=== PATIENT | male | born 1975 | race Caucasian/White ===

== ENCOUNTER 2021-03-31 01:18 | Emergency (ER) | payer OTHER, SELFPAY ==
--- NOTE | ~2021-03-31 | XR_ITS ---
EXAMINATION: XR hand LT min 3V DATE: 03/31/2021 03:51 INDICATION: Pain at the distal left third digit. TECHNIQUE: Posteroanterior, oblique and lateral views of the left hand were obtained. COMPARISON: 02/27/2011 FINDINGS: Alignment is normal. No acute fracture. Old healed fracture at the neck of the fifth metacarpal. Mild osteoarthritis at the second distal interphalangeal joint. Remaining joint spaces are relatively pre served. Soft tissues are unremarkable. IMPRESSION: 1. No acute osseous abnormality. Reviewed, dictated and finalized at location A.
[2021-03-31 01:24] VITALS: BP 168/93; PULSE 108; RESP 20; TEMP 36.6; O2SAT 94
[2021-03-31 03:42] VITALS: BP 143/95; PULSE 82; RESP 17; TEMP 36.7; O2SAT 97
[2021-03-31] MEDS: HYDROcodone/acetaminophen (*CRX) 5-325 MG TABLET 1 TAB PO (03:44)
[2021-03-31] MEDS: CLINDAMYCIN HCL 150 MG CAP 300 MG PO (03:44)
--- NOTE | 2021-03-31 04:38 | ED.GENADULT ---
HPI - General Adult General Chief complaint: Extremity Injury, Upper Stated complaint: finger infection Time Seen by Provider: 03/31/21 03:27 History of Present Illness HPI narrative: Is a 46-year-old gentleman who presents the emergency department chief complaint of left middle finger swelling. The patient states he noticed this or develop some redness around the cuticle area noticed that is tender to touch denies purulent drainage but does report that it feels as though he has not ingrown fingernail. Patient states that he has had no trauma to that area denies foreign body or laceration. Related Data Allergies Allergy/AdvReac Type Severity Reaction Status Date / Time Penicillins Allergy Unknown Verified 11/02/17 08:53 Review of Systems Review of Systems: A 10 system review of systems was completed on the patient and is negative except for what is stated in the HPI. Nursing and ancillary documentation was reviewed. [facility] Family History Family History Mother Diabetes mellitus Family history of elevated blood lipids Depression Family history of malignant neoplasm of breast in first degree relative Family history of type 2 diabetes mellitus Father Hypertension Family history of elevated blood lipids Other Family history of cardiovascular disease Family history of malignant neoplasm Social History Social History Smoking status: Current every day smoker Second hand tobacco smoke exposure: Yes Alcohol intake: current Exam Narrative: GENERAL: Well-appearing, well-nourished, and in no acute distress. HEAD: Normocephalic, atraumatic. EYES: PERRLA and EOMI. ENT: Nares clear, no rhinorrhea or epistaxis. Mucous membranes moist. NECK: Supple. CHEST: Clear to auscultation. No respiratory distress. HEART: Regular rate and rhythm. No murmur heard. Normal peripheral pulses. ABDOMEN: Soft, nontender, nondistended, normal active bowel sounds. EXTREMITIES: Normal range of motion. No edema. SKIN: Warm, dry, no rash. NEURO: No focal deficits. Alert and oriented x3. PSYCH: Normal mood and affect. Course Vital Signs Vital signs: Vital Signs Temperature 36.6 C 03/31/21 01:24 Pulse Rate 108 H 03/31/21 01:24 Respiratory Rate 20 03/31/21 01:24 Blood Pressure 168/93 H 03/31/21 01:24 Pulse Oximetry 94 03/31/21 01:24 Temperature 36.7 C 03/31/21 03:42 Pulse Rate 82 03/31/21 03:42 Respiratory Rate 17 03/31/21 03:42 Blood Pressure 143/95 H 03/31/21 03:42 Pulse Oximetry 97 03/31/21 03:42 Medical Decision Making Vital Signs Vital Signs: Vital Signs Temperature 36.6 C 03/31/21 01:24 Pulse Rate 108 H 03/31/21 01:24 Respiratory Rate 20 03/31/21 01:24 Blood Pressure 168/93 H 03/31/21 01:24 Pulse Oximetry 94 03/31/21 01:24 Temperature 36.7 C 03/31/21 03:42 Pulse Rate 82 03/31/21 03:42 Respiratory Rate 17 03/31/21 03:42 Blood Pressure 143/95 H 03/31/21 03:42 Pulse Oximetry 97 03/31/21 03:42 Discharge Plan Discharge Clinical Impression: Cellulitis of left middle finger Patient Disposition: Home, Self-Care Condition: Stable Instructions: Antibiotic Form, Cellulitis (ED) Prescriptions: New clindamycin HCl 300 mg capsule 300 mg PO Q6H 7 Days Qty: 28 RF: 0 No Action cyclobenzaprine 10 mg tablet 10 mg PO BID Qty: 20 RF: 0 Follow-up/Referrals: Greg Castano MD [Primary Care Provider] - Time of Disposition: 04:40
== END 2021-03-31 05:07 | disposition home or self-care (01) ==
PROVIDERS: Emergency Provider Emergency Medicine; PCP Internal Medicine
DX: L03.012 Cellulitis of left finger (principal); F17.200 Nicotine dependence, unspecified, uncomplicated
CPT/HCPCS: 73130; 99283; A9270

== ENCOUNTER → 2021-08-04 17:08 | Outpatient (CLI) | payer OTHER, SELFPAY ==
--- NOTE | ~2021-08-04 | XR_ITS ---
EXAMINATION: XR knee RT min 4V EXAM DATE: 08/04/2021 17:24 INDICATION: M25.561 - Pain in right knee . TECHNIQUE: Right knee frontal, crosstable lateral, orthogonal oblique projections for interpretation . There is no prior study for comparison. FINDINGS: No evidence osteochondral defect or joint body in the right knee joint. There is mild tri compartmental primary osteoarthritis. Probable small joint effusion. There are no acute fractures id entified. No radiopaque foreign bodies identified. IMPRESSION: 1. Small right knee joint effusion. 2. Mild osteoarthritis. Reviewed, dictated and finalized at location A. [employer]
== END ==
LOC: EXPCRAD 17:11
PROVIDERS: PCP Internal Medicine; Visit Provider Internal Medicine
DX: M25.461 Effusion, right knee (principal); M17.11 Unilateral primary osteoarthritis, right knee
CPT/HCPCS: 73564

== ENCOUNTER 2021-12-14 05:52 | Inpatient (IN) | payer OTHER, SELFPAY ==
[2021-12-14] VITALS (11 sets, daily range): BP systolic 138–159; BP diastolic 80–108; PULSE 78–97; RESP 16–18; TEMP 36.6–37; O2SAT 93–100; BMI 35.0
--- NOTE | ~2021-12-14 | XR_ITS ---
EXAMINATION: XR abdomen NG/feed tube insert DATE: 12/14/2021 12:14 INDICATION: Nasogastric tube placement. TECHNIQUE: An upright view of the abdomen was obtained. COMPARISON: CT abdomen and pelvis 12/14/2021 FINDINGS: The lower abdomen is excluded. The nasogastric tube tip is in the stomach. There is dilated small and large bowel. IMPRESSION: 1. Nasogastric tube tip in the stomach. 2. Dilated bowel, consistent with distal colonic obstruction. Reviewed, dictated and finalized at location A.
--- NOTE | ~2021-12-14 | XR_ITS ---
EXAMINATION: XR enema water soluble EXAM DATE: 12/16/2021 13:37 INDICATION: Sigmoid stricture, possible obstruction TECHNIQUE: Fluoroscopy used during XR enema water soluble performed by Dr. Deshaun Ulloa. Total fluor oscopic time of 0.4. The DAP for this procedure was 17 mGym2. A total of 55 images sent to PACS fro m the exam. Correlation is made to prior barium enema 10/28/2017, and CT scan from 12/14/2021. FINDINGS: Rectal tube was inserted. Small amount of contrast was instilled into the rectum. The ballo on was then inflated under fluoroscopy. Rectal vault was then distended. There is tapered appearance to the rectosigmoid junction. Severe narrowing of the sigmoid colon was demonstrated for about 8-10 c m, lumen only a few millimeters in thickness. Small trickle of contrast did make it beyond this and s tarted to outline stool-filled descending colon proximal to stricture segment. Compared to 2018, sign ificant progression in luminal narrowing. Small outpouching of contrast just distal to the obstruction, probably diverticulum measuring about 2 cm. No uncontained contrast extravasation was demonstrated. IMPRESSION: 1. Severely strictured 8-10 cm length of sigmoid colon. Possible underlying etiologies include adenoc arcinoma and inflammatory related stricture. 2. Colonic diverticulum. Reviewed, dictated and finalized at location A. IMPRESSION: 1. Severely strictured 8-10 cm length of sigmoid colon. Possible underlying rony ologies include adenocarcinoma and inflammatory related stricture. 2. Colonic diverticulum.
--- NOTE | ~2021-12-14 | XR_ITS ---
EXAMINATION: XR abdomen obstructive series DATE: 12/15/2021 08:05 INDICATION: Bowel obstruction. TECHNIQUE: Upright and supine views of the abdomen on 4 radiographs were obtained. COMPARISON: CT abdomen and pelvis 12/14/2021 FINDINGS: There are dilated loops of small bowel. The colon is distended. No free intraperitoneal gas . The nasogastric tube tip is in the stomach. IMPRESSION: 1. Dilated small and large bowel, consistent with distal colonic obstruction. Reviewed, dictated and finalized at location B.
--- NOTE | ~2021-12-14 | XR_ITS ---
EXAMINATION: XR abdomen obstructive series EXAM DATE: 12/16/2021 05:58 INDICATION: Distal colonic obstruction. TECHNIQUE: Frontal upright projection of the upper abdomen, frontal projection of the lower abdomen f or interpretation. Comparison is made to prior examination from 12/15/2021. FINDINGS: Feeding tube is in position. There is moderate amount of colonic stool and gas. Several loo ps of mildly dilated small bowel, with interval improvement compared to yesterday. No evidence of ham e intraperitoneal gas. There is no organomegaly. IMPRESSION: Moderate amount of colonic stool and gas with improved small bowel distention. Reviewed, dictated and finalized at location A.
--- NOTE | ~2021-12-14 | CT_ITS ---
EXAMINATION: CT abdomen pelvis w con DATE: 12/14/2021 09:03 INDICATION: Generalized abdominal pain. Diverticulitis. TECHNIQUE: Computed tomography (CT) of the abdomen and pelvis was performed with 100 mL Omnipaque 350 intravenous contrast. Automated exposure control and iterative reconstruction technique were employe d. The dose-length product was 1622.28 mGy-cm. COMPARISON: CT abdomen and pelvis 07/08/2017 FINDINGS: The visualized portions of the lung bases demonstrate mild dependent atelectasis. No pleura l effusion. The heart size is normal. No pericardial effusion. There is a small sliding hiatal hernia . The liver, gallbladder, spleen, pancreas, adrenal glands, and left kidney are normal. There is a 14 mm cyst in right kidney. There is irregular wall thickening of the sigmoid colon with surrounding fa t stranding. The proximal colon is distended. There are multiple dilated loops of small bowel. There are no pathologically enlarged lymph nodes. There is no free intraperitoneal fluid. There is mild tho racolumbar spondylosis. IMPRESSION: 1. Irregular wall thickening of sigmoid colon with stricture and bowel obstruction, consistent with a cute on chronic diverticulitis or less likely malignancy. Reviewed, dictated and finalized at location A. IMPRESSION: 1. Irregular wall thickening of sigmoid colon with stricture and bowel obstruct ion, consistent with acute on chronic diverticulitis or less likely malignancy.
--- NOTE | 2021-12-14 06:13 | ED.ABDPAIN ---
HPI - Abdominal Pain General Chief Complaint: Abdominal Pain Stated Complaint: diverticulitis flare up. Time Seen by Provider: 12/14/21 06:05 Source: patient, family and RN notes reviewed Mode of arrival: ambulatory Limitations: no limitations History of Present Illness HPI narrative: 46-year-old male history of diverticulitis presenting to the emergency department for evaluation of worsening abdominal pain with associated nausea vomiting. Patient began having symptoms of left lower quadrant pain approximately 2 weeks ago. Patient did have follow-up with his primary care physician and was started on Cipro and Flagyl. Patient states over the course of the week the pain has continued to worsen. Patient states that he has had very few bowel movements over the course of the week. Patient had onset of nausea and vomiting last night. Patient describes feculent emesis. Patient denies any prior history of abdominal surgery. Patient does have history of prior diverticulitis. Patient denies any associated chest pain or shortness of breath. Related Data Allergies Allergy/AdvReac Type Severity Reaction Status Date / Time Penicillins Allergy Unknown unknown Verified 12/14/21 05:58 [facility] Surgical History Surgical History (Updated 12/14/21 @ 16:46 by Loki Tirado MD) History of ear surgery Family History Family History Mother Diabetes mellitus Family history of elevated blood lipids Depression Family history of malignant neoplasm of breast in first degree relative Family history of type 2 diabetes mellitus Father Hypertension Family history of elevated blood lipids Other Family history of cardiovascular disease Family history of malignant neoplasm Social History Social History Smoking packs per day: 2 Smoking cigarettes per day: 40.0 Years smoked: 20 Smoking pack-years: 40.00 Smoking status: Current every day smoker Tobacco type: cigarettes Second hand tobacco smoke exposure: Yes Alcohol intake: never Substance use: never Spiritual care concerns: No Course Course Emergency Course: At time of sign out to Dr Addison labs and CT are pending Vital Signs Vital signs: Vital Signs Temperature 97.8 F 12/14/21 05:55 Pulse Rate 93 12/14/21 05:55 Respiratory Rate 17 12/14/21 05:55 Blood Pressure 150/100 H 12/14/21 05:55 Pulse Oximetry 100 12/14/21 05:55 Temperature 98.4 F 12/14/21 13:50 Pulse Rate 86 12/14/21 13:50 Respiratory Rate 18 12/14/21 13:50 Blood Pressure 156/107 H 12/14/21 13:50 Pulse Oximetry 93 12/14/21 13:50 MDM - Abdominal Pain Lab Data Result diagrams: 12/14/21 06:15 12/14/21 06:31 Labs: Lab Results 12/14/21 12/14/21 12/14/21 Range/Units 06:15 06:31 06:31 WBC 17.3 H (4.5-10.0) K/mm3 RBC 5.27 (4.6-6.20) M/mm3 Hgb 16.1 (14.0-18.0) g/dL Hct 48.3 (42.0-52.0) % MCV 91.7 (80-100) fl MCH 30.6 (26-34) pg MCHC 33.3 (32-36) g/dl RDW 13.6 (11.5-14.5) % Plt Count 386 H (150-375) k/mm3 MPV 10.9 H (7.4-10.4) fl Immature Gran % (Auto) 0.5 (0-0.5) % Neut % (Auto) 86.2 H (45.5-73.1) % Lymph % (Auto) 7.4 L (18.3-44.2) % [place] % (Auto) 5.6 (2.6-8.5) % Eos % (Auto) 0.1 (0-4.4) % Baso % (Auto) 0.2 (0.2-1.2) % Lymph # (Auto) 1.28 (0.9-3.2) K/mm3 [place] # (Auto) 1.0 H (0.1-0.6) K/mm3 Eos # (Auto) 0.0 (0-0.3) K/mm3 Baso # (Auto) 0.0 (0.0-0.1) K/mm3 Abs Immat Gran (auto) 0.09 H (0.00-0.031) K/mm3 Absolute Neuts (auto) 14.9 H (1.3-6.7) K/mm3 Absolute Nucleated RBC 0.0 (0.0-0.012) K/mm3 Nucleated RBC % 0.0 (0.0-0.2) % Sodium 134 L (137-145) mmol/L Potassium 4.8 (3.4-5.0) mmol/L Chloride 97 L (98-107) mmol/L Carbon Dioxide 26 (22-30) mmol/L Anion Gap 11 (8-16) mmol/L BUN 16
[2021-12-14 06:20] LABS: Basophils Percent Auto 0.2 % (0.2-1.2); Eosinophils Percent Auto 0.1 % (0-4.4); Hematocrit 48.3 % (42.0-52.0); Hemoglobin 16.1 g/dL (14.0-18.0); Immature Granulocyte Absolute 0.09 K/mm3 (0.00-0.031); Immature Granulocyte Percent A 0.5 % (0-0.5); Lymphocytes Absolute Auto 1.28 K/mm3 (0.9-3.2); Lymphocytes Percent Auto 7.4 % (18.3-44.2); Mean Corpuscular HGB Conc 33.3 g/dl (32-36); Mean Corpuscular Hemoglobin 30.6 pg (26-34); Mean Corpuscular Volume 91.7 fl (80-100); Mean Platelet Volume 10.9 fl (7.4-10.4); Monocytes Percent Auto 5.6 % (2.6-8.5); Neutrophils Absolute Auto 14.9 K/mm3 (1.3-6.7); Neutrophils Percent Auto 86.2 % (45.5-73.1); Platelet Count Result 386 k/mm3 (150-375); Red Blood Count 5.27 M/mm3 (4.6-6.20); Red Cell Distribution Width 13.6 % (11.5-14.5); White Blood Count 17.3 K/mm3 (4.5-10.0)
[2021-12-14] MEDS: ONDANSETRON INJ 4 MG/2 ML VIAL IV PUSH (06:29)
[2021-12-14] MEDS: SODIUM CHLORIDE 0.9% IV 1,000 ML 999 ML IV CONT ×3 (06:30→12:55)
[2021-12-14] MEDS: HYDROmorphone HCL INJ (*CRX) 1 MG/ML SYR IV PUSH (06:30)
[2021-12-14 06:46] LABS: Alanine Aminotransferase 28 U/L (4-50); Albumin Level 4.4 g/dL (3.5-5.1); Alkaline Phosphatase 144 U/L (38-126); Anion Gap 11 mmol/L (8-16); Aspartate Amino Transferase 26 U/L (17-59); Bilirubin,Total 0.7 mg/dL (0.2-1.3); Blood Urea Nitrogen 16 mg/dL (9-20); Calcium 9.3 mg/dL (8.4-10.2); Carbon Dioxide 26 mmol/L (22-30); Chloride 97 mmol/L (98-107); Estimated Glomerular Filt Rate > 60; Glucose 151 mg/dL (65-110); Lipase 44 U/L (23-300); Potassium 4.8 mmol/L (3.4-5.0); Sodium 134 mmol/L (137-145)
[2021-12-14 06:47] LABS: Lactic Acid Reflex 1.1 mmol/L (0.7-2.1)
--- NOTE | 2021-12-14 09:07 | PC.NURSE ---
Pt ambulated to restroom to attempt urine specimen.
[2021-12-14 09:41] LABS: Appearance Urine Clear (Clear); Bilirubin Urine 1+ (Negative); Blood Urine Negative (Negative); Glucose Urine UA Negative (Negative); Ketones Urine 1+ mg/dL (Negative); Leukocyte Esterase Ur Negative LEU/UL (Negative); Nitrate Urine Negative (Negative); Protein Urine Negative (Negative); pH Urine 6.5 (5.0-9.0)
[2021-12-14 09:43] LABS: Add Urine Microscopic? YES; Color Urine Dark Yellow (Yellow)
[2021-12-14 09:46] LABS: Mucus Urine Rare /lpf; RBC Urine 0-2 /hpf (0-2); WBC Urine 0-3 /hpf
--- NOTE | 2021-12-14 11:49 | PC.NURSE ---
Pt and family requesting results from ERP. ERP made aware x 3. terminal worker notified of delay.
[2021-12-14] MEDS: ONDANSETRON INJ 4 MG/2 ML VIAL 8 MG (11:57)
--- NOTE | 2021-12-14 11:57 | PC.NURSE ---
ERP at bedside to evaluate pt. Pt noted to have emesis. Verbal order for Zofran 8 mg IV given, medicated. Pt is aware of need for NG tube and is agreeable to procedure.
[2021-12-14] MEDS: HYDROmorphone HCL INJ (*CRX) 1 MG/ML SYR 0.5 MG IV PUSH (12:54)
[2021-12-14] MEDS: SODIUM CHLORIDE 0.9% IV 1,000 ML 200 ML IV CONT ×2 (14:23→21:48)
--- NOTE | 2021-12-14 16:39 | PM.CNGS ---
Assessment and Plan Assessment and plan (1) Diverticulitis: Code(s): K57.92 - Diverticulitis of intestine, part unspecified, without perforation or abscess without bleeding Status: Acute Assessment and Plan: Patient appears to have an acute episode of diverticulitis and this is probably extubated the known diverticular stricture in the mix it mid sigmoid. (See CT report). It is good that the patient has had a previous colonoscopy and no definite masses were seen. Plan for now will be to continue with NG decompression, bowel rest, IV antibiotics and see if this resolves for him. Re-evaluation of the possible stricture in the sigmoid would be recommended once the initial inflammation subsides. (2) Obesity (BMI 30-39.9): Code(s): E66.9 - Obesity, unspecified Status: Acute Assessment and Plan: Discussed the importance of losing weight with the patient (3) Nicotine dependence, cigarettes, uncomplicated: Code(s): F17.210 - Nicotine dependence, cigarettes, uncomplicated Status: Acute Assessment and Plan: recommended cessation. I assume that hospitalist will work with him for nicotine patch while inpatient. (4) History of diverticulitis of colon: Code(s): Z87.19 - Personal history of other diseases of the digestive system Status: Acute Assessment and Plan: Review of the old records reveal documentation of previous episodes of diverticulitis in October of 2017, colonoscopy showing no tumor but possible inflammation of the mucosa and stricturing in the mid sigmoid in October of 2017. Also, barium enema confirming same at that time. History of Present Illness Consult details Consult date: 12/14/21 Reason for consult: abdominal pain Requesting physician: Jessica Pettit M.A., MD Narrative: this is 46-year-old White male with a history of multiple episodes of diverticulitis mostly treated as an outpatient in the past but now presenting to the emergency department for evaluation of worsening abdominal pain with associated nausea vomiting. Patient began having symptoms of left lower quadrant pain approximately 2 weeks ago. Patient did have follow-up with his primary care physician and was started on Cipro and Flagyl. Patient states over the course of the week the pain has continued to worsen. Patient states that he has had very few bowel movements over the course of the week. Patient had onset of nausea and vomiting last night. Patient describes feculent emesis. Workup in emergency room showed dilated small bowel and colon within parent inflammatory stricture in the sigmoid colon. ( See CT report). Patient now admitted for NG decompression bowel rest and antibiotics. Patient states he has had a previous colonoscopy and I will look these up and review them it appears the most recent one was 2017. Review of Systems Review of Systems: All systems reviewed & are unremarkable except as noted in HPI and below (HPI) Constitutional: Constitutional: Reports as per HPI, Denies chills, Denies fever(s) and Reports malaise Comments: Patient states that his weight has been pretty consistent and he believes he has about 300 lb right now. Eyes: Eyes: Reports no additional eye complaints ENT: Reports Normal hearing present and Denies dizziness Cardiovascular: Cardiovascular: Reports no additional cardiovascular complaints, Denies chest pain and Denies irregular heart rhythm Respiratory: Respiratory: Reports no additional respiratory complaints Comments: Patient has been a smoker for a while and typically smokes 2 packs a day. He has not stopped. Gastrointestinal: Gastrointestinal: Reports no additional gastrointestinal complaints, Denies abdominal pain and Denies bloating Comments: history of in October 2017 episode of diverticulitis with subsequent colonoscopy by Dr. Meier revealing a narrow area in the mid sigmoid colon. Subsequently the patient had a barium study sh
[2021-12-14] MEDS: metroNIDAZOLE 500 MG/ISO 100ML 500 MG/100 ML BAG 100 MG IVPB (17:16)
--- NOTE | 2021-12-14 17:25 | PM.IMHP ---
H&P: HPI History of Present Illness Date/Time: 12/14/21 17:25 this is a 46-year-old male that presented to our emergency department with complaints generalized abdominal pain and nausea vomiting. Patient patient denies any past medical history. According to patient approximately 1 week he has been experiencing abdominal pain with nausea and vomiting. Patient was given Cipro along with fragile from by his primary care physician with no relief. Patient also notes that he has not had a bowel movement approximately 2 weeks Patient notes that his vomit was brownish in color. Vital signs 156/107, 86, 18, 984, 93% room air, WBC 17 3, hemoglobin 16 1, hematocrit 483, platelets 386, sodium, potassium 8, chloride 7, BUN 16, creatinine 0.90 glucose 1, lactic acid, total bili 0.7, AST 26, ALT 28, urine positive for ketones bilirubin urobilinogen, CT of the abdomen indicate diverticulitis. Patient continues to complain of abdominal pain he no longer has nausea. Patient admitted for diverticulitis Chief Complaint: Abdominal pain nausea vomiting Review of Systems Review of Systems: All systems reviewed & are unremarkable except as noted in HPI and below PMFSH Surgical History Surgical History (Updated 12/14/21 @ 16:46 by Loki Tirado MD) History of ear surgery Family History Family History Mother Diabetes mellitus Family history of elevated blood lipids Depression Family history of malignant neoplasm of breast in first degree relative Family history of type 2 diabetes mellitus Father Hypertension Family history of elevated blood lipids Other Family history of cardiovascular disease Family history of malignant neoplasm Social History Social History Smoking packs per day: 2 Smoking cigarettes per day: 40.0 Years smoked: 20 Smoking pack-years: 40.00 Smoking status: Current every day smoker Tobacco type: cigarettes Second hand tobacco smoke exposure: Yes Alcohol intake: never Substance use: never Spiritual care concerns: No Meds Home Medications and Allergies Home Medications Medication Instructions Recorded Confirmed Type ciprofloxacin HCl 500 mg tablet 500 mg PO Q12H #20 tablet 12/08/21 12/14/21 Rx metronidazole 500 mg tablet 500 mg PO Q8H #30 tablet 12/08/21 12/14/21 Rx Allergies Allergy/AdvReac Type Severity Reaction Status Date / Time Penicillins Allergy Unknown unknown Verified 12/14/21 05:58 Vital Signs Vital Signs - 24 hr 12/14/21 05:55 12/14/21 06:38 12/14/21 06:49 Temperature 97.8 F Pulse Rate 93 86 87 Respiratory Rate 17 18 16 Blood Pressure 150/100 H 143/96 H 149/93 H Pulse Oximetry 100 93 93 12/14/21 07:33 12/14/21 08:24 12/14/21 09:17 Temperature Pulse Rate 89 78 97 Respiratory Rate 18 18 18 Blood Pressure 149/80 H 138/96 H 143/107 H Pulse Oximetry 99 95 98 12/14/21 10:04 12/14/21 11:14 12/14/21 13:00 Temperature Pulse Rate 93 80 78 Respiratory Rate 18 18 18 Blood Pressure 151/94 H 159/108 H 141/98 H Pulse Oximetry 94 96 98 12/14/21 13:50 Temperature 98.4 F Pulse Rate 86 Respiratory Rate 18 Blood Pressure 156/107 H Pulse Oximetry 93 Exam Narrative: General: Pleasant, no obvious distress noted obese HEENT: PERRLA, Mucous Membranes Moist and [place], Nares Patent, Sclera Clear Neck: JVD, Supple Pulmonary: Clear to Auscultation, Normal Air Movement Cardiovascular: No Murmurs, Gallops, or Rubs, Regular Rhythm, Regular Rate Abdominal: Abdomen soft, generalized tenderness Distended, bowel sounds present Extremities: Normal Pulses Integumentary: No Abnormalities Neurological: Normal Gait, Normal Speech Psychological: Mental Status NL, Mood NL H&P: Results Labs Labs: Short CBC 12/14/21 Range/Units 06:15 WBC 17.3 H (4.5-10.0) K/mm3 Hgb 16.1 (14.0-18.0) g/dL Hct 48.3 (42.0-52.0) % Plt Count 3
--- NOTE | 2021-12-14 22:09 | PCRCNOTE ---
Pt's was not able to bring in his home CPAP. Pt was not set up with one of our machines due to pt having an NG tube. Pt's will try to bring pt's home machine 11/28.
[2021-12-15] MEDS: metroNIDAZOLE 500 MG/ISO 100ML 500 MG/100 ML BAG 100 MG IVPB ×5 (01:02→23:48)
[2021-12-15 05:42] VITALS: BP 139/87; PULSE 90; RESP 16; TEMP 36.3; O2SAT 94
[2021-12-15] MEDS: SODIUM CHLORIDE 0.9% IV 1,000 ML 200 ML IV CONT ×3 (06:02→23:48)
[2021-12-15 06:12] LABS: Basophils Percent Auto 0.3 % (0.2-1.2); Eosinophils Absolute Auto 0.2 K/mm3 (0-0.3); Eosinophils Percent Auto 1.4 % (0-4.4); Hematocrit 40.5 % (42.0-52.0); Hemoglobin 13.4 g/dL (14.0-18.0); Immature Granulocyte Absolute 0.05 K/mm3 (0.00-0.031); Immature Granulocyte Percent A 0.5 % (0-0.5); Lymphocytes Absolute Auto 1.81 K/mm3 (0.9-3.2); Lymphocytes Percent Auto 16.5 % (18.3-44.2); Mean Corpuscular HGB Conc 33.1 g/dl (32-36); Mean Corpuscular Volume 90.6 fl (80-100); Mean Platelet Volume 9.6 fl (7.4-10.4); Monocytes Absolute Auto 1.1 K/mm3 (0.1-0.6); Monocytes Percent Auto 10.3 % (2.6-8.5); Neutrophils Absolute Auto 7.8 K/mm3 (1.3-6.7); Platelet Count Result 327 k/mm3 (150-375); Red Blood Count 4.47 M/mm3 (4.6-6.20); Red Cell Distribution Width 13.7 % (11.5-14.5)
[2021-12-15 06:20] LABS: Anion Gap 6 mmol/L (8-16); Blood Urea Nitrogen 14 mg/dL (9-20); Calcium 7.9 mg/dL (8.4-10.2); Carbon Dioxide 28 mmol/L (22-30); Chloride 100 mmol/L (98-107); Estimated CRCL calculation 165 ml/min; Estimated Glomerular Filt Rate > 60; Glucose 95 mg/dL (65-110); Potassium 3.9 mmol/L (3.4-5.0); Sodium 134 mmol/L (137-145)
[2021-12-15 08:00] VITALS: O2SAT 94
--- NOTE | 2021-12-15 10:45 | PM.IMPN ---
Progress Note: A&P Assessment and Plan (1) Diverticulitis: Code(s): K57.92 - Diverticulitis of intestine, part unspecified, without perforation or abscess without bleeding Status: Acute Assessment and Plan: CT of the abdomen Irregular wall thickening of sigmoid colon with stricture and bowel obstruction, consistent with acute on chronic diverticulitis or less likely malignancy. Abdominal xray from 12/15/21 Dilated small and large bowel, consistent with distal colonic obstruction. Patient NPO with a NG tube in place Surgery consulted, continue injury decompression, bowel rest and IV antibiotics Continue Levaquin with Flagyl Continue pain medication Continue IV fluids (2) Obesity (BMI 30-39.9): Code(s): E66.9 - Obesity, unspecified Status: Acute Assessment and Plan: Educated on healthy lifestyle (3) Nicotine dependence, cigarettes, uncomplicated: Code(s): F17.210 - Nicotine dependence, cigarettes, uncomplicated Status: Acute Assessment and Plan: Educated on cessation Order nicotine patch (4) Obstructive sleep apnea: Code(s): G47.33 - Obstructive sleep apnea (adult) (pediatric) Status: Acute Assessment and Plan: Continue home Cpap Time Spent With Patient Time with patient: Greater than 35 minutes Subjective Date/time seen: 12/15/21 10:45 Interval history: Date/Time: 12/14/21 17:25 This is a 46-year-old male that presented to our emergency department with complaints generalized abdominal pain and nausea vomiting. Patient patient denies any past medical history. According to patient approximately 1 week he has been experiencing abdominal pain with nausea and vomiting. Patient was given Cipro along with fragile from by his primary care physician with no relief. Patient also notes that he has not had a bowel movement approximately 2 weeks Patient notes that his vomit was brownish in color. Vital signs 156/107, 86, 18, 984, 93% room air, WBC 17 3, hemoglobin 16 1, hematocrit 483, platelets 386, sodium, potassium 8, chloride 7, BUN 16, creatinine 0.90 glucose 1, lactic acid, total bili 0.7, AST 26, ALT 28, urine positive for ketones bilirubin urobilinogen, CT of the abdomen indicate diverticulitis. Patient continues to complain of abdominal pain he no longer has nausea. Patient admitted for diverticulitis. Date/Time 12/15/21 1045 Patient was resting comfortably. He stated that he did have any pain at this time. He did still have an NG tube to suction which was sucking a brown thick fluid. Patient denies any nausea, vomiting, chest pain, shortness of breath, headaches. Patient did state that he feels very weak and tired today. He also stated that he is hungry and was doing well with ice chips. Patient also stated he has been urinating okay he has been walking around as much that can. He did complain of 3 episodes of diarrhea. Talked to surgery who stated that they are going to try to advance the diet, and remove the NG tube. Review of Systems Review of Systems: All systems reviewed & are unremarkable except as noted in HPI and below Exam Const: General: cooperative, no acute distress, well developed, alert, awake, acute distress, anxious, ill appearing, tired appearing and uncomfortable Nutritional Appearance: well nourished Orientation/consciousness: oriented to person, oriented to place, oriented to time and patient oriented x3 Limitations: no limitations HENMT: Head: normal to inspection Ears: hearing grossly normal bilaterally General nose exam: Normal external nose present Mouth: Yes Normal oral and palatal mucosa present, Yes lip normal and Yes tongue normal Teeth and gingiva: abnormal tooth and associated gingiva and poor dentition Eyes: General: appearance normal, both eyes and all related structures Neck: Neck: normal visual inspection, full ROM, trachea midline and supple Chest: Chest palpatio
--- NOTE | 2021-12-15 13:21 | PM.PNGS ---
Progress Note: A&P Assessment and Plan (1) Diverticulitis: Code(s): K57.92 - Diverticulitis of intestine, part unspecified, without perforation or abscess without bleeding Status: Acute Assessment and Plan: Clinically improving, WBC trending down, not complaining of any abdominal pain today. Still had 600 cc out of NG overnight, but had 3 BMs. Plain films this morning still suggest a distal colonic obstruction. Will continue NG tube, NPO, IV fluids. Continue IV antibiotics. Repeat an obstructive series tomorrow. Encouraged walking the halls. Will likely order a Hypaque enema in the next 1-2 days depending on how the patient progresses. (2) Obesity (BMI 30-39.9): Code(s): E66.9 - Obesity, unspecified Status: Acute (3) History of diverticulitis of colon: Code(s): Z87.19 - Personal history of other diseases of the digestive system Status: Acute Assessment and Plan: Previous episodes of diverticulitis with documentation of an episode in October of 2017 with a colonoscopy showing no tumor but possible inflammation with stricturing of the mid sigmoid colon, and a barium enema confirming. (4) Nicotine dependence, cigarettes, uncomplicated: Code(s): F17.210 - Nicotine dependence, cigarettes, uncomplicated Status: Acute Assessment and Plan: Patient on a nicotine patch. Strongly recommend cessation. Additional Plan I have discussed the patient's case and plan of care with Dr. Tirado. Subjective Subjective Date/Time Seen: 12/15/21 11:41 Patient reports: no new complaints, feels better, flatus, bowel movement and afebrile Interval history: This is a 46 yo male who presented to the ER with abdominal pain and was found to have narrowing of the sigmoid colon on CT with wall thickening, suggesting acute on chronic diverticulitis with stricture. The patient was admitted and is on IV Levaquin and Flagyl. He has an NG tube in place and is currently NPO. Chart reviewed and patient was seen and examined this morning. He reports feeling well today. He denies any abdominal pain or bloating. He actually reports feeling hungry this morning. He reports flatus and had 3 large liquid bowel movements overnight. NG tube had 600 cc documented output overnight. No other complaints at this time. Plain films this morning showed dilated small and large bowel, consistent with distal colonic obstruction. Review of Systems Review of Systems: All systems reviewed & are unremarkable except as noted in HPI and below Exam Const: General: comfortable and no acute distress Orientation/consciousness: patient oriented x3 GI: Inspection: obesity (appears obese with some distention) GI Palp: Yes Soft to palpation, No Tenderness to palpation present (GI), No Guarding due to palpation present (GI) and No Rebound tenderness present Auscultation: Hypoactive bowel sounds present Neuro: General: moves all extremities and no focal motor deficits Extrem: General: normal to inspection Psych: Insight: Good insight present (Psych) Judgement: Good judgement present (Psych) Objective Data Vital Signs Vital Signs: Vital Signs - 24 hr 12/14/21 13:50 12/14/21 21:51 12/15/21 05:42 Temperature 98.4 F 98.6 F 97.3 F L Pulse Rate 86 89 90 Respiratory Rate 18 16 16 Blood Pressure 156/107 H 149/86 H 139/87 Pulse Oximetry 93 94 94 Intake/Output Intake/Output: Intake & Output 12/12/21 12/13/21 12/14/21 12/15/21 23:59 23:59 23:59 23:59 Intake Total 3100 1200 Output Total 350 600 Balance 2750 600 Meds/Results Medications: Active Medications Generic Name Dose Route Start Last Admin Trade Name Freq PRN Reason Stop Dose Admin Hydromorphone HCl 0.5 mg 12/14/21 12:00 Hydromorphone Hcl Inj (*Crx) 1 Mg/Ml Syr IV PUSH Q4H PRN Pain Rated 7-10 Metronidazole 500 mg in 100 mls @ 100 mls/hr 12/14/21 18:00 12/15/21 13:02 Flagyl 500 Mg/Iso Soln 100 Ml IVPB 100 mls/hr Q6H JP A
[2021-12-15 14:00] VITALS: BP 144/78; PULSE 95; RESP 16; TEMP 36.7; O2SAT 94
[2021-12-15] MEDS: PANTOPRAZOLE SODIUM IV 40 MG VIAL IV PUSH ×2 (15:28→20:44)
[2021-12-15 15:35] VITALS: BP 144/78; PULSE 95; RESP 16; TEMP 36.7; O2SAT 94
[2021-12-15] MEDS: ONDANSETRON INJ 4 MG/2 ML VIAL IV PUSH (17:44)
--- NOTE | 2021-12-15 21:05 | PC.NURSE ---
Fleets enema given per orders, medium soft bowel movement resulted.
[2021-12-15 22:00] VITALS: BP 136/82; PULSE 106; RESP 20; TEMP 36.6; O2SAT 90
[2021-12-16 05:40] VITALS: BP 138/82; PULSE 98; RESP 20; TEMP 36.9; O2SAT 91
[2021-12-16] MEDS: metroNIDAZOLE 500 MG/ISO 100ML 500 MG/100 ML BAG 100 MG IVPB ×3 (06:25→17:01)
[2021-12-16 06:29] LABS: Basophils Absolute Auto 0.1 K/mm3 (0.0-0.1); Basophils Percent Auto 0.5 % (0.2-1.2); Eosinophils Absolute Auto 0.2 K/mm3 (0-0.3); Eosinophils Percent Auto 1.5 % (0-4.4); Hematocrit 39.4 % (42.0-52.0); Hemoglobin 12.8 g/dL (14.0-18.0); Immature Granulocyte Absolute 0.04 K/mm3 (0.00-0.031); Immature Granulocyte Percent A 0.4 % (0-0.5); Lymphocytes Absolute Auto 1.55 K/mm3 (0.9-3.2); Lymphocytes Percent Auto 15.2 % (18.3-44.2); Mean Corpuscular HGB Conc 32.5 g/dl (32-36); Mean Corpuscular Hemoglobin 30.3 pg (26-34); Mean Corpuscular Volume 93.1 fl (80-100); Mean Platelet Volume 9.8 fl (7.4-10.4); Monocytes Absolute Auto 1.2 K/mm3 (0.1-0.6); Monocytes Percent Auto 11.6 % (2.6-8.5); Neutrophils Absolute Auto 7.2 K/mm3 (1.3-6.7); Neutrophils Percent Auto 70.8 % (45.5-73.1); Platelet Count Result 298 k/mm3 (150-375); Red Blood Count 4.23 M/mm3 (4.6-6.20); Red Cell Distribution Width 13.8 % (11.5-14.5); White Blood Count 10.2 K/mm3 (4.5-10.0)
[2021-12-16 06:40] LABS: Alanine Aminotransferase 21 U/L (4-50); Albumin Level 3.3 g/dL (3.5-5.1); Alkaline Phosphatase 95 U/L (38-126); Anion Gap 7 mmol/L (8-16); Aspartate Amino Transferase 25 U/L (17-59); Bilirubin,Total 0.6 mg/dL (0.2-1.3); Blood Urea Nitrogen 13 mg/dL (9-20); Calcium 7.8 mg/dL (8.4-10.2); Carbon Dioxide 28 mmol/L (22-30); Chloride 99 mmol/L (98-107); Estimated CRCL calculation 146 ml/min; Estimated Glomerular Filt Rate > 60; Glucose 83 mg/dL (65-110); Magnesium 2.1 mg/dL (1.6-2.3); Potassium 3.5 mmol/L (3.4-5.0); Sodium 134 mmol/L (137-145)
[2021-12-16] MEDS: SODIUM CHLORIDE 0.9% IV 1,000 ML 200 ML IV CONT ×2 (06:48→08:31)
--- NOTE | 2021-12-16 08:00 | PM.IMPN ---
Progress Note: A&P Assessment and Plan (1) Diverticulitis: Code(s): K57.92 - Diverticulitis of intestine, part unspecified, without perforation or abscess without bleeding Status: Acute Assessment and Plan: CT of the abdomen Irregular wall thickening of sigmoid colon with stricture and bowel obstruction, consistent with acute on chronic diverticulitis or less likely malignancy. Abdominal xray from 12/16/21 Moderate amount of colonic stool and gas with improved small bowel distention. Patient NPO with a NG tube in place, clamped at this time Radiographic enema ordered Surgery consulted, continue injury decompression, bowel rest and IV antibiotics Continue Levaquin with Flagyl Continue pain medication Continue IV fluids (2) Obesity (BMI 30-39.9): Code(s): E66.9 - Obesity, unspecified Status: Acute Assessment and Plan: Educated on healthy lifestyle (3) Nicotine dependence, cigarettes, uncomplicated: Code(s): F17.210 - Nicotine dependence, cigarettes, uncomplicated Status: Acute Assessment and Plan: Educated on cessation Order nicotine patch (4) Obstructive sleep apnea: Code(s): G47.33 - Obstructive sleep apnea (adult) (pediatric) Status: Acute Assessment and Plan: Continue home Cpap Subjective Date/time seen: 12/16/21 0800 Interval history: Date/Time: 12/14/21 17:25 This is a 46-year-old male that presented to our emergency department with complaints generalized abdominal pain and nausea vomiting. Patient patient denies any past medical history. According to patient approximately 1 week he has been experiencing abdominal pain with nausea and vomiting. Patient was given Cipro along with fragile from by his primary care physician with no relief. Patient also notes that he has not had a bowel movement approximately 2 weeks Patient notes that his vomit was brownish in color. Vital signs 156/107, 86, 18, 984, 93% room air, WBC 17 3, hemoglobin 16 1, hematocrit 483, platelets 386, sodium, potassium 8, chloride 7, BUN 16, creatinine 0.90 glucose 1, lactic acid, total bili 0.7, AST 26, ALT 28, urine positive for ketones bilirubin urobilinogen, CT of the abdomen indicate diverticulitis. Patient continues to complain of abdominal pain he no longer has nausea. Patient admitted for diverticulitis. Date/Time 12/15/21 1045 Patient was resting comfortably. He stated that he did have any pain at this time. He did still have an NG tube to suction which was sucking a brown thick fluid. Patient denies any nausea, vomiting, chest pain, shortness of breath, headaches. Patient did state that he feels very weak and tired today. He also stated that he is hungry and was doing well with ice chips. Patient also stated he has been urinating okay he has been walking around as much that can. He did complain of 3 episodes of diarrhea. Talked to surgery who stated that they are going to try to advance the diet, and remove the NG tube. Date/Time 12/16/21 0800 Patient stated that he was feeling better today. He stated that he is hungry and wants something to eat. He denies any chest pain, shortness of breath, nausea, vomiting, diarrhea, weakness, fatigue, sweats, fevers, or chills. His NG tube looks to be broken and they have the valve stuck in the large lumen, and have the suction on the air tube. He stated that he has been getting up and walking around. Talked with who ordered a XR enema. At this time NG tube is clamped. Review of Systems Review of Systems: All systems reviewed & are unremarkable except as noted in HPI and below Exam Const: General: cooperative, healthy appearing, no acute distress, well developed, alert and awake Nutritional Appearance: well nourished, obese and overweight Orientation/consciousness: oriented to person, oriented to place, oriented to time and patient oriented x3 Limitations: no limitations HEN
[2021-12-16] MEDS: PANTOPRAZOLE SODIUM IV 40 MG VIAL IV PUSH ×2 (08:19→20:15)
[2021-12-16 14:00] VITALS: BP 140/93; PULSE 78; RESP 18; TEMP 37.1; O2SAT 98
--- NOTE | 2021-12-16 14:21 | PM.PNGS ---
Progress Note: A&P Assessment and Plan (1) Diverticulitis: Code(s): K57.92 - Diverticulitis of intestine, part unspecified, without perforation or abscess without bleeding Status: Acute Assessment and Plan: Continues to clinically improve. NG output was less overnight and he is having liquid stools. Plain films this morning look improved with less small bowel distention. He was given a fleets enema last night and we asked the nurse to give another this morning. Will go ahead and order a Hypaque enema today and decide on removing the NG tube depending on these results. Continue IV antibiotics Continue IV fluids and NPO status while await enema results. (2) Obesity (BMI 30-39.9): Code(s): E66.9 - Obesity, unspecified Status: Acute (3) History of diverticulitis of colon: Code(s): Z87.19 - Personal history of other diseases of the digestive system Status: Acute Assessment and Plan: Previous episodes of diverticulitis with documentation of an episode in October of 2017 with a colonoscopy showing no tumor but possible inflammation with stricturing of the mid sigmoid colon, and a barium enema confirming. (4) Nicotine dependence, cigarettes, uncomplicated: Code(s): F17.210 - Nicotine dependence, cigarettes, uncomplicated Status: Acute Assessment and Plan: Patient on a nicotine patch. Strongly recommend cessation. Additional Plan I have discussed the patient's case and plan of care with Dr. Tirado. Subjective Subjective Date/Time Seen: 12/16/21 10:21 Patient reports: no new complaints, feels better, flatus, bowel movement and afebrile Interval history: Patient seen and examined today. He reports feeling much better today and is actually only complaining of hunger. He denies any abdominal pain or bloating. He has been ambulating in the halls and tolerating this well. He is able to tolerate the NG tube when it is clamped. He reports having at least 2-3 liquid stools overnight after receiving a fleets enema last evening, then then a few more liquid stools this morning. Review of Systems Review of Systems: All systems reviewed & are unremarkable except as noted in HPI and below Exam Const: General: comfortable, no acute distress and awake Orientation/consciousness: patient oriented x3 GI: Inspection: non-distended and obesity GI Palp: Yes Soft to palpation, Yes Tenderness to palpation present (GI) (mild LLQ tenderness), No Guarding due to palpation present (GI) and No Rebound tenderness present Auscultation: Hypoactive bowel sounds present Neuro: General: moves all extremities and no focal motor deficits Extrem: General: normal to inspection Psych: Insight: Good insight present (Psych) Judgement: Good judgement present (Psych) Objective Data Vital Signs Vital Signs: Vital Signs - 24 hr 12/15/21 15:35 12/15/21 22:00 12/16/21 05:40 Temperature 98.1 F 97.9 F 98.4 F Pulse Rate 95 106 H 98 Respiratory Rate 16 20 20 Blood Pressure 144/78 H 136/82 138/82 Pulse Oximetry 94 90 91 Intake/Output Intake/Output: Intake & Output 12/13/21 12/14/21 12/15/21 12/16/21 23:59 23:59 23:59 23:59 Intake Total 3100 3650 2700 Output Total 350 1800 400 Balance 2750 1850 2300 Meds/Results Medications: Active Medications Generic Name Dose Route Start Last Admin Trade Name Freq PRN Reason Stop Dose Admin Hydromorphone HCl 0.5 mg 12/14/21 12:00 Hydromorphone Hcl Inj (*Crx) 1 Mg/Ml Syr IV PUSH Q4H PRN Pain Rated 7-10 Metronidazole 500 mg in 100 mls @ 100 mls/hr 12/14/21 18:00 12/16/21 12:55 Flagyl 500 Mg/Iso Soln 100 Ml IVPB Infused Q6H JP Infusion Levofloxacin/Dextrose 750 mg in 150 mls @ 100 mls/hr 12/15/21 13:00 12/16/21 13:35 Levaquin 750 Mg/D5w 150 Ml IVPB 100 mls/hr Q24H JP Administration Sodium Chloride 1,000 mls @ 200 mls/hr 12/14/21 12:00 12/16/21 08:31 Normal Saline Iv IV CONT 200 mls/hr .Q5H JP
[2021-12-16 20:12] VITALS: O2SAT 96
[2021-12-16] MEDS: SODIUM CHLORIDE 0.9% IV 1,000 ML 50 ML IV CONT (20:15)
[2021-12-16 22:00] VITALS: BP 142/78; PULSE 105; RESP 18; TEMP 36.7; O2SAT 94
[2021-12-16] MEDS: MELATONIN 5 MG TABLET PO (23:39)
[2021-12-17] MEDS: metroNIDAZOLE 500 MG/ISO 100ML 500 MG/100 ML BAG 100 MG IVPB ×2 (00:13→05:07)
[2021-12-17 05:11] VITALS: BP 126/80; PULSE 87; RESP 16; TEMP 37.2; O2SAT 92
[2021-12-17 05:38] LABS: Basophils Percent Auto 0.4 % (0.2-1.2); Eosinophils Absolute Auto 0.1 K/mm3 (0-0.3); Eosinophils Percent Auto 1.3 % (0-4.4); Hematocrit 37.6 % (42.0-52.0); Hemoglobin 12.5 g/dL (14.0-18.0); Immature Granulocyte Absolute 0.05 K/mm3 (0.00-0.031); Immature Granulocyte Percent A 0.5 % (0-0.5); Lymphocytes Absolute Auto 1.76 K/mm3 (0.9-3.2); Lymphocytes Percent Auto 18.8 % (18.3-44.2); Mean Corpuscular HGB Conc 33.2 g/dl (32-36); Mean Corpuscular Hemoglobin 29.8 pg (26-34); Mean Corpuscular Volume 89.7 fl (80-100); Mean Platelet Volume 9.4 fl (7.4-10.4); Monocytes Absolute Auto 1.3 K/mm3 (0.1-0.6); Monocytes Percent Auto 13.6 % (2.6-8.5); Neutrophils Absolute Auto 6.1 K/mm3 (1.3-6.7); Neutrophils Percent Auto 65.4 % (45.5-73.1); Platelet Count Result 270 k/mm3 (150-375); Red Blood Count 4.19 M/mm3 (4.6-6.20); Red Cell Distribution Width 13.6 % (11.5-14.5); White Blood Count 9.4 K/mm3 (4.5-10.0)
[2021-12-17 05:49] LABS: Alanine Aminotransferase 20 U/L (4-50); Albumin Level 3.2 g/dL (3.5-5.1); Alkaline Phosphatase 91 U/L (38-126); Anion Gap 6 mmol/L (8-16); Aspartate Amino Transferase 25 U/L (17-59); Bilirubin,Total 0.6 mg/dL (0.2-1.3); Blood Urea Nitrogen 10 mg/dL (9-20); Calcium 7.9 mg/dL (8.4-10.2); Carbon Dioxide 29 mmol/L (22-30); Chloride 99 mmol/L (98-107); Estimated CRCL calculation 165 ml/min; Estimated Glomerular Filt Rate > 60; Glucose 87 mg/dL (65-110); Magnesium 1.9 mg/dL (1.6-2.3); Potassium 3.2 mmol/L (3.4-5.0); Sodium 134 mmol/L (137-145)
[2021-12-17] MEDS: PANTOPRAZOLE SODIUM IV 40 MG VIAL IV PUSH (08:07)
[2021-12-17] MEDS: levoFLOXacin 750 MG TABLET PO (11:10)
--- NOTE | 2021-12-17 11:19 | PCDIET ---
Dietitian consult for low fiber diet. See nutritional teaching intervention. Thank you for the consult.
--- NOTE | 2021-12-17 12:00 | PM.DS ---
DS: Admitting Diagnosis Discharge Date 12/17/21 1200 Admitting Diagnosis Diverticulitis DS: Discharge Diagnosis Discharge Diagnosis (1) Diverticulitis: Code(s): K57.92 - Diverticulitis of intestine, part unspecified, without perforation or abscess without bleeding Status: Acute Assessment and Plan: CT of the abdomen Irregular wall thickening of sigmoid colon with stricture and bowel obstruction, consistent with acute on chronic diverticulitis or less likely malignancy. Abdominal xray from 12/16/21 Moderate amount of colonic stool and gas with improved small bowel distention. Patient NPO with a NG tube in place, clamped at this time Radiographic enema ordered Surgery consulted, continue injury decompression, bowel rest and IV antibiotics Continue Levaquin with Flagyl Continue pain medication Continue IV fluids (2) Obesity (BMI 30-39.9): Code(s): E66.9 - Obesity, unspecified Status: Acute Assessment and Plan: Educated on healthy lifestyle (3) Nicotine dependence, cigarettes, uncomplicated: Code(s): F17.210 - Nicotine dependence, cigarettes, uncomplicated Status: Acute Assessment and Plan: Educated on cessation Order nicotine patch (4) Obstructive sleep apnea: Code(s): G47.33 - Obstructive sleep apnea (adult) (pediatric) Status: Acute Assessment and Plan: Continue home Cpap DS: Summary Hospital Course Hospital Course: Patient is a 46-year-old male with no significant past medical history who presented the ED with complaints of abdominal pain accompanied with nausea vomiting. Prior to admission patient was experiencing abdominal pain with nausea vomiting for 1 week. PCP prescribed him Cipro and Flagyl however did not gain any relief. Upon arrival patient was initiated with IV antibiotics of Levaquin and Flagyl. NG was placed and placed to intermittent suction and brown stomach contents was removed. Patient was NPO for bowel rest. General surgery was consulted. Abdominal x-rays did show irregular wall thickening of the sigmoid colon with stricture and follow up obstruction consistent with acute on chronic diverticulitis. Serial abdominal x-rays were taken and obstruction has improved. Patient did undergo a radiographic enema which did not show any diverticula or residual contrast however patient was noted to have a stricture. General surgery has presented the patient with 2 options of surgical and conservative management. Patient would like to stick with this conservative management at this time. Patient will need to follow up with GI to see if possible balloon stretching could be performed otherwise if symptoms and stricture persist patient will likely need bowel resection with ostomy. Diet has been restarted patient has been slowly advanced. Patient has been tolerating his diet and is ready to go home. Patient is stable for discharge at this time according to his labs and vital signs. Patient will finish his course of antibiotics at home. Status at Discharge Functional status at discharge: independent ambulation Overall status at discharge: patient is progressing back to baseline Time Spent with Patient Time attestation: Total time spent providing and/or coordinating discharge services: 32 minutes Time spent: Greater than 30 minutes Specific discharge activities: Diagnostic testing, chart review, developing a treatment plan, education, care coordination documentation, physical exam, result review Exam Const: General: cooperative, healthy appearing, no acute distress, well developed, alert and awake Nutritional Appearance: well nourished, obese and overweight Orientation/consciousness: oriented to person, oriented to place, oriented to time and patient oriented x3 Limitations: no limitations HENMT: Head: normal to inspection Ears: hearing grossly normal bilaterally General nose exam: Normal external nose
--- NOTE | 2021-12-17 13:06 | PCNSR ---
On 12/17/21, the student, Criss Najera, provided care and completed [facility] documentation on this patient. I have reviewed the student's documentation and agree with the findings.
--- NOTE | 2021-12-17 13:25 | PM.PNGS ---
Progress Note: A&P Assessment and Plan (1) Diverticulitis: Code(s): K57.92 - Diverticulitis of intestine, part unspecified, without perforation or abscess without bleeding Status: Acute Assessment and Plan: Continues to clinically improve. WBC normal and he is afebrile. No abdominal pain and his exam is benign. Hypaque enema showed a severely strictured 8-10 cm length of sigmoid colon. Options were discussed with the patient by Dr. Tirado yesterday and the patient opted trying to advance his diet and go home with outpatient follow-up rather than having surgery while hospitalized with the higher possibility of an ostomy. Advanced to a low fiber diet. Dietitian consulted for education. Okay to discharge later today if he continues to tolerate his diet. Will have him follow-up with Dr. Tirado in 1 week. We will speak with GI regarding setting him up for a colonoscopy with possible balloon dilatation as an outpatient. Recommend another week of oral antibiotics. (2) Obesity (BMI 30-39.9): Code(s): E66.9 - Obesity, unspecified Status: Acute (3) History of diverticulitis of colon: Code(s): Z87.19 - Personal history of other diseases of the digestive system Status: Acute Assessment and Plan: Previous episodes of diverticulitis with documentation of an episode in October of 2017 with a colonoscopy showing no tumor but possible inflammation with stricturing of the mid sigmoid colon, and a barium enema confirming. (4) Nicotine dependence, cigarettes, uncomplicated: Code(s): F17.210 - Nicotine dependence, cigarettes, uncomplicated Status: Acute Assessment and Plan: Patient on a nicotine patch. Strongly recommend cessation. Additional Plan I have discussed the patient's case and plan of care with Dr. Tirado. Subjective Subjective Date/Time Seen: 12/17/21 13:25 Patient reports: no new complaints, tolerating a regular diet (low fiber), voiding w/o difficulty, flatus, bowel movement and afebrile Interval history: Patient seen and examined. He reports feeling good today. He feels he keeps feeling better every day. He has had multiple BMs through the night and this morning. He denies abdominal pain, nausea, vomiting, or bloating. He is tolerating low fiber diet. No other complaints at this time. Review of Systems Review of Systems: All systems reviewed & are unremarkable except as noted in HPI and below Exam Const: General: comfortable, no acute distress and awake Orientation/consciousness: patient oriented x3 GI: Inspection: non-distended and obesity GI Palp: Yes Soft to palpation, No Tenderness to palpation present (GI), No Guarding due to palpation present (GI) and No Rebound tenderness present Auscultation: normal bowel sounds Neuro: General: moves all extremities and no focal motor deficits Extrem: General: normal to inspection Psych: Insight: Good insight present (Psych) Judgement: Good judgement present (Psych) Objective Data Vital Signs Vital Signs: Vital Signs - 24 hr 12/16/21 14:00 12/16/21 20:12 12/16/21 22:00 Temperature 98.8 F 98.1 F Pulse Rate 78 105 H Respiratory Rate 18 18 Blood Pressure 140/93 H 142/78 H Pulse Oximetry 98 96 94 12/17/21 05:11 Temperature 99 F Pulse Rate 87 Respiratory Rate 16 Blood Pressure 126/80 Pulse Oximetry 92 Intake/Output Intake/Output: Intake & Output 12/14/21 12/15/21 12/16/21 12/17/21 23:59 23:59 23:59 23:59 Intake Total 3100 3650 3950 1122 Output Total 350 1800 400 600 Balance 2750 1850 3550 522 Meds/Results Medications: Active Medications Generic Name Dose Route Start Last Admin Trade Name Freq PRN Reason Stop Dose Admin Levofloxacin 750 mg 12/17/21 09:00 12/17/21 11:10 Levofloxacin 750 Mg Tablet PO 750 mg DAILY JP Administration Melatonin 5 mg 12/16/21 22:30 12/16/21 23:39 Melatonin 5 Mg Tablet PO 12/19/21 22:29 5 mg HS PRN Administration Insomnia [place]
[2021-12-17 14:00] VITALS: BP 136/76; PULSE 89; RESP 18; TEMP 36.3; O2SAT 96
[2021-12-17] MEDS: metroNIDAZOLE 250 MG TABLET 500 MG PO (15:07)
== END 2021-12-17 15:50 | disposition home or self-care (01) | DRG 392 ==
LOC: ANHED 11:50 → ANH3MEDSUR 16:23
PROVIDERS: Emergency Medicine; Admitting Provider Family Medicine; Emergency Provider Emergency Medicine; PCP Internal Medicine; Visit Provider Nurse Practitioner
DX: K57.32 Diverticulitis of large intestine without perforation or abscess without bleeding (principal); E66.9 Obesity, unspecified; Z68.35 Body mass index [BMI] 35.0-35.9, adult; F17.210 Nicotine dependence, cigarettes, uncomplicated; G47.33 Obstructive sleep apnea (adult) (pediatric)
CPT/HCPCS: 36415; 74019; 74177; 74270; 80048; 80053; 81001; 83605; 83690; 83735; 85025; 96361; 96374; 96375; 96376; 99285; A9270; C9113; J0131; J1170; J1956; J2405; J7030; Q9967

== ENCOUNTER 2021-12-29 21:03 | Inpatient (IN) | payer OTHER, SELFPAY ==
--- NOTE | ~2021-12-29 | XR_ITS ---
EXAMINATION: XR abdomen obstructive series DATE: 01/03/2022 08:14 INDICATION: Partial colonic obstruction TECHNIQUE: Upright and supine views of the abdomen were obtained. COMPARISON: 12/31/2021 FINDINGS: There is persistent focal thickening of the transverse colon. No dilated loops of bowel are seen. There are persistent air-fluid levels in the abdomen. The nasogastric tube is in the stomach. IMPRESSION: 1. Some persistent air-fluid levels in nondilated loops of bowel, ileus versus partial obstruction. Reviewed, dictated and finalized at location A.
--- NOTE | ~2021-12-29 | XR_ITS ---
EXAMINATION: XR abdomen obstructive series DATE: 12/31/2021 08:58 INDICATION: Colonic obstruction. TECHNIQUE: Upright and supine views of the abdomen on 3 radiographs were obtained. COMPARISON: CT abdomen and pelvis 12/30/2021 FINDINGS: The transverse colon is distended with fold thickening. The small bowel is normal in calibe r. The nasogastric tube tip is in the stomach. No free intraperitoneal gas. IMPRESSION: 1. Distended transverse colon with fold thickening, consistent with distal obstruction. Reviewed, dictated and finalized at location B. IMPRESSION: 1. Distended transverse colon with fold thickening, consistent with distal obst ruction.
--- NOTE | ~2021-12-29 | XR_ITS ---
EXAMINATION: XR abdomen/kub 1V DATE: 12/29/2021 23:45 INDICATION: Abdominal pain TECHNIQUE: A supine view of the abdomen on 4 radiographs was obtained. COMPARISON: CT dated 12/14/2021 and 01/26/2022 FINDINGS: Large amount of stool in the proximal colon with small to moderate amount scattered throughout the mo re distal colon. A few gas-filled but not frankly dilated loops of small bowel in the central abdomen . Visualized lung bases are clear. IMPRESSION: 1. Nonspecific bowel gas pattern with overall moderate amount of colonic stool which could be seen wi th constipation or partial colonic obstruction resulting from the previous noted stricture, potential ly malignant, at the sigmoid colon. Reviewed, dictated and finalized at location A. IMPRESSION: 1. Nonspecific bowel gas pattern with overall moderate amount of colonic stool which could be seen with constipation or partial colonic obstruction resulting from the previous noted stricture, potentially malignant, at the sigmoid colon.
--- NOTE | ~2021-12-29 | CT_ITS ---
EXAMINATION: CT abdomen pelvis w con DATE: 12/30/2021 00:44 INDICATION: Lower abdominal pain. TECHNIQUE: Computed tomography (CT) of the abdomen and pelvis was performed with 100 mL Omnipaque 350 intravenous contrast. Automated exposure control and iterative reconstruction technique were employe d. The dose-length product was 1616.76 mGy-cm. COMPARISON: CT abdomen and pelvis 12/14/2021 FINDINGS: The visualized portions of the lung bases demonstrate mild atelectasis. No pleural effusion . The heart size is normal. No pericardial effusion. The liver, gallbladder, spleen, and adrenal glan ds are normal. There is a punctate calcification in the pancreas, consistent with chronic pancreatiti s. There is a 15 mm cyst in right kidney. Left kidney is normal. There is wall thickening of the sigm oid colon, which is small in caliber. There is extension of soft tissue and fat stranding into the me sentery. There is a small focus of gas within this extraluminal soft tissue. The colon is dilated pro ximal to this area. The appendix is normal. There are no pathologically enlarged lymph nodes. There i s no free intraperitoneal fluid. There is mild thoracic spondylosis and moderate lumbar spondylosis. IMPRESSION: 1. Stable irregular wall thickening of sigmoid colon with stricture, microperforation, and proximal o bstruction, consistent with chronic diverticulitis versus malignancy. Reviewed, dictated and finalized at location D. IMPRESSION: 1. Stable irregular wall thickening of sigmoid colon with stricture, microperfo ration, and proximal obstruction, consistent with chronic diverticulitis versus malignancy.
--- NOTE | ~2021-12-29 | XR_ITS ---
EXAMINATION: XR abdomen NG/feed tube insert DATE: 12/30/2021 03:01 INDICATION: Nasogastric tube placement TECHNIQUE: A supine view of the abdomen and lower chest was obtained for evaluation of feeding tube placement. COMPARISON: CT dated 12/30/2021 FINDINGS: Nasogastric tube coiled in the body of the stomach. No dilated loops of gas-filled bowel in the visua lized upper abdomen. Lungs are clear with no focal airspace opacities, pulmonary edema, pleural effus ion or pneumothorax. Heart size is normal. IMPRESSION: 1. Nasogastric tube in the stomach. Reviewed, dictated and finalized at location A.
--- NOTE | ~2021-12-29 | XR_ITS ---
XR abdomen obstructive series DATE: 01/05/2022 08:51 INDICATION: Sigmoid colon obstruction TECHNIQUE: Supine and upright AP views COMPARISON: 01/03/2022 abdomen FINDINGS: There is prominent gaseous distention of small bowel and colon to the level of the sigmoid area, with multiple small and large bowel air-fluid levels. NG tube is been removed since 01/03/2022. No apparent intraperitoneal free air. IMPRESSION: Sigmoid colon obstruction Reviewed, dictated and finalized at Location A. Reviewed, dictated and finalized at location B. IMPRESSION: Sigmoid colon obstruction
[2021-12-29 21:06] VITALS: BP 122/82; PULSE 129; RESP 16; TEMP 36.3; O2SAT 96
[2021-12-29 22:15] LABS: Basophils Percent Auto 0.3 % (0.2-1.2); Eosinophils Absolute Auto 0.1 K/mm3 (0-0.3); Eosinophils Percent Auto 1.1 % (0-4.4); Hematocrit 45.2 % (42.0-52.0); Immature Granulocyte Absolute 0.05 K/mm3 (0.00-0.031); Immature Granulocyte Percent A 0.4 % (0-0.5); Lymphocytes Absolute Auto 1.84 K/mm3 (0.9-3.2); Lymphocytes Percent Auto 14.8 % (18.3-44.2); Mean Corpuscular HGB Conc 33.2 g/dl (32-36); Mean Corpuscular Hemoglobin 30.2 pg (26-34); Mean Corpuscular Volume 90.9 fl (80-100); Mean Platelet Volume 9.3 fl (7.4-10.4); Monocytes Absolute Auto 1.1 K/mm3 (0.1-0.6); Neutrophils Absolute Auto 9.2 K/mm3 (1.3-6.7); Neutrophils Percent Auto 74.4 % (45.5-73.1); Platelet Count Result 405 k/mm3 (150-375); Red Blood Count 4.97 M/mm3 (4.6-6.20); Red Cell Distribution Width 14.2 % (11.5-14.5); White Blood Count 12.4 K/mm3 (4.5-10.0)
[2021-12-29 22:25] LABS: Alanine Aminotransferase 22 U/L (4-50); Albumin Level 4.4 g/dL (3.5-5.1); Alkaline Phosphatase 112 U/L (38-126); Anion Gap 12 mmol/L (8-16); Aspartate Amino Transferase 29 U/L (17-59); Bilirubin,Total 0.7 mg/dL (0.2-1.3); Blood Urea Nitrogen 16 mg/dL (9-20); Calcium 9.2 mg/dL (8.4-10.2); Carbon Dioxide 24 mmol/L (22-30); Chloride 99 mmol/L (98-107); Estimated CRCL calculation 121 ml/min; Estimated Glomerular Filt Rate > 60; Glucose 107 mg/dL (65-110); Lipase 42 U/L (23-300); Potassium 4.2 mmol/L (3.4-5.0); Sodium 135 mmol/L (137-145)
[2021-12-29] MEDS: ONDANSETRON INJ 4 MG/2 ML VIAL IV PUSH (23:25)
[2021-12-29] MEDS: SODIUM CHLORIDE 0.9% IV 1,000 ML 999 ML IV CONT (23:25)
[2021-12-29] MEDS: FAMOTIDINE 20 MG/2 ML VIAL IV PUSH (23:25)
[2021-12-29] MEDS: MORPHINE SULFATE (*CRX) 4 MG/ML INJ 2 MG IV PUSH (23:26)
--- NOTE | 2021-12-29 23:31 | PC.NURSE ---
pt provided urinal aware of need for urine. pt provided a blanket
[2021-12-29 23:32] VITALS: BP 132/92; PULSE 108; RESP 20; O2SAT 94
[2021-12-29 23:43] VITALS: O2SAT 95
[2021-12-29 23:45] VITALS: O2SAT 93
[2021-12-29 23:46] VITALS: BP 139/99; PULSE 102; RESP 20; O2SAT 92
[2021-12-29 23:47] VITALS: O2SAT 93
[2021-12-30] VITALS (19 sets, daily range): BP systolic 128–159; BP diastolic 80–125; PULSE 86–93; RESP 14–20; TEMP 36.4–36.9; O2SAT 91–97; BMI 38.5
[2021-12-30 01:36] LABS: Appearance Urine Clear (Clear); Bilirubin Urine 1+ (Negative); Blood Urine Negative (Negative); Glucose Urine UA Negative (Negative); Ketones Urine Trace mg/dL (Negative); Leukocyte Esterase Ur Negative LEU/UL (Negative); Nitrate Urine Negative (Negative); Protein Urine 1+ mg/dL (Negative); Specific Grav Ur 1.015 (1.001-1.035); Urobilinogen Urine 0.2 mg/dL (<2.0)
[2021-12-30 01:42] LABS: Add Urine Microscopic? YES; Color Urine Dark Yellow (Yellow)
[2021-12-30 02:01] LABS: Bacteria Urine Trace /hpf; Mucus Urine Rare /lpf; WBC Urine 0-3 /hpf
--- NOTE | 2021-12-30 02:32 | ED.ABDPAIN ---
HPI - Abdominal Pain General Chief Complaint: Abdominal Pain Stated Complaint: sbo last week same symptoms Time Seen by Provider: 12/29/21 22:58 Source: patient Mode of arrival: ambulatory History of Present Illness HPI narrative: 46-year-old male with history of colon stricture presents today with complaints of lower abdominal pain that he has had since . Patient recently discharged from here for a bowel obstruction. Patient plan follow-up with Dr. Tirado but has not had that yet. Patient started with abdominal pain on , saw his primary on Wednesday, and seemed to get worse since then per his . Patient states the pain is similar to when he was admitted the last time. Patient does admit to nausea but denies vomiting at this time, patient denies diarrhea. Related Data Allergies Allergy/AdvReac Type Severity Reaction Status Date / Time Penicillins Allergy Unknown unknown Verified 12/26/21 10:22 Review of Systems Review of Systems: CONSTITUTIONAL: Denies fever, chills, or sweats. EYES: Denies visual changes, redness, or discharge. ENT: Denies rhinorrhea, congestion, sore throat, or otalgia. CARDIOVASCULAR: Denies chest pain, palpitations, or edema. RESPIRATORY: Denies cough or dyspnea. GASTROINTESTINAL: Abdominal pain, nausea, denies vomiting, or diarrhea. GENITOURINARY: Denies dysuria or hematuria. SKIN: Denies rash or itching. MUSCULOSKELETAL: Denies back pain, joint pain, or myalgia. NEUROLOGIC: Denies headache, numbness, dizziness, or weakness. PSYCHIATRIC: Denies anxiety or depression. [facility] Surgical History Surgical History History of ear surgery Family History Family History Mother Diabetes mellitus Family history of elevated blood lipids Depression Family history of malignant neoplasm of breast in first degree relative Family history of type 2 diabetes mellitus Father Hypertension Family history of elevated blood lipids Other Family history of cardiovascular disease Family history of malignant neoplasm Social History Social History Smoking packs per day: 2 Smoking cigarettes per day: 40.0 Years smoked: 20 Smoking pack-years: 40.00 Tobacco type: cigarettes Second hand tobacco smoke exposure: Yes Alcohol intake: never Substance use: never Spiritual care concerns: No Exam Narrative: GENERAL: Well-appearing, well-nourished, and in moderate distress. HEAD: Normocephalic, atraumatic. EYES: PERRLA and EOMI. ENT: Nares clear, no rhinorrhea or epistaxis. Mucous membranes moist. NECK: Supple. No adenopathy or masses. No carotid bruits or JVD CHEST: Clear to auscultation. No respiratory distress. No wheezes rales or rhonchi HEART: Regular rate and rhythm. No murmur heard. Normal peripheral pulses. ABDOMEN: Soft, nontender, minimally distended, normal active bowel sounds. EXTREMITIES: Normal range of motion. No edema. SKIN: Warm, dry, no rash. NEURO: No focal deficits. Alert and oriented x3. PSYCH: Normal mood and affect. Course Consultations Consultation #1: Surgery consulted. Aware of patient's previous admission for bowel obstruction. CT reviewed with them. Plan admission with surgery for consult. IV antibiotics, NG tube, and pain medicine Date: 12/30/21 Time: 02:20 Vital Signs Vital signs: Vital Signs Temperature 36.3 C L 12/29/21 21:06 Pulse Rate 129 H 12/29/21 21:06 Respiratory Rate 16 12/29/21 21:06 Blood Pressure 122/82 12/29/21 21:06 Pulse Oximetry 96 12/29/21 21:06 Temperature 36.3 C L 12/29/21 21:06 Pulse Rate 91 12/30/21 01:46 Respiratory Rate 20 12/30/21 01:46 Blood Pressure 136/94 H 12/30/21 01:46 Pulse Oximetry 93 12/30/21 01:46 MDM - Abdominal Pain MDM Narrative Medical decision making narrative: HPI as noted. WBC is 12.4, hemoglobin 15,
--- NOTE | 2021-12-30 02:43 | PC.NURSE ---
PTs meds verified Flagyl and Levoflaxin compatible through [facility].
[2021-12-30] MEDS: metroNIDAZOLE 500 MG/ISO 100ML 500 MG/100 ML BAG 100 MG IVPB ×4 (02:44→21:25)
--- NOTE | 2021-12-30 02:45 | PC.NURSE ---
Respiratory called order for CPAP. PT has NG tube at this time unable to do CPAP.
--- NOTE | 2021-12-30 02:51 | PCRCNOTE ---
RT can not place pt on CPAP at this time due to NG tube being in place.
[2021-12-30] MEDS: PROMETHAZINE HCL 25 MG/ML AMPUL 12.5 MG IV PUSH (03:03)
--- NOTE | 2021-12-30 03:42 | ADMGEN ---
This patient, Rod Fishman, was admitted to Medical Room 252-01. Patient/family oriented to hospital policies and general routines including ID bracelet, bed and alarms, visiting hours, pain management, procedures, bathroom and other care routines, personal items, smoking policy, room service/diet, and visiting hours. Information on how to activate the Rapid Response Team has been discussed. Patient/Family are encouraged to report perceived risks to care and to ask questions if they do not understand what they are told or what they should do.
[2021-12-30] MEDS: SODIUM CHLORIDE 0.9% IV 1,000 ML 125 ML IV CONT ×2 (03:51→14:50)
--- NOTE | 2021-12-30 07:34 | PM.IMHP ---
H&P: HPI History of Present Illness Date/Time: 12/30/21 07:34 46-year-old male smoker with history of diverticulitis, and recent hospitalization from 12/14 to 12/17at this hospital for diverticulitis and sigmoid colon stricture with accompanying bowel obstruction, who presents with 5 days of worsening abdominal pain, nausea, and frequent small loose stools. Upon presenting to the ER, he had leukocytosis at 12.4, CT of abdomen pelvis showing stable irregular wall thickening of the sigmoid colon with stricture, micro perforation, and proximal obstruction, has history of chronic diverticulitis versus malignancy. Surgery was consulted and an NG tube was placed. Patient is tolerating this. 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 or equal to 70 in adult History of diverticulitis of colon Obstructive sleep apnea Tobacco abuse Varicose veins of bilateral lower extremities with other complications Surgical History Surgical History History of ear surgery Family History Family History Mother Diabetes mellitus Family history of elevated blood lipids Depression Family history of malignant neoplasm of breast in first degree relative Family history of type 2 diabetes mellitus Father Hypertension Family history of elevated blood lipids Other Family history of cardiovascular disease Family history of malignant neoplasm Social History Social History Smoking packs per day: 2 Smoking cigarettes per day: 40.0 Years smoked: 20 Smoking pack-years: 40.00 Smoking status: Current every day smoker Tobacco type: cigarettes Second hand tobacco smoke exposure: Yes Additional smoking assessment comments: Over the past few weeks he has decreased to 5 cigarettes per day Alcohol intake: never Substance use: never Substance use type: does not use Living arrangements: with family Occupation/Education: occupation Gender identity (if verbalized by the patient): Male Spiritual care concerns: No Meds Home Medications and Allergies Home Medications Medication Instructions Recorded Confirmed Type pantoprazole 40 mg PO Q12HR #60 tablet 12/17/21 12/30/21 Rx Allergies Allergy/AdvReac Type Severity Reaction Status Date / Time Penicillins Allergy Unknown unknown Verified 12/26/21 10:22 Vital Signs Vital Signs - 24 hr 12/29/21 21:06 12/29/21 23:32 12/29/21 23:43 Temperature 97.4 F L Pulse Rate 129 H 108 H Respiratory Rate 16 20 Blood Pressure 122/82 132/92 H Pulse Oximetry 96 94 95 12/29/21 23:45 12/29/21 23:46 12/29/21 23:47 Temperature Pulse Rate 102 H Respiratory Rate 20 Blood Pressure 139/99 H Pulse Oximetry 93 92 93 12/30/21 00:42 12/30/21 00:43 12/30/21 00:45 Temperature Pulse Rate Respiratory Rate Blood Pressure 128/85 Pulse Oximetry 93 96 93 12/30/21 00:46 12/30/21 01:00 12/30/21 01:01 Temperature Pulse Rate Respiratory Rate Blood Pressure 134/92 H 135/91 H Pulse Oximetry 93 92 93 12/30/21 01:16 12/30/21 01:32 12/30/21 01:45 Temperature Pulse Rate Respiratory Rate Blood Pressure 159/125 H Pulse Oximetry 97 95 12/30/21 01:46 12/30/21 03:01 12/30/21 03:02 Temperature Pulse Rate 91 86 Respiratory Rate 20 20 Blood Pressure 136/94 H 139/96 H Pulse Oximetry 93 91 92 12/30/21 03:30 12/30/21 03:48 12/30/21 05:38 Temperature 97.6 F 97.7 F Pulse Rate 93 87 90 Respiratory Rate
[2021-12-30 08:23] LABS: Basophils Percent Auto 0.5 % (0.2-1.2); Eosinophils Absolute Auto 0.2 K/mm3 (0-0.3); Eosinophils Percent Auto 2.2 % (0-4.4); Hematocrit 40.9 % (42.0-52.0); Hemoglobin 13.1 g/dL (14.0-18.0); Immature Granulocyte Absolute 0.03 K/mm3 (0.00-0.031); Immature Granulocyte Percent A 0.4 % (0-0.5); Lymphocytes Percent Auto 24.5 % (18.3-44.2); Mean Corpuscular Hemoglobin 29.9 pg (26-34); Mean Corpuscular Volume 93.4 fl (80-100); Mean Platelet Volume 9.9 fl (7.4-10.4); Monocytes Absolute Auto 0.9 K/mm3 (0.1-0.6); Monocytes Percent Auto 12.4 % (2.6-8.5); Neutrophils Absolute Auto 4.4 K/mm3 (1.3-6.7); Platelet Count Result 332 k/mm3 (150-375); Red Blood Count 4.38 M/mm3 (4.6-6.20); Red Cell Distribution Width 14.3 % (11.5-14.5); White Blood Count 7.4 K/mm3 (4.5-10.0)
[2021-12-30 08:42] LABS: Alanine Aminotransferase 17 U/L (4-50); Albumin Level 3.4 g/dL (3.5-5.1); Alkaline Phosphatase 84 U/L (38-126); Anion Gap 7 mmol/L (8-16); Aspartate Amino Transferase 25 U/L (17-59); Bilirubin,Total 0.5 mg/dL (0.2-1.3); Blood Urea Nitrogen 16 mg/dL (9-20); Calcium 8.2 mg/dL (8.4-10.2); Carbon Dioxide 27 mmol/L (22-30); Chloride 101 mmol/L (98-107); Estimated CRCL calculation 149 ml/min; Estimated Glomerular Filt Rate > 60; Glucose 79 mg/dL (65-110); Potassium 3.7 mmol/L (3.4-5.0); Sodium 135 mmol/L (137-145)
[2021-12-30 09:02] LABS: Procalcitonin 0.1 ng/mL
--- NOTE | 2021-12-30 10:01 | PM.CNGS ---
Assessment and Plan Assessment and plan (1) Stricture of sigmoid colon: Code(s): K56.699 - Other intestinal obstruction unspecified as to partial versus complete obstruction Status: Chronic Assessment and Plan: Chronic sigmoid stricture with the most recent Hypaque enema about 2 weeks ago showing an 8-10 cm segment of narrowing in the sigmoid colon with the lumen opening only a few millimeters. We feel this is more likely a diverticular stricture rather than a malignancy. He had a colonoscopy in October of 2017 that showed inflammation with stricturing of the mid sigmoid colon but no tumor. This is causing at least a partial obstruction, but he is having some bowel function. Our plan was to have GI try to scope him as an outpatient for possible ballooning or stent placement, but he has presented back to the hospital with obstructive symptoms prior to being able to set this up. Now with concerns of microperforation on the CT scan, this may be too high risk. He will eventually need surgical resection of this stricture, but we were trying to decrease inflammation to hopefully allow him to be prepped for surgery to give him the best chance for a one-step operation. Dr. Tirado will review the CT scan and may speak with GI regarding the patient's case. Further plan pending. (2) Bowel obstruction: Qualifiers: Intestinal obstruction extent: unspecified extent Intestinal obstruction type: unspecified Qualified Code(s): K56.609 - Unspecified intestinal obstruction, unspecified as to partial versus complete obstruction Code(s): K56.609 - Unspecified intestinal obstruction, unspecified as to partial versus complete obstruction Status: Acute Assessment and Plan: Patient having obstructive symptoms, which is what brought his back to the ER. This is secondary to the sigmoid stricture. He is having some bowel function with 5-6 loose stools daily, but no passing much gas. Will continue NG tube decompression, NPO status, and IV fluids for now. See plan above. (3) Diverticulitis: Code(s): K57.92 - Diverticulitis of intestine, part unspecified, without perforation or abscess without bleeding Status: Acute Assessment and Plan: Sigmoid diverticulitis with a stricture and now with a few extraluminal air bubbles concerning for microperforation on the most recent CT. Would recommend to continue with IV Levaquin/Flagyl, bowel rest, and NG tube decompression. See plan above. (4) Obstructive sleep apnea: Code(s): G47.33 - Obstructive sleep apnea (adult) (pediatric) Status: Chronic Assessment and Plan: Continue CPAP use while inpatient. (5) Tobacco abuse: Code(s): Z72.0 - Tobacco use Status: Chronic Assessment and Plan: Encouraged cessation, which was discussed on his last hospitalization. He is still smoking but states since his discharge he has decreased his cigarette use to 5 cigarettes per day from typically having 2 PPD. Discussed the reasons for cessation and how this can increase his risks for surgery. (6) Obesity (BMI 30-39.9): Code(s): E66.9 - Obesity, unspecified Status: Chronic Assessment and Plan: Encourage diet and lifestyle modifications for continued weight loss. BMI less than last admission, he does feel like he has lost some weight and has not been eating much at home due to obstructive symptoms. See plan above. Additional Plan I have discussed the patient's case and plan of care with Dr. Tirado. Thank you for allowing us to see the patient in consultation and we will continue to follow along with you. History of Present Illness Consult details Consult date: 12/30/21 Reason for consult: other (Diverticulitis with sigmoid stricture and at least partial obstruction, possible microperforation) Requesting physician: Rebekah Gomez, LABORATORY CLERK Narrative: This is a 46-year-old obese male who is known to our service for a recen
[2021-12-30] MEDS: polyethylene glycoL 3350 17 GM POWD.PACK FEED TUBE (14:51)
[2021-12-30] MEDS: FAMOTIDINE 20 MG/2 ML VIAL IV PUSH (21:25)
[2021-12-31] MEDS: metroNIDAZOLE 500 MG/ISO 100ML 500 MG/100 ML BAG 100 MG IVPB ×4 (02:31→20:59)
[2021-12-31] MEDS: SODIUM CHLORIDE 0.9% IV 1,000 ML 125 ML IV CONT ×3 (02:40→21:00)
[2021-12-31 05:16] VITALS: BP 141/96; PULSE 91; RESP 14; TEMP 36.7; O2SAT 97
[2021-12-31 06:28] LABS: Basophils Percent Auto 0.5 % (0.2-1.2); Eosinophils Absolute Auto 0.1 K/mm3 (0-0.3); Eosinophils Percent Auto 1.8 % (0-4.4); Hematocrit 41.3 % (42.0-52.0); Hemoglobin 13.4 g/dL (14.0-18.0); Immature Granulocyte Absolute 0.02 K/mm3 (0.00-0.031); Immature Granulocyte Percent A 0.3 % (0-0.5); Lymphocytes Absolute Auto 1.53 K/mm3 (0.9-3.2); Lymphocytes Percent Auto 19.6 % (18.3-44.2); Mean Corpuscular HGB Conc 32.4 g/dl (32-36); Mean Corpuscular Hemoglobin 30.2 pg (26-34); Mean Corpuscular Volume 93.2 fl (80-100); Mean Platelet Volume 9.9 fl (7.4-10.4); Monocytes Absolute Auto 0.9 K/mm3 (0.1-0.6); Monocytes Percent Auto 11.8 % (2.6-8.5); Neutrophils Absolute Auto 5.2 K/mm3 (1.3-6.7); Platelet Count Result 321 k/mm3 (150-375); Red Blood Count 4.43 M/mm3 (4.6-6.20); Red Cell Distribution Width 14.1 % (11.5-14.5); White Blood Count 7.8 K/mm3 (4.5-10.0)
[2021-12-31 06:45] LABS: Alanine Aminotransferase 19 U/L (4-50); Albumin Level 3.5 g/dL (3.5-5.1); Alkaline Phosphatase 92 U/L (38-126); Anion Gap 8 mmol/L (8-16); Aspartate Amino Transferase 25 U/L (17-59); Bilirubin,Total 0.7 mg/dL (0.2-1.3); Blood Urea Nitrogen 13 mg/dL (9-20); Calcium 8.2 mg/dL (8.4-10.2); Carbon Dioxide 29 mmol/L (22-30); Chloride 99 mmol/L (98-107); Estimated CRCL calculation 134 ml/min; Estimated Glomerular Filt Rate > 60; Glucose 77 mg/dL (65-110); Potassium 3.5 mmol/L (3.4-5.0); Sodium 136 mmol/L (137-145)
[2021-12-31 08:00] VITALS: RESP 16; O2SAT 97
[2021-12-31] MEDS: FAMOTIDINE 20 MG/2 ML VIAL IV PUSH ×2 (09:01→20:59)
--- NOTE | 2021-12-31 11:31 | PM.IMPN ---
Progress Note: A&P Assessment and Plan (1) Bowel obstruction: Qualifiers: Intestinal obstruction extent: unspecified extent Intestinal obstruction type: unspecified Qualified Code(s): K56.609 - Unspecified intestinal obstruction, unspecified as to partial versus complete obstruction Code(s): K56.609 - Unspecified intestinal obstruction, unspecified as to partial versus complete obstruction Status: Acute Assessment and Plan: CT abdomen pelvis showing narrowing of the sigmoid colon with proximal extension suspicious for colonic obstruction. Pericolic stranding is noted compatible with inflammation. Findings may reflect inflammatory or malignant stricture. Diverticulitis not excluded. Vital signs stable. Surgery plans to optimize patient via NG tube and proceed with possible excision of the sigmoid stricture. Patient is having frequent small loose stools, but not passing much gas. Surgery has been consulted and desired to have colonoscopy outpatient for possible ballooning or stent the sigmoid stricture, however presenting back to the hospital with microperforation on CT scan, this may be too high risk. They advised he will need eventual surgical resection of the stricture but they are trying to decrease inflammation with the goal to plan for a one-step operation. Further planning is pending, following his NG tube progress. NG tube is in place NPO Levaquin and Flagyl started empirically with microperforation. Pain & nausea control Pepcid IV (2) Obesity (BMI 30-39.9): Code(s): E66.9 - Obesity, unspecified Status: Chronic Assessment and Plan: Will discuss weight loss, healthy diet and exercise with patient. During prior admission patient was advised to began weight loss regimen. (3) History of diverticulitis of colon: Code(s): Z87.19 - Personal history of other diseases of the digestive system Status: Chronic Assessment and Plan: CT cannot exclude. Plan as above<del>.</del> (4) Obstructive sleep apnea: Code(s): G47.33 - Obstructive sleep apnea (adult) (pediatric) Status: Chronic Assessment and Plan: Will defer CPAP with concurrent NG tube placement Subjective Date/time seen: 12/31/21 11:31 Interval history: 46-year-old male smoker with history of diverticulitis admitted for bowel obstruction. Pt is doing okay, NG tube in place. Has 5/10 pain across the suprapubic area. Some nausea, no vomiting. No cp/sob. Review of Systems Review of Systems: All systems reviewed & are unremarkable except as noted in HPI and below Exam Narrative: General: No acute distress, non toxic appearing, obese Eyes: PERRL, no scleral icterus HEENT: NCAT, external ears normal, MMM Respiratory: No respiratory distress, Lungs CTA bilaterally, no wheezing Cardiovascular: RRR, no murmur Abdominal: Soft, mild lower abdominal ttp, non distended, no rebound or guarding Musculoskeletal: Moves all 4 extremities, no edema Neurological: A/Ox3, speech clear, no facial asymmetry Skin: Warm, dry, no rashes Psychiatric: Normal affect, normal mood Objective Data Vital Signs Vital Signs: Vital Signs - 24 hr 12/30/21 14:12 12/30/21 20:00 12/30/21 21:32 Temperature 98.4 F 97.9 F Pulse Rate 92 92 92 Respiratory Rate 14 17 Blood Pressure 136/85 152/84 H Pulse Oximetry 96 96 95 12/30/21 23:10 12/31/21 05:16 12/31/21 08:00 Temperature 98.1 F Pulse Rate 91 Respiratory Rate 14 16 Blood Pressure 141/96 H Pulse Oximetry 95 97 97 Intake/Output Intake/Output: Intake & Output 12/28/21 12/29/21 12/30/21 12/31/21 23:59 23:59 23:59 23:59 Intake Total 3400 200 Output Total 1100 1200 Balance 2300 -1000 Meds/Results Medications: Active Medications Generic Name Dose Route Start Last Admin Trade Name Freq PRN Reason Stop Dose Admin Famotidine 20 mg 12/30/21 21:00 12/31/21 09:01 Famotidine 20 Mg/2
--- NOTE | 2021-12-31 11:47 | PM.PNGS ---
Progress Note: A&P Assessment and Plan (1) Stricture of sigmoid colon: Onset Date: Unknown Code(s): K56.699 - Other intestinal obstruction unspecified as to partial versus complete obstruction Status: Chronic Assessment and Plan: Patient is still having stools so some fluid /stool is getting past the area of stricture. His pain is resolving but by plain films today he still has some distention of the transverse colon and still some occasional cramping across the mid abdomen. Therefore, today I had a long discussion with the patient regarding the need for surgical intervention and that it is highly likely that if we can't get him cleaned out prior to the surgery that he will end up with an ostomy. He knows that we will get the ostomy nurses to esther the appropriate area for an ostomy and we will continue to gradually try to slowly cleanse the bowel with periodic doses of MiraLax through the NG tube over the next several days. I have also put in a consultation for Dr. Christine from GI. He will review the patient's imaging and consider a flexible sigmoidoscopy to evaluate the rectum and the beginning of the narrowed area just above the rectosigmoid junction. If at all possible he will review it to be sure there is not signs of colon tumor and also evaluate for the possibility of balloon dilation but in view of a fairly long segment stricture indicated by the patient's previous barium/ Gastrografin studies he feels it is unlikely this will be successful. (2) Diverticulitis: Onset Date: ~11/2021 Code(s): K57.92 - Diverticulitis of intestine, part unspecified, without perforation or abscess without bleeding Status: Acute Assessment and Plan: Patient has some element of chronic or acute inflammation in the area of the sigmoid just above the rectosigmoid junction by CT. We are continuing the IV antibiotics to cover for infection is possible micro perforation in the area. (3) Tobacco abuse: Code(s): Z72.0 - Tobacco use Status: Chronic (4) Obstructive sleep apnea: Code(s): G47.33 - Obstructive sleep apnea (adult) (pediatric) Status: Chronic Subjective Subjective Date/Time Seen: 12/31/21 11:47 Patient reports: feels better and flatus Interval history: The patient had several liquid stools yesterday. Has had none since midnight now however. He is passing some flatus. His abdominal pain is pretty much resolved at this time. He is asking for ice chips but I offered Cepacol lozenges. Review of Systems Review of Systems: All systems reviewed & are unremarkable except as noted in HPI and below Constitutional: Constitutional: Reports as per HPI, Denies chills and Denies fever(s) Cardiovascular: Cardiovascular: Denies chest pain and Denies dyspnea Respiratory: Respiratory: Reports no additional respiratory complaints and Denies dyspnea Gastrointestinal: Gastrointestinal: Reports as per HPI, Denies bloating, Reports nausea ( Occasional very mild) and Denies vomiting Comments: Patient states the abdominal discomfort that he was having the lower abdomen is pretty much gone today. Musculoskeletal: Musculoskeletal: Reports no additional musculoskeletal complaints Neurologic: Denies memory loss Psychiatric: Psychiatric: Denies anxiety and Denies memory loss Exam Const: General: cooperative, comfortable, alert and awake Orientation/consciousness: patient oriented x3 HENMT: Head: normal to inspection Mouth: Yes moist mucous membranes Eyes: Sclera: sclerae normal Pupils: Equal, round and reactive pupils present Neck: Neck: normal visual inspection and no JVD Chest: Chest palpation & inspection: normal inspection of the chest Resp: Effort & Inspection: normal respiratory effort Auscultation: clear to auscultation bilaterally Cardio: Jugular venous distension: no JVD Rate: regular rate GI: Inspection: non-distended and obesity GI Palp: No abdominal ten
[2021-12-31] MEDS: BENZOCAINE/MENTHOL (*BKC) 18 EA LOZENGE 1 LOZENGE PO (13:16)
[2021-12-31] MEDS: polyethylene glycoL 3350 17 GM POWD.PACK FEED TUBE (13:16)
--- NOTE | 2021-12-31 14:26 | PCCCNOTE ---
On 12/31/21, the student, [Esmer Cruz ], provided care and completed [employer] [facility]. I have reviewed the student's documentation and agree with the findings.
[2021-12-31 15:30] VITALS: BP 122/66; PULSE 91; RESP 18; TEMP 36.6; O2SAT 94
--- NOTE | 2021-12-31 16:24 | WPDGICN ---
Assessment and Plan Assessment and plan (1) Stricture of sigmoid colon: Onset Date: Unknown Code(s): K56.699 - Other intestinal obstruction unspecified as to partial versus complete obstruction Status: Chronic Assessment and Plan: I discussed case with Dr Tirado and he would like to get sigmoidoscopy tomorrow to assess site and rule out malignancy, will get biopsies based on findings. This also could be just complication from chronic diverticulitis over last few years, if that is the case then will eventually need surgery because recurrent bowel stricture. NGT in place, will give miralax prep as tolerated and sigmoidoscopy tomorrow patient eventually will need full colonoscopy several months after his surgery (2) Bowel obstruction: Qualifiers: Intestinal obstruction extent: unspecified extent Intestinal obstruction type: unspecified Qualified Code(s): K56.609 - Unspecified intestinal obstruction, unspecified as to partial versus complete obstruction Code(s): K56.609 - Unspecified intestinal obstruction, unspecified as to partial versus complete obstruction Status: Acute Assessment and Plan: with sigmoid stricture flex-sigm tomorrow surgery on board (3) Diverticulitis: Onset Date: ~11/2021 Code(s): K57.92 - Diverticulitis of intestine, part unspecified, without perforation or abscess without bleeding Status: Acute Assessment and Plan: treated with antibiotics (4) 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 with body mass index (BMI) greater than or equal to 70 in adult: Code(s): E66.2 - Morbid (severe) obesity with alveolar hypoventilation; Z68.45 - Body mass index [BMI] 70 or greater, adult Status: Chronic (5) Obstructive sleep apnea: Code(s): G47.33 - Obstructive sleep apnea (adult) (pediatric) Status: Chronic GI Consult Note Consult date/time: 12/31/21 16:24 HPI: Rod Fishman is a 46 year old male with recent hospitalization with acute diverticulitis and a sigmoid stricture with partial obstruction evaluated by surgery but only required medical treatment with IV antibiotics and NG tube decompression with bowel rest. He had a Hypaque enema that showed a severely strictured 8-10 cm length of sigmoid colon with only a few mm opening of the lumen. Last few days ago with worsening lower abdominal pain, nausea, bloating and frequent small loose stools. ER evaluation revealed leukocytosis at 12.[address] scan reviewed and showed stable irregular wall thickening of sigmoid colon with stricture, microperforation, and proximal obstruction, consistent with chronic diverticulitis versus malignancy. He had attempt colonoscopy 2018 but unable to pass stricture in sigmoid (he had previous CT scan that revealed sigmoid stricture) but never follow-up with surgery until now. Review of Systems Constitutional: Constitutional: Denies chills Eyes: Eyes: Denies blurry vision ENT: Reports Normal hearing present Cardiovascular: Cardiovascular: Denies chest pain Respiratory: Respiratory: Denies dyspnea Gastrointestinal: Gastrointestinal: Reports abdominal pain and Reports nausea Genitourinary: Genitourinary: Denies dysuria Musculoskeletal: Musculoskeletal: Denies neck pain Integumentary/Breasts: Skin/Breast: Denies dry skin Neurologic: Denies headache(s) Psychiatric: Psychiatric: Denies anxiety [facility] Past Medical History Medical History (Updated 12/31/21 @ 12:00 by Loki Tirado MD) Abnormal colonoscopy acute diverticulitis in 2018 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
[2021-12-31] MEDS: PROMETHAZINE HCL 25 MG/ML AMPUL 12.5 MG IV PUSH (17:38)
[2021-12-31] MEDS: polyethylene glycoL 3350 238 GM BOTTLE PO (17:38)
[2021-12-31] MEDS: NICOTINE (*PBKC) 21 MG PATCH 1 PATCH TRANSDERM (18:48)
[2021-12-31 21:41] VITALS: BP 167/98; PULSE 99; RESP 14; TEMP 37; O2SAT 93
[2022-01-01] VITALS (10 sets, daily range): BP systolic 130–153; BP diastolic 73–96; PULSE 88–99; RESP 16–22; TEMP 35.8–36.7; O2SAT 94–97
--- NOTE | 2022-01-01 00:48 | PC.NURSE ---
Addendum entered by Deepika Brown RN 01/01/22 01:13: Dr. Hermilo Yanez is informed of situation and states that pt does not need to be hooked back up to suction and that pump can be stopped at this time. Pt is informed. Pump is stopped. Original Note: Pt was given miralax on prior shift, this was mixed with 300 ml water and programmed to flush with 150 ml of water, according to prior nurse. This is stopped around 2200 d/t pt intolerance. S/S of belching, hiccups and some intermittent nausea. Pt is not improved by 0030 so nurse discharge planner is contacted on next appropriate steps. Kangaroo pump is restarted at 0050, at 50 ml/ to gauge pt tolerance for the next few hours.
[2022-01-01] MEDS: metroNIDAZOLE 500 MG/ISO 100ML 500 MG/100 ML BAG 100 MG IVPB ×4 (04:15→20:41)
[2022-01-01 06:16] LABS: Basophils Percent Auto 0.4 % (0.2-1.2); Eosinophils Absolute Auto 0.1 K/mm3 (0-0.3); Eosinophils Percent Auto 0.8 % (0-4.4); Hematocrit 45.7 % (42.0-52.0); Hemoglobin 14.7 g/dL (14.0-18.0); Immature Granulocyte Absolute 0.03 K/mm3 (0.00-0.031); Immature Granulocyte Percent A 0.3 % (0-0.5); Lymphocytes Absolute Auto 1.24 K/mm3 (0.9-3.2); Lymphocytes Percent Auto 13.9 % (18.3-44.2); Mean Corpuscular HGB Conc 32.2 g/dl (32-36); Mean Corpuscular Hemoglobin 29.8 pg (26-34); Mean Corpuscular Volume 92.5 fl (80-100); Mean Platelet Volume 9.6 fl (7.4-10.4); Monocytes Absolute Auto 0.9 K/mm3 (0.1-0.6); Monocytes Percent Auto 9.9 % (2.6-8.5); Neutrophils Absolute Auto 6.7 K/mm3 (1.3-6.7); Neutrophils Percent Auto 74.7 % (45.5-73.1); Platelet Count Result 331 k/mm3 (150-375); Red Blood Count 4.94 M/mm3 (4.6-6.20); White Blood Count 8.9 K/mm3 (4.5-10.0)
[2022-01-01 06:27] LABS: Alanine Aminotransferase 21 U/L (4-50); Albumin Level 4.1 g/dL (3.5-5.1); Alkaline Phosphatase 111 U/L (38-126); Anion Gap 13 mmol/L (8-16); Aspartate Amino Transferase 25 U/L (17-59); Blood Urea Nitrogen 13 mg/dL (9-20); Calcium 8.8 mg/dL (8.4-10.2); Carbon Dioxide 23 mmol/L (22-30); Chloride 98 mmol/L (98-107); Estimated CRCL calculation 149 ml/min; Estimated Glomerular Filt Rate > 60; Glucose 98 mg/dL (65-110); Potassium 4.5 mmol/L (3.4-5.0); Sodium 134 mmol/L (137-145)
[2022-01-01] MEDS: SODIUM CHLORIDE 0.9% IV 1,000 ML 125 ML IV CONT ×2 (08:18→20:43)
[2022-01-01] MEDS: FAMOTIDINE 20 MG/2 ML VIAL IV PUSH ×2 (08:35→20:41)
--- NOTE | 2022-01-01 11:54 | PC.NURSE ---
To GI Lab per SHARON jamison Right Hand. Report given to Fauzia BARNEY.
--- NOTE | 2022-01-01 12:00 | WPDANESEPPF ---
Anes - Initial Pre Proc Eval Procedure: Operation Date: 01/01/22 13:00 Proposed Procedures p Flexible Sigmoidoscopy - Yahir Sanderson MD Date/Time: 01/01/22 12:00 Surgeon: Erin Espinosa PA-C Pre Op Diagnosis: bowel obstruction Patient Data Age: 46 Gender: M Height: 1.88 m Weight: 136.3 kg Last Vital Signs Temp 36.6 C 01/01/22 06:00 Pulse 97 01/01/22 06:00 Resp 16 01/01/22 06:00 BP 134/95 H 01/01/22 06:00 Pulse Ox 95 01/01/22 08:53 Allergies Allergy/AdvReac Type Severity Reaction Status Date / Time Penicillins Allergy Unknown unknown Verified 12/26/21 10:22 Home Medications Medication Instructions Recorded Confirmed Type pantoprazole 40 mg PO Q12HR #60 tablet 12/17/21 12/30/21 Rx Laboratory Tests 01/01/22 01/01/22 06:00 06:00 WBC 8.9 K/mm3 K/mm3 (4.5-10.0) RBC 4.94 M/mm3 M/mm3 (4.6-6.20) Hgb 14.7 g/dL g/dL (14.0-18.0) Hct 45.7 % % (42.0-52.0) MCV 92.5 fl fl (80-100) MCH 29.8 pg pg (26-34) MCHC 32.2 g/dl g/dl (32-36) RDW 14.0 % % (11.5-14.5) Plt Count 331 k/mm3 k/mm3 (150-375) MPV 9.6 fl fl (7.4-10.4) Immature Gran % (Auto) 0.3 % % (0-0.5) Neut % (Auto) 74.7 % H % (45.5-73.1) Lymph % (Auto) 13.9 % L % (18.3-44.2) [place] % (Auto) 9.9 % H % (2.6-8.5) Eos % (Auto) 0.8 % % (0-4.4) Baso % (Auto) 0.4 % % (0.2-1.2) Lymph # (Auto) 1.24 K/mm3 K/mm3 (0.9-3.2) [place] # (Auto) 0.9 K/mm3 H K/mm3 (0.1-0.6) Eos # (Auto) 0.1 K/mm3 K/mm3 (0-0.3) Baso # (Auto) 0.0 K/mm3 K/mm3 (0.0-0.1) Abs Immat Gran (auto) 0.03 K/mm3 K/mm3 (0.00-0.031) Absolute Neuts (auto) 6.7 K/mm3 K/mm3 (1.3-6.7) Absolute Nucleated RBC 0.0 K/mm3 K/mm3 (0.0-0.012) Nucleated RBC % 0.0 % % (0.0-0.2) Sodium 134 mmol/L L mmol/L (137-145) Potassium 4.5 mmol/L mmol/L (3.4-5.0) Chloride 98 mmol/L mmol/L (98-107) Carbon Dioxide 23 mmol/L mmol/L (22-30) Anion Gap 13 mmol/L mmol/L (8-16) BUN 13 mg/dL mg/dL (9-20) Creatinine 0.80 mg/dL mg/dL (0.7-1.3) Estim Creat Clear Calc 149 ml/min ml/min Estimated GFR > 60 (59 - ) Glucose 98 mg/dL mg/dL (65-110) Calcium 8.8 mg/dL mg/dL (8.4-10.2) Total Bilirubin 1.0 mg/dL mg/dL (0.2-1.3) AST 25 U/L U/L (17-59) ALT 21 U/L U/L (4-50) Alkaline Phosphatase 111 U/L U/L (38-126) Total Protein 8.0 g/dL g/dL (6.3-8.2) Albumin 4.1 g/dL g/dL (3.5-5.1) Patient hx anesthesia problems: other (agitation) Family hx anesthesia problems: none and other (slow to awaken) Results Review: All pre-operative results and documents have been reviewed as part of the pre-operative evaluation. 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 with body mass index (BMI) greater than or equal to 70 in adult History of diverticulitis of colon Obstructive sleep apnea Tobacco abuse Varicose veins of bilateral lower extremities with other complications Surgical History Surgical History History of ear surgery Family History Family History Mother Diabetes mellitus Family history of elevated blood lipids Depression Family history of malignant neoplasm of breast in first degree relative Family history of type 2 diabetes mellitus Father Hypertension Family history of elevated blood lipids Other Family history of cardiovascular disease Family history of malignant neoplasm Social History Social History (Reviewed 01/01/22 @ 12:01 by Matthew Hughes
[2022-01-01] MEDS: LACTATED RINGERS 1,000 ML 150 ML IV CONT (12:11)
--- NOTE | 2022-01-01 12:58 | PCWOUND ---
WOCN NOTE Received order to esther both sides of abdomen for possible ostomy placement. Both sides assessed, rectus muscle identified. Placed a black X in the most optimal place of ostomy. Covered with a Tegaderm. Will follow as needed after surgery.
--- NOTE | 2022-01-01 13:43 | PM.IMPN ---
Progress Note: A&P Assessment and Plan (1) Bowel obstruction: Qualifiers: Intestinal obstruction extent: unspecified extent Intestinal obstruction type: unspecified Qualified Code(s): K56.609 - Unspecified intestinal obstruction, unspecified as to partial versus complete obstruction Code(s): K56.609 - Unspecified intestinal obstruction, unspecified as to partial versus complete obstruction Status: Acute Assessment and Plan: CT abdomen pelvis showing narrowing of the sigmoid colon with proximal extension suspicious for colonic obstruction. Pericolic stranding is noted compatible with inflammation. Findings may reflect inflammatory or malignant stricture. Diverticulitis not excluded. Vital signs stable. Surgery plans to optimize patient via NG tube and proceed with possible excision of the sigmoid stricture. Patient is having frequent small loose stools, but not passing much gas. Surgery has been consulted and desired to have colonoscopy outpatient for possible ballooning or stent the sigmoid stricture, however presenting back to the hospital with microperforation on CT scan, this may be too high risk. They advised he will need eventual surgical resection of the stricture but they are trying to decrease inflammation with the goal to plan for a one-step operation. Further planning is pending, following his NG tube progress. NG tube is in place NPO Levaquin and Flagyl started empirically with microperforation. Pain & nausea control Pepcid IV Flex sig today (2) Obesity (BMI 30-39.9): Code(s): E66.9 - Obesity, unspecified Status: Chronic Assessment and Plan: Will discuss weight loss, healthy diet and exercise with patient. During prior admission patient was advised to began weight loss regimen. (3) History of diverticulitis of colon: Code(s): Z87.19 - Personal history of other diseases of the digestive system Status: Chronic Assessment and Plan: CT cannot exclude. Plan as above<del>.</del> (4) Obstructive sleep apnea: Code(s): G47.33 - Obstructive sleep apnea (adult) (pediatric) Status: Chronic Assessment and Plan: Will defer CPAP with concurrent NG tube placement Subjective Date/time seen: 01/01/22 13:43 Interval history: 46-year-old male smoker with history of diverticulitis admitted for bowel obstruction. Pt had just come from GI lab and was sleepy from anesthesia. Minimal pain. No N/V. Not really passing gas. No cp/sob. Review of Systems Review of Systems: All systems reviewed & are unremarkable except as noted in HPI and below Exam Narrative: General: No acute distress, non toxic appearing, obese Eyes: PERRL, no scleral icterus HEENT: NCAT, external ears normal, MMM Respiratory: No respiratory distress, Lungs CTA bilaterally, no wheezing Cardiovascular: RRR, no murmur Abdominal: Soft, mild lower abdominal ttp, non distended, no rebound or guarding Musculoskeletal: Moves all 4 extremities, no edema Neurological: A/Ox3, speech clear, no facial asymmetry Skin: Warm, dry, no rashes Psychiatric: Normal affect, normal mood Objective Data Vital Signs Vital Signs: Vital Signs - 24 hr 12/31/21 15:30 12/31/21 21:41 01/01/22 06:00 Temperature 98 F 98.6 F 97.9 F Pulse Rate 91 99 97 Respiratory Rate 18 14 16 Blood Pressure 122/66 167/98 H 134/95 H Pulse Oximetry 94 93 96 01/01/22 08:53 01/01/22 12:06 01/01/22 13:19 Temperature 97.5 F L Pulse Rate 94 98 Respiratory Rate 20 21 H Blood Pressure 130/86 139/96 H Pulse Oximetry 95 95 95 01/01/22 13:29 01/01/22 13:39 Temperature Pulse Rate 96 92 Respiratory Rate 21 H 22 H Blood Pressure 149/85 H 153/89 H Pulse Oximetry 96 95 Intake/Output Intake/Output: Intake & Output 12/29/21 12/30/21 12/31/21 01/01/22 23:59 23:59 23:59 23:59 Intake Total 3400 2550 1350 Output Total 1100 1500 Balance 2300 1050 1350 Me
--- NOTE | 2022-01-01 14:04 | PC.NURSE ---
Returned from GI Lab. Report received from Xiomy
[2022-01-01] MEDS: PROMETHAZINE HCL 25 MG/ML AMPUL 12.5 MG IV PUSH (15:26)
[2022-01-01] MEDS: HYDROmorphone HCL INJ (*CRX) 1 MG/ML SYR 0.5 MG IV PUSH ×2 (15:27→20:41)
--- NOTE | 2022-01-01 15:29 | PM.PNGS ---
Progress Note: A&P Assessment and Plan (1) Diverticulitis: Onset Date: ~11/2021 Code(s): K57.92 - Diverticulitis of intestine, part unspecified, without perforation or abscess without bleeding Status: Acute Assessment and Plan: Patient has some element of chronic or acute inflammation in the area of the sigmoid just above the rectosigmoid junction by CT. We are continuing the IV antibiotics to cover for infection is possible micro perforation in the area. (2) Tobacco abuse: Code(s): Z72.0 - Tobacco use Status: Chronic (3) Obstructive sleep apnea: Code(s): G47.33 - Obstructive sleep apnea (adult) (pediatric) Status: Chronic (4) Stricture of sigmoid colon: Onset Date: Unknown Code(s): K56.699 - Other intestinal obstruction unspecified as to partial versus complete obstruction Status: Chronic Assessment and Plan: See sigmoid /colonoscopy report. I have had a thorough discussion with the patient, his significant other ( baldemar ) and mother this date. I recommended that we continue with the slow clean out over the weekend. Await biopsies done today at the time of his sigmoid examination with the colonoscope. And then consider proceeding with a hand assisted laparoscopic sigmoid colectomy with anastomosis possible open possible colostomy or diverting ileostomy. at this time and previously I have discussed the risks, benefits, and possible complications of such a procedure. These include bleeding, infection, possible leak from the anastomosis, possible injury to surrounding organs such as the left ureter posterior to the area of inflammation. Also medical complications such as pneumonia heart attack or stroke have been discussed. Hopefully we will be able to get his NG tube out over the next day or 2 and we will allow him to have clear liquids through this time while were waiting for the biopsy reports. May also have him take some surgery ensure for nutrition. I have encouraged him to rotate between laying in bed plugging the NG getting up and walking and sitting in the chair to increase his activity. (5) Bowel obstruction: Qualifiers: Intestinal obstruction extent: unspecified extent Intestinal obstruction type: unspecified Qualified Code(s): K56.609 - Unspecified intestinal obstruction, unspecified as to partial versus complete obstruction Code(s): K56.609 - Unspecified intestinal obstruction, unspecified as to partial versus complete obstruction Status: Acute Assessment and Plan: Seems to be resolved as there is less out the NG and now we know the colonoscope can fit through the area of narrowing in the sigmoid colon. Subjective Subjective Date/Time Seen: 01/01/22 15:29 Patient seen today after his flexible sigmoidoscopy/partial colonoscopy. (Please see report ) Patient awake but still having some affects from his sedation. He states that he feels slightly nauseated but is not having abdominal pain. He remember talking to Dr. Christine somewhat in the postop GI lab room. Review of Systems Review of Systems: All systems reviewed & are unremarkable except as noted in HPI and below Constitutional: Constitutional: Reports as per HPI, Reports no additional constitutional complaints, Denies chills, Reports fatigue, Denies fever(s), Reports poor appetite and Denies weakness Eyes: Eyes: Reports no additional eye complaints ENT: Reports system reviewed and no additional complaints, except as documented and Denies dysphagia Cardiovascular: Cardiovascular: Reports no additional cardiovascular complaints, Denies chest pain, Denies leg edema and Denies dyspnea Respiratory: Respiratory: Reports no additional respiratory complaints, Reports no additional respiratory complaints, Denies cough and Denies dyspnea Gastrointestinal: Gastrointestinal: Reports as per HPI, Reports no additional gastrointestinal complaints, Reports abdomin
[2022-01-01] MEDS: NICOTINE (*PBKC) 21 MG PATCH 1 PATCH TRANSDERM (17:43)
[2022-01-02] MEDS: HYDROmorphone HCL INJ (*CRX) 1 MG/ML SYR 0.5 MG IV PUSH ×3 (01:27→20:19)
[2022-01-02] MEDS: PROMETHAZINE HCL 25 MG/ML AMPUL 12.5 MG IV PUSH ×2 (01:27→12:47)
[2022-01-02] MEDS: metroNIDAZOLE 500 MG/ISO 100ML 500 MG/100 ML BAG 100 MG IVPB ×4 (02:52→20:19)
[2022-01-02 03:10] VITALS: BP 138/87; PULSE 87; RESP 17; TEMP 36.1; O2SAT 94
[2022-01-02 05:59] LABS: Basophils Percent Auto 0.6 % (0.2-1.2); Eosinophils Absolute Auto 0.1 K/mm3 (0-0.3); Eosinophils Percent Auto 1.7 % (0-4.4); Hematocrit 40.8 % (42.0-52.0); Hemoglobin 13.4 g/dL (14.0-18.0); Immature Granulocyte Absolute 0.03 K/mm3 (0.00-0.031); Immature Granulocyte Percent A 0.4 % (0-0.5); Lymphocytes Absolute Auto 1.87 K/mm3 (0.9-3.2); Lymphocytes Percent Auto 26.6 % (18.3-44.2); Mean Corpuscular HGB Conc 32.8 g/dl (32-36); Mean Corpuscular Hemoglobin 30.5 pg (26-34); Mean Corpuscular Volume 92.7 fl (80-100); Mean Platelet Volume 10.4 fl (7.4-10.4); Monocytes Absolute Auto 0.6 K/mm3 (0.1-0.6); Monocytes Percent Auto 9.1 % (2.6-8.5); Neutrophils Absolute Auto 4.3 K/mm3 (1.3-6.7); Neutrophils Percent Auto 61.6 % (45.5-73.1); Platelet Count Result 332 k/mm3 (150-375); Red Cell Distribution Width 14.1 % (11.5-14.5)
[2022-01-02 08:02] VITALS: BP 156/92; PULSE 78; RESP 16; TEMP 36.4; O2SAT 96
[2022-01-02 08:03] LABS: Alanine Aminotransferase 16 U/L (4-50); Albumin Level 3.3 g/dL (3.5-5.1); Alkaline Phosphatase 90 U/L (38-126); Anion Gap 10 mmol/L (8-16); Aspartate Amino Transferase 22 U/L (17-59); Bilirubin,Total 0.8 mg/dL (0.2-1.3); Blood Urea Nitrogen 13 mg/dL (9-20); Calcium 8.2 mg/dL (8.4-10.2); Carbon Dioxide 26 mmol/L (22-30); Chloride 98 mmol/L (98-107); Estimated CRCL calculation 134 ml/min; Estimated Glomerular Filt Rate > 60; Glucose 76 mg/dL (65-110); Potassium 3.8 mmol/L (3.4-5.0); Sodium 134 mmol/L (137-145)
[2022-01-02 08:06] VITALS: BP 102/48; PULSE 62; RESP 16; TEMP 36.1; O2SAT 97
[2022-01-02] MEDS: SODIUM CHLORIDE 0.9% IV 1,000 ML 125 ML IV CONT ×2 (08:11→18:05)
[2022-01-02] MEDS: FAMOTIDINE 20 MG/2 ML VIAL IV PUSH ×2 (08:12→20:19)
--- NOTE | 2022-01-02 09:50 | PM.IMPN ---
Progress Note: A&P Assessment and Plan (1) Bowel obstruction: Qualifiers: Intestinal obstruction extent: unspecified extent Intestinal obstruction type: unspecified Qualified Code(s): K56.609 - Unspecified intestinal obstruction, unspecified as to partial versus complete obstruction Code(s): K56.609 - Unspecified intestinal obstruction, unspecified as to partial versus complete obstruction Status: Acute Assessment and Plan: - Continue NG tube to suction until advised to remove per Dr. Tirado. - NPO - On schedule for Sigmoid colectomy for Wednesday with Dr. Tirado. - Will have slow clean out over the weekend. - Encourage ambulation. (2) Obesity (BMI 30-39.9): Code(s): E66.9 - Obesity, unspecified Status: Chronic Assessment and Plan: - Pt. will need eventual education at some point during his hospitalization for lifestyle modifications. (3) History of diverticulitis of colon: Code(s): Z87.19 - Personal history of other diseases of the digestive system Status: Chronic Assessment and Plan: - Flex Sigmoidoscopy yesterday without any overt signs of acute Diverticulitis. - Pt. without diarrhea or pain. - Concern for possible Chronic DIVERTICULOSIS that has potentially been a causative factor for patient. - Plan to be made by surgery for management. (4) Obstructive sleep apnea: Code(s): G47.33 - Obstructive sleep apnea (adult) (pediatric) Status: Chronic Assessment and Plan: - Continue to defer in light of NG tube in place. Time Spent With Patient Time with patient: 15 - 25 minutes Subjective Date/time seen: 01/02/22 09:50 This pt. was examined at the bedside this morning in interval assessment after being admitted to the hospital with a recurring sigmoid colon stricture of unknown definite etiology. Yesterday he had a flexible sigmoidoscopy and the stricture is at least 5 cm long but was able to be traversed the colonoscope. It is noted that the stricture is likely due to chronic diverticulosis as evidenced by the GI specialist seeing edema and erythema with initially having difficulty with traversing the stricture, but was finally able to. Biopsies were taken, but there were no overt signs of any mass. Internal hemorrhoids were noted without any bleeding. Dr. Tirado from surgery is managing currently and we spoke this AM. The pt. has had 200 ml of drainage per NG tube overnight and the stomach is likely pretty well decompressed. He is recommending a slow clean out over the weekend with clamping of the NG tube today after the administration of Miralax through it, with possible removal of the NG later today and minimal clear liquids offered. This advancement/removal of NG tube plan is to be determined by Surgery, Dr. Tirado. The pt. will have a slow clean out over the weekend and then on Wednesday, he is scheduled for a sigmoid colectomy. Currently the pt. appears comfortable without any signs of distress and he denies any pain, Dyspnea, Nausea. He did pass a miniscule amount of gas overnight. Review of Systems Review of Systems: All systems reviewed & are unremarkable except as noted in HPI and below Exam Const: General: comfortable Other: Obese HENMT: Mouth: Yes moist mucous membranes Eyes: Sclera: sclerae normal Neck: Neck: supple and no JVD Lymphatic: lymphadenopathy not noted Resp: Effort & Inspection: normal respiratory effort Auscultation: clear to auscultation bilaterally Cardio: Rate: regular rate Rhythm: regular rhythm Heart sounds: no gallops, no murmurs and no rubs GI: GI Palp: Yes Soft to palpation, No Tenderness to palpation present (GI) and No Guarding due to palpation present (GI) Auscultation: abnormal bowel sounds (Hypoactive) Skin: General skin exam: normal color and no rashes or lesions noted Neuro: General: gait normal Speech: normal speech Motor exam (neuro): 5/5 motor strength present throughout and Normal
[2022-01-02] MEDS: polyethylene glycoL 3350 17 GM POWD.PACK PO (10:02)
[2022-01-02 14:00] VITALS: BP 150/95; PULSE 83; RESP 16; TEMP 36; O2SAT 95
--- NOTE | 2022-01-02 14:45 | P.PNAN_ITS ---
Anes - Prog Note Post-Op Date/Time: 01/02/22 14:45 Cardiovascular status: normal Respiratory status: normal Airway patency: baseline Mental status: baseline Post-Op hydration status: normal Vital Signs: Last Vital Signs Temp 36.1 C L 01/02/22 08:06 Pulse 62 01/02/22 08:06 Resp 16 01/02/22 08:06 BP 102/48 L 01/02/22 08:06 Pulse Ox 97 01/02/22 08:06 Pain Score (VAS): 1 I/O: Intake & Output 01/01/22 01/02/22 01/02/22 23:59 07:59 15:59 Intake Total 1200 1350 100 Output Total 200 200 Balance 1000 1150 100 Laboratory Tests 01/02/22 05:34 01/02/22 07:13 01/02/22 01/02/22 05:34 07:13 WBC 7.0 RBC 4.40 L Hgb 13.4 L Hct 40.8 L MCV 92.7 MCH 30.5 MCHC 32.8 RDW 14.1 Plt Count 332 MPV 10.4 Immature Gran % (Auto) 0.4 Neut % (Auto) 61.6 Lymph % (Auto) 26.6 [place] % (Auto) 9.1 H Eos % (Auto) 1.7 Baso % (Auto) 0.6 Lymph # (Auto) 1.87 [place] # (Auto) 0.6 Eos # (Auto) 0.1 Baso # (Auto) 0.0 Abs Immat Gran (auto) 0.03 Absolute Neuts (auto) 4.3 Absolute Nucleated RBC 0.0 Nucleated RBC % 0.0 Sodium 134 L Potassium 3.8 Chloride 98 Carbon Dioxide 26 Anion Gap 10 BUN 13 Creatinine 0.90 Estim Creat Clear Calc 134 Estimated GFR > 60 Glucose 76 Calcium 8.2 L Total Bilirubin 0.8 AST 22 ALT 16 Alkaline Phosphatase 90 Total Protein 7.0 Albumin 3.3 L Post-procedural complaints: none Patient Feedback: Patient satisfied with anesthetic care.
--- NOTE | 2022-01-02 15:16 | PM.PNGS ---
Progress Note: A&P Assessment and Plan (1) Stricture of sigmoid colon: Onset Date: Unknown Code(s): K56.699 - Other intestinal obstruction unspecified as to partial versus complete obstruction Status: Chronic Assessment and Plan: See sigmoid /colonoscopy report. I have had a thorough discussion with the patient, his significant other ( baldemar ) and mother. I recommended that we continue with the slow colon clean out over the weekend. Await biopsies done today at the time of his sigmoid examination with the colonoscope. And then consider proceeding with a hand assisted laparoscopic sigmoid colectomy with anastomosis, possible open, possible colostomy, or diverting ileostomy. At this time and previously I have discussed the risks, benefits, and possible complications of such a procedure. Patient has now been marked by our ostomy nurses at sites ideal for ostomies if needed. These include bleeding, infection, possible leak from the anastomosis, possible injury to surrounding organs such as the left ureter posterior to the area of inflammation. Also, medical complications such as pneumonia heart attack or stroke have been discussed. Hopefully, we will be able to get his NG tube out over the next day or 2 and we will allow him to have clear liquids through this time while were waiting for the biopsy reports. May also have him take some surgery Ensure for nutrition. I have encouraged him to rotate between laying in bed, plugging the NG getting up and walking, and sitting in the chair to increase his activity. (2) Bowel obstruction: Qualifiers: Intestinal obstruction extent: unspecified extent Intestinal obstruction type: unspecified Qualified Code(s): K56.609 - Unspecified intestinal obstruction, unspecified as to partial versus complete obstruction Code(s): K56.609 - Unspecified intestinal obstruction, unspecified as to partial versus complete obstruction Status: Acute Assessment and Plan: Seems to be resolved as there is less out the NG and now we know the colonoscope can fit through the area of narrowing in the sigmoid colon. Patient however is still feeling occasionally bloated. He tolerated call the NG clamped for 2-1/2 hours with MiraLax administered along with drinking some apple juice. Upon reconnecting the NG for our only 75 cc came back. However, because he is still feeling slightly bloated and queasy (possibly because of the affects of the MiraLax to try to clean him out) he is hesitant to have me remove the NG. For this we will try stopping the port chrome is eating and putting him on routine Q 6 our scheduled doses of Reglan to see if that will help empty the small bowel. I believe this is safe now that we know that he does not have a complete obstruction in the area of his sigmoid. (3) Diverticulitis: Onset Date: ~11/2021 Code(s): K57.92 - Diverticulitis of intestine, part unspecified, without perforation or abscess without bleeding Status: Acute Assessment and Plan: Patient has some element of chronic or acute inflammation in the area of the sigmoid just above the rectosigmoid junction by CT. We are continuing the IV antibiotics to cover for infection is possible micro perforation in the area. (4) Tobacco abuse: Code(s): Z72.0 - Tobacco use Status: Chronic Assessment and Plan: Patient using a nicotine patch in the hospital Have thoroughly discussed with him again the importance of staying off cigarettes once he leaves the hospital in order for ideal healing. (5) Obstructive sleep apnea: Code(s): G47.33 - Obstructive sleep apnea (adult) (pediatric) Status: Chronic Assessment and Plan: Will start using CPAP once his NG tube is out. Subjective Subjective Date/Time Seen: 01/02/22 15:16 Patient with NG tube in. He states he still feels occasional queasy. He states he is passing a small amoun
--- NOTE | 2022-01-02 17:54 | WPDGIPROGNO ---
Progress Note: A&P Assessment and Plan (1) Bowel obstruction: Qualifiers: Intestinal obstruction extent: unspecified extent Intestinal obstruction type: unspecified Qualified Code(s): K56.609 - Unspecified intestinal obstruction, unspecified as to partial versus complete obstruction Code(s): K56.609 - Unspecified intestinal obstruction, unspecified as to partial versus complete obstruction Status: Acute Assessment and Plan: sigmoidoscopy yesterday, pending biopsies but most likely from chronic diverticulitis surgery planing surgical intervention will follow from [place], call if questions (2) Stricture of sigmoid colon: Onset Date: Unknown Code(s): K56.699 - Other intestinal obstruction unspecified as to partial versus complete obstruction Status: Chronic (3) Diverticulitis: Onset Date: ~11/2021 Code(s): K57.92 - Diverticulitis of intestine, part unspecified, without perforation or abscess without bleeding Status: Acute (4) 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 Still with abdominal discomfort and bloating. Review of Systems Review of Systems: All systems reviewed & are unremarkable except as noted in HPI and below Exam Const: General: comfortable and no acute distress HENMT: Ears: TM's normal bilaterally Eyes: General: appearance normal, both eyes and all related structures Neck: Neck: no JVD Resp: Auscultation: clear to auscultation bilaterally Cardio: Rate: regular rate Rhythm: regular rhythm GI: Inspection: non-distended GI Palp: Yes Soft to palpation and Yes Tenderness to palpation present (GI) (lower abdomen, no rebound) Auscultation: normal bowel sounds Skin: General skin exam: normal color Neuro: Speech: normal speech Motor exam (neuro): Normal motor muscle tone present throughout Extrem: General: normal to inspection Psych: Mental Status: mental status grossly normal Objective Data Vital Signs Vital Signs: Vital Signs - 24 hr 01/01/22 19:19 01/02/22 03:10 01/02/22 08:02 Temperature 97.8 F 97 F L 97.5 F L Pulse Rate 99 87 78 Respiratory Rate 20 17 16 Blood Pressure 133/73 138/87 156/92 H Pulse Oximetry 95 94 96 01/02/22 08:06 01/02/22 14:00 Temperature 96.9 F L 96.8 F L Pulse Rate 62 83 Respiratory Rate 16 16 Blood Pressure 102/48 L 150/95 H Pulse Oximetry 97 95 Intake/Output Intake/Output: Intake & Output 12/30/21 12/31/21 01/01/22 01/02/22 23:59 23:59 23:59 23:59 Intake Total 3400 2550 2550 1550 Output Total 1100 1500 200 900 Balance 2300 1050 2350 650 Meds/Results Medications: Active Medications Generic Name Dose Route Start Last Admin Trade Name Freq PRN Reason Stop Dose Admin Benzocaine 1 lozenge 12/31/21 12:12 12/31/21 13:16 Benzocaine/Menthol (*Bkc) 18 Ea Lozenge PO 1 lozenge PRN PRN Administration Sore Throat Famotidine 20 mg 12/30/21 21:00 01/02/22 08:12 Famotidine 20 Mg/2 Ml Vial IV PUSH 20 mg Q12HR JP Administration Hydromorphone HCl 0.5 mg 12/30/21 02:22 01/02/22 12:46 Hydromorphone Hcl Inj (*Crx) 1 Mg/Ml Syr IV PUSH 0.5 mg Q4H PRN Administration Pain Rated 7-10 Levofloxacin/Dextrose 750 mg in 150 mls @ 100 mls/hr 12/31/21 03:00 01/02/22 05:33 Levaquin 750 Mg/D5w 150 Ml IVPB Infused Q24H JP Infusion Metronidazole 500 mg in 100 mls @ 100 mls/hr 12/30/21 09:00 01/02/22 15:32 Flagyl 500 Mg/Iso Soln 100 Ml IVPB 100 mls/hr Q6H JP Administration Sodium Chloride 1,000 mls @ 125 mls/hr 12/30/21 02:25 01/02/22 08:11 Normal Saline Iv IV
[2022-01-02] MEDS: NICOTINE (*PBKC) 21 MG PATCH 1 PATCH TRANSDERM (18:04)
[2022-01-02] MEDS: METOCLOPRAMIDE HCL INJ 10 MG/2 ML VIAL 5 MG IV PUSH (18:04)
[2022-01-02] MEDS: BISACODYL 10 MG SUPPOSITORY RECTAL (18:38)
[2022-01-02 21:12] VITALS: O2SAT 94
[2022-01-02 22:00] VITALS: BP 145/86; PULSE 105; RESP 16; TEMP 36.8; O2SAT 93
[2022-01-03] MEDS: METOCLOPRAMIDE HCL INJ 10 MG/2 ML VIAL 5 MG IV PUSH ×5 (00:42→23:10)
[2022-01-03] MEDS: metroNIDAZOLE 500 MG/ISO 100ML 500 MG/100 ML BAG 100 MG IVPB ×4 (02:01→20:23)
[2022-01-03 05:57] LABS: Basophils Percent Auto 0.5 % (0.2-1.2); Eosinophils Absolute Auto 0.1 K/mm3 (0-0.3); Eosinophils Percent Auto 1.5 % (0-4.4); Hematocrit 40.8 % (42.0-52.0); Hemoglobin 13.2 g/dL (14.0-18.0); Immature Granulocyte Absolute 0.03 K/mm3 (0.00-0.031); Immature Granulocyte Percent A 0.4 % (0-0.5); Lymphocytes Absolute Auto 1.61 K/mm3 (0.9-3.2); Lymphocytes Percent Auto 21.6 % (18.3-44.2); Mean Corpuscular HGB Conc 32.4 g/dl (32-36); Mean Corpuscular Hemoglobin 29.9 pg (26-34); Mean Corpuscular Volume 92.5 fl (80-100); Mean Platelet Volume 9.8 fl (7.4-10.4); Neutrophils Absolute Auto 4.7 K/mm3 (1.3-6.7); Platelet Count Result 272 k/mm3 (150-375); Red Blood Count 4.41 M/mm3 (4.6-6.20); Red Cell Distribution Width 14.2 % (11.5-14.5); White Blood Count 7.4 K/mm3 (4.5-10.0)
[2022-01-03 06:00] VITALS: BP 130/84; PULSE 102; RESP 20; TEMP 36.3; O2SAT 98
[2022-01-03 06:14] LABS: Alanine Aminotransferase 15 U/L (4-50); Albumin Level 3.4 g/dL (3.5-5.1); Alkaline Phosphatase 86 U/L (38-126); Anion Gap 9 mmol/L (8-16); Aspartate Amino Transferase 24 U/L (17-59); Bilirubin,Total 0.7 mg/dL (0.2-1.3); Blood Urea Nitrogen 9 mg/dL (9-20); Calcium 8.2 mg/dL (8.4-10.2); Carbon Dioxide 27 mmol/L (22-30); Chloride 99 mmol/L (98-107); Estimated CRCL calculation 149 ml/min; Estimated Glomerular Filt Rate > 60; Glucose 77 mg/dL (65-110); Magnesium 1.9 mg/dL (1.6-2.3); Potassium 3.6 mmol/L (3.4-5.0); Sodium 135 mmol/L (137-145)
[2022-01-03] MEDS: FAMOTIDINE 20 MG/2 ML VIAL IV PUSH ×2 (09:20→20:23)
--- NOTE | 2022-01-03 10:35 | PM.IMPN ---
Progress Note: A&P Assessment and Plan (1) Bowel obstruction: Qualifiers: Intestinal obstruction extent: unspecified extent Intestinal obstruction type: unspecified Qualified Code(s): K56.609 - Unspecified intestinal obstruction, unspecified as to partial versus complete obstruction Code(s): K56.609 - Unspecified intestinal obstruction, unspecified as to partial versus complete obstruction Status: Acute Assessment and Plan: - Continue NG tube to suction until advised to remove per Dr. Tirado. - NPO - On schedule for Sigmoid colectomy for Wednesday with Dr. Tirado. - Will have slow clean out over the weekend. - Encourage ambulation. -there are increased bowel sounds today on assessment. (2) Obesity (BMI 30-39.9): Code(s): E66.9 - Obesity, unspecified Status: Chronic Assessment and Plan: - Pt. will need eventual education at some point during his hospitalization for lifestyle modifications. (3) History of diverticulitis of colon: Code(s): Z87.19 - Personal history of other diseases of the digestive system Status: Chronic Assessment and Plan: - Flex Sigmoidoscopy yesterday without any overt signs of acute Diverticulitis. - Pt. without diarrhea or pain. - Concern for possible Chronic DIVERTICULOSIS that has potentially been a causative factor for patient. - Plan to be made by surgery for management. (4) Obstructive sleep apnea: Code(s): G47.33 - Obstructive sleep apnea (adult) (pediatric) Status: Chronic Assessment and Plan: - Continue to defer in light of NG tube in place. Subjective Date/time seen: 01/03/22 0900 This pleasant 46-year-old gentleman was examined at the bedside this morning in interval assessment. He is in good spirits today, sitting up in a chair at the bedside enjoying the sunshine in his room. Patient does still have complaints of some cramping in endorses that he has not been able to pass any flatus. There who for no bowel movements overnight. Patient does still have his NG tube which that had 250 cc out over the entire night. Patient has no new complaints today of dyspnea and or chest pain. He is being managed currently by General surgery and GI services and the plan is for sigmoid colectomy on Wednesday. Dr. Tirado from surgery to determine with the NG tube may be removed and slow bowel prep started over the weekend. Review of Systems Review of Systems: All systems reviewed & are unremarkable except as noted in HPI and below Exam Narrative: General: No acute distress, non toxic appearing, obese Eyes: PERRL, no scleral icterus HEENT: NCAT, external ears normal, MMM Respiratory: No respiratory distress, Lungs CTA bilaterally, no wheezing Cardiovascular: RRR, no murmur Abdominal: Soft, mild lower abdominal ttp, non distended, no rebound or guarding Musculoskeletal: Moves all 4 extremities, no edema Neurological: A/Ox3, speech clear, no facial asymmetry Skin: Warm, dry, no rashes Psychiatric: Normal affect, normal mood Const: General: comfortable and no acute distress Other: Morbid obesity HENMT: Mouth: Yes moist mucous membranes Eyes: Sclera: sclerae normal Neck: Neck: supple and no JVD Lymphatic: lymphadenopathy not noted Resp: Effort & Inspection: normal respiratory effort Auscultation: clear to auscultation bilaterally Cardio: Rate: regular rate Rhythm: regular rhythm GI: Inspection: non-distended GI Palp: Yes Soft to palpation, No Firmness to palpation present (GI), No Tenderness to palpation present (GI) and No Guarding due to palpation present (GI) Auscultation: normal bowel sounds Skin: General skin exam: normal color and no rashes or lesions noted Neuro: General: gait normal Speech: normal speech Motor exam (neuro): 5/5 motor strength present throughout and Normal motor muscle tone present throughout Extrem: General: normal to inspection Psych: Mental Status: mental status gross
--- NOTE | 2022-01-03 12:53 | PM.PNGS ---
Progress Note: A&P Assessment and Plan (1) Stricture of sigmoid colon: Onset Date: Unknown Code(s): K56.699 - Other intestinal obstruction unspecified as to partial versus complete obstruction Status: Chronic Assessment and Plan: See sigmoid /colonoscopy report. I have had a thorough discussion with the patient, his significant other ( baldemar ) and mother. I recommended that we continue with the slow colon clean out over the weekend. Await biopsies done today at the time of his sigmoid examination with the colonoscope. And then consider proceeding with a hand assisted laparoscopic sigmoid colectomy with anastomosis, possible open, possible colostomy, or diverting ileostomy. At this time and previously I have discussed the risks, benefits, and possible complications of such a procedure. Patient has now been marked by our ostomy nurses at sites ideal for ostomies if needed. These include bleeding, infection, possible leak from the anastomosis, possible injury to surrounding organs such as the left ureter posterior to the area of inflammation. Also, medical complications such as pneumonia heart attack or stroke have been discussed. To today I was able to get his NG tube out so over the next day or 2 and we will allow him to have clear liquids through this time while were waiting for the biopsy reports. (I talked to our pathologist Wednesday late and preliminary report shows no signs of tumor ). Will also have him take some surgery Ensure for nutrition. I have encouraged him to rotate between laying in bed, plugging the NG getting up and walking, and sitting in the chair to increase his activity. (2) Bowel obstruction: Qualifiers: Intestinal obstruction extent: unspecified extent Intestinal obstruction type: unspecified Qualified Code(s): K56.609 - Unspecified intestinal obstruction, unspecified as to partial versus complete obstruction Code(s): K56.609 - Unspecified intestinal obstruction, unspecified as to partial versus complete obstruction Status: Acute Assessment and Plan: Seems to be resolved as there is less out the NG and now we know the colonoscope can fit through the area of narrowing in the sigmoid colon. Patient however is still feeling occasionally bloated. He tolerated call the NG clamped for 2-1/2 hours with MiraLax administered along with drinking some apple juice. Upon reconnecting the NG for our only 75 cc came back. However, because he is still feeling slightly bloated and queasy (possibly because of the affects of the MiraLax to try to clean him out) he is hesitant to have me remove the NG. For this we will try stopping the port chrome is eating and putting him on routine Q 6 our scheduled doses of Reglan to see if that will help empty the small bowel. I believe this is safe now that we know that he does not have a complete obstruction in the area of his sigmoid. (3) Diverticulitis: Onset Date: ~11/2021 Code(s): K57.92 - Diverticulitis of intestine, part unspecified, without perforation or abscess without bleeding Status: Acute Assessment and Plan: Patient has some element of chronic or acute inflammation in the area of the sigmoid just above the rectosigmoid junction by CT. We are continuing the IV antibiotics to cover for infection is possible micro perforation in the area. (4) Tobacco abuse: Code(s): Z72.0 - Tobacco use Status: Chronic Assessment and Plan: Patient using a nicotine patch in the hospital Have thoroughly discussed with him again the importance of staying off cigarettes once he leaves the hospital in order for ideal healing. (5) Obstructive sleep apnea: Code(s): G47.33 - Obstructive sleep apnea (adult) (pediatric) Status: Chronic Assessment and Plan: Will start using CPAP once his NG tube is out. Subjective Subjective Date/Time Seen: 01/03/22 12:53 Patient lying in
[2022-01-03] MEDS: SODIUM CHLORIDE 0.9% IV 1,000 ML 125 ML IV CONT (13:31)
[2022-01-03 14:12] VITALS: BP 168/96; PULSE 108; RESP 12; TEMP 36.9; O2SAT 98
[2022-01-03] MEDS: PEG (High)/E-LYTE SOLN 4,000 ML BTL 3000 ML PO (14:39)
[2022-01-03] MEDS: NICOTINE (*PBKC) 21 MG PATCH 1 PATCH TRANSDERM (17:09)
[2022-01-03 19:21] VITALS: BP 148/82; PULSE 87; RESP 16; TEMP 36.2; O2SAT 96
[2022-01-04] MEDS: metroNIDAZOLE 500 MG/ISO 100ML 500 MG/100 ML BAG 100 MG IVPB ×4 (02:33→21:07)
[2022-01-04] MEDS: SODIUM CHLORIDE 0.9% IV 1,000 ML 125 ML IV CONT ×2 (02:34→16:40)
[2022-01-04 03:05] VITALS: BP 158/91; PULSE 94; RESP 17; TEMP 36.2; O2SAT 96
[2022-01-04] MEDS: METOCLOPRAMIDE HCL INJ 10 MG/2 ML VIAL 5 MG IV PUSH ×4 (05:47→23:35)
[2022-01-04 06:48] LABS: Basophils Percent Auto 0.5 % (0.2-1.2); Eosinophils Absolute Auto 0.1 K/mm3 (0-0.3); Eosinophils Percent Auto 1.5 % (0-4.4); Hematocrit 37.6 % (42.0-52.0); Hemoglobin 12.4 g/dL (14.0-18.0); Immature Granulocyte Absolute 0.03 K/mm3 (0.00-0.031); Immature Granulocyte Percent A 0.5 % (0-0.5); Lymphocytes Absolute Auto 1.46 K/mm3 (0.9-3.2); Lymphocytes Percent Auto 25.1 % (18.3-44.2); Mean Corpuscular Hemoglobin 30.2 pg (26-34); Mean Corpuscular Volume 91.7 fl (80-100); Mean Platelet Volume 10.5 fl (7.4-10.4); Monocytes Absolute Auto 0.8 K/mm3 (0.1-0.6); Monocytes Percent Auto 14.5 % (2.6-8.5); Neutrophils Absolute Auto 3.4 K/mm3 (1.3-6.7); Neutrophils Percent Auto 57.9 % (45.5-73.1); Platelet Count Result 265 k/mm3 (150-375); Red Cell Distribution Width 14.3 % (11.5-14.5); White Blood Count 5.8 K/mm3 (4.5-10.0)
[2022-01-04 07:02] LABS: Alanine Aminotransferase 13 U/L (6-50); Albumin Level 3.2 g/dL (3.5-5.1); Alkaline Phosphatase 78 U/L (38-126); Anion Gap 6 mmol/L (8-16); Aspartate Amino Transferase 19 U/L (17-59); Bilirubin,Total 0.5 mg/dL (0.2-1.3); Blood Urea Nitrogen 7 mg/dL (9-20); Calcium 8.3 mg/dL (8.4-10.2); Carbon Dioxide 30 mmol/L (22-30); Chloride 99 mmol/L (98-107); Estimated CRCL calculation 149 ml/min; Estimated Glomerular Filt Rate > 60; Glucose 98 mg/dL (65-110); Magnesium 1.8 mg/dL (1.6-2.3); Potassium 3.3 mmol/L (3.4-5.0); Sodium 135 mmol/L (137-145)
[2022-01-04] MEDS: FAMOTIDINE 20 MG/2 ML VIAL IV PUSH ×2 (08:25→21:03)
--- NOTE | 2022-01-04 10:56 | PM.IMPN ---
Progress Note: A&P Assessment and Plan (1) Bowel obstruction: Qualifiers: Intestinal obstruction extent: unspecified extent Intestinal obstruction type: unspecified Qualified Code(s): K56.609 - Unspecified intestinal obstruction, unspecified as to partial versus complete obstruction Code(s): K56.609 - Unspecified intestinal obstruction, unspecified as to partial versus complete obstruction Status: Acute Assessment and Plan: - NG tube has been removed. -slow bowel prep has been started as per Dr. Tirado. - On schedule for Sigmoid colectomy for Wednesday with Dr. Tirado. - Will have slow clean out over the weekend. - Encourage ambulation. -there are increased bowel sounds today on assessment. (2) Obesity (BMI 30-39.9): Code(s): E66.9 - Obesity, unspecified Status: Chronic Assessment and Plan: - Pt. will need eventual education at some point during his hospitalization for lifestyle modifications. (3) History of diverticulitis of colon: Code(s): Z87.19 - Personal history of other diseases of the digestive system Status: Chronic Assessment and Plan: - Flex Sigmoidoscopy yesterday without any overt signs of acute Diverticulitis. - Pt. without diarrhea or pain. - Concern for possible Chronic DIVERTICULOSIS that has potentially been a causative factor for patient. - Plan to be made by surgery for management. (4) Obstructive sleep apnea: Code(s): G47.33 - Obstructive sleep apnea (adult) (pediatric) Status: Chronic Assessment and Plan: - Continue to defer in light of NG tube in place. Time Spent With Patient Time with patient: 15 - 25 minutes Subjective Date/time seen: 01/04/22 0830 This patient was examined at the bedside in interval assessment. He is doing well this morning. NG tube was removed last night patient has started a slow bowel prep at the request of Dr. Tirado who is managing for surgery. He will have a sigmoid colectomy tomorrow. Patient endorses that he does still have some abdominal pain, and is only having very small ?speck like stools at this time. Patient denies any current nausea. His vital signs are stable with the exception of potassium of 3.3 in anticipation of him having further bowel movements that is replaced today with 40 mEq p.o. He denies any current chest pain, dyspnea or any other complaints at this time. Review of Systems Review of Systems: All systems reviewed & are unremarkable except as noted in HPI and below Exam Const: General: comfortable and no acute distress Other: Morbidly obese HENMT: Mouth: Yes moist mucous membranes Other: NG tube has been removed Eyes: Sclera: sclerae normal Neck: Neck: supple and no JVD Lymphatic: lymphadenopathy not noted Resp: Effort & Inspection: normal respiratory effort Auscultation: clear to auscultation bilaterally Cardio: Rate: regular rate Rhythm: regular rhythm GI: GI Palp: Yes Soft to palpation and No Tenderness to palpation present (GI) Auscultation: normal bowel sounds Skin: General skin exam: normal color and no rashes or lesions noted Neuro: General: gait normal Cognition (Neuro): normal cognition Speech: normal speech Motor exam (neuro): 5/5 motor strength present throughout, Normal motor muscle tone present throughout and abnormal movements noted Sensory Exam: normal sensation Other: Patient with normal gait upon ambulation. Extrem: General: normal to inspection Psych: Mental Status: mental status grossly normal Affect: normal affect Thought content: Yes Normal thought content present Objective Data Vital Signs Vital Signs: Vital Signs - 24 hr 01/03/22 14:12 01/03/22 19:21 01/04/22 03:05 Temperature 98.4 F 97.2 F L 97.1 F L Pulse Rate 108 H 87 94 Respiratory Rate 12 16 17 Blood Pressure 168/96 H 148/82 H 158/91 H Pulse Oximetry 98 96 96 Intake/Output Intake/Output: Intake & Output 01/01/22 01/02/22 01/03/2201/04
[2022-01-04] MEDS: POTASSIUM CHLORIDE 20 MEQ TABLET 40 MEQ PO (12:25)
[2022-01-04] MEDS: NEOMYCIN SULFATE 500 MG TAB 1000 MG PO (12:26)
[2022-01-04] MEDS: ERYTHROMYCIN 250 MG TABLET 1000 MG PO (12:27)
[2022-01-04] MEDS: HYDROmorphone HCL INJ (*CRX) 1 MG/ML SYR 0.5 MG IV PUSH ×2 (16:40→21:05)
--- NOTE | 2022-01-04 17:18 | PC.NURSE ---
notified dietary that patient is supposed to receive surgery ensures
[2022-01-04] MEDS: NICOTINE (*PBKC) 21 MG PATCH 1 PATCH TRANSDERM (17:19)
[2022-01-04 17:28] VITALS: TEMP 36.3
--- NOTE | 2022-01-04 18:15 | PM.PNGS ---
Progress Note: A&P Assessment and Plan (1) Stricture of sigmoid colon: Onset Date: Unknown Code(s): K56.699 - Other intestinal obstruction unspecified as to partial versus complete obstruction Status: Chronic Assessment and Plan: See sigmoid /colonoscopy report. I have had a thorough discussion with the patient, his significant other ( baldemar ) and mother. I recommended that we continue with the slow colon clean out over the weekend. Await biopsies done today at the time of his sigmoid examination with the colonoscope. And then consider proceeding with a hand assisted laparoscopic sigmoid colectomy with anastomosis, possible open, possible colostomy, or diverting ileostomy. At this time and previously I have discussed the risks, benefits, and possible complications of such a procedure. Patient has now been marked by our ostomy nurses at sites ideal for ostomies if needed. These include bleeding, infection, possible leak from the anastomosis, possible injury to surrounding organs such as the left ureter posterior to the area of inflammation. Also, medical complications such as pneumonia heart attack or stroke have been discussed. We will allow him to have clear liquids through this time while were waiting for the biopsy reports. (I talked to our pathologist Wednesday late and preliminary report shows no signs of tumor ). Will also have him take some surgery Ensure for nutrition. (Apparently nutrition department is giving the nurses trouble trying to get this up for him). I have encouraged him to rotate between laying in bed, plugging the NG getting up and walking, and sitting in the chair to increase his activity. I have answered any further questions he had regarding surgery and its recovery. (2) Bowel obstruction: Qualifiers: Intestinal obstruction extent: unspecified extent Intestinal obstruction type: unspecified Qualified Code(s): K56.609 - Unspecified intestinal obstruction, unspecified as to partial versus complete obstruction Code(s): K56.609 - Unspecified intestinal obstruction, unspecified as to partial versus complete obstruction Status: Acute Assessment and Plan: Seems to be resolved as there is less out the NG before it was removed yesterday and now we know the colonoscope can fit through the area of narrowing in the sigmoid colon. Patient however is still feeling occasionally bloated. He has tolerated the NG out for the last 24 hours. I have put him on routine Q 6 our scheduled doses of Reglan to see if that will help empty the small bowel. I believe this is safe now that we know that he does not have a complete obstruction in the area of his sigmoid. Will do repeat abdominal plain films tomorrow morning. This is because it would be good to know if he has significantly dilated bowel just at of surgery. (3) Diverticulitis: Onset Date: ~11/2021 Code(s): K57.92 - Diverticulitis of intestine, part unspecified, without perforation or abscess without bleeding Status: Acute Assessment and Plan: Patient has some element of chronic or acute inflammation in the area of the sigmoid just above the rectosigmoid junction by CT. We are continuing the IV antibiotics to cover for infection and possible micro perforation in the area. (4) Tobacco abuse: Code(s): Z72.0 - Tobacco use Status: Chronic Assessment and Plan: Patient using a nicotine patch in the hospital Have thoroughly discussed with him again the importance of staying off cigarettes once he leaves the hospital in order for ideal healing. (5) Obstructive sleep apnea: Code(s): G47.33 - Obstructive sleep apnea (adult) (pediatric) Status: Chronic Assessment and Plan: Will start using CPAP once his NG tube is out. Additional Plan I have discussed the patient's case and plan of care with Dr. Tirado. Thank you for allowing us to see the patient in c
[2022-01-04 19:24] VITALS: BP 149/96; PULSE 99; RESP 18; TEMP 36.5; O2SAT 94
--- NOTE | 2022-01-04 19:45 | PC.NURSE ---
spoke with Dr. Tirado because patient unable to take oral antibiotics due to nausea/ pain in abdomen. Dr. Tirado gave orders to adjust timing of doses. Patient will now take 1000 mg of neomycin and 1000 mg erythromycin at 2100 and 0600
[2022-01-04 20:00] VITALS: PULSE 99; RESP 18; O2SAT 94
[2022-01-05] VITALS (14 sets, daily range): BP systolic 119–176; BP diastolic 68–102; PULSE 87–112; RESP 12–22; TEMP 36.1–36.4; O2SAT 91–98
[2022-01-05] MEDS: NEOMYCIN SULFATE 500 MG TAB 1000 MG PO ×2 (00:52→06:46)
[2022-01-05] MEDS: HYDROmorphone HCL INJ (*CRX) 1 MG/ML SYR 0.5 MG IV PUSH ×2 (00:56→05:59)
[2022-01-05] MEDS: ERYTHROMYCIN 250 MG TABLET 1000 MG PO ×2 (00:58→06:46)
[2022-01-05] MEDS: metroNIDAZOLE 500 MG/ISO 100ML 500 MG/100 ML BAG 100 MG IVPB ×4 (02:07→20:36)
[2022-01-05] MEDS: SODIUM CHLORIDE 0.9% IV 1,000 ML 125 ML IV CONT (02:09)
[2022-01-05] MEDS: METOCLOPRAMIDE HCL INJ 10 MG/2 ML VIAL 5 MG IV PUSH ×3 (05:56→23:42)
[2022-01-05 06:23] LABS: Basophils Percent Auto 0.3 % (0.2-1.2); Eosinophils Percent Auto 0.2 % (0-4.4); Hematocrit 41.8 % (42.0-52.0); Hemoglobin 13.7 g/dL (14.0-18.0); Immature Granulocyte Absolute 0.04 K/mm3 (0.00-0.031); Immature Granulocyte Percent A 0.4 % (0-0.5); Lymphocytes Absolute Auto 1.38 K/mm3 (0.9-3.2); Mean Corpuscular HGB Conc 32.8 g/dl (32-36); Mean Corpuscular Volume 91.5 fl (80-100); Mean Platelet Volume 9.9 fl (7.4-10.4); Monocytes Percent Auto 9.9 % (2.6-8.5); Neutrophils Absolute Auto 7.4 K/mm3 (1.3-6.7); Neutrophils Percent Auto 75.2 % (45.5-73.1); Platelet Count Result 303 k/mm3 (150-375); Red Blood Count 4.57 M/mm3 (4.6-6.20); Red Cell Distribution Width 14.1 % (11.5-14.5); White Blood Count 9.9 K/mm3 (4.5-10.0)
[2022-01-05 06:31] LABS: Alanine Aminotransferase 14 U/L (6-50); Albumin Level 3.5 g/dL (3.5-5.1); Alkaline Phosphatase 84 U/L (38-126); Anion Gap 8 mmol/L (8-16); Aspartate Amino Transferase 23 U/L (17-59); Bilirubin,Total 0.6 mg/dL (0.2-1.3); Blood Urea Nitrogen 8 mg/dL (9-20); Calcium 8.6 mg/dL (8.4-10.2); Carbon Dioxide 25 mmol/L (22-30); Chloride 100 mmol/L (98-107); Estimated CRCL calculation 194 ml/min; Estimated Glomerular Filt Rate > 60; Glucose 126 mg/dL (65-110); Magnesium 1.8 mg/dL (1.6-2.3); Potassium 3.9 mmol/L (3.4-5.0); Sodium 133 mmol/L (137-145)
--- NOTE | 2022-01-05 07:47 | PM.IMPN ---
Progress Note: A&P Assessment and Plan (1) Bowel obstruction: Qualifiers: Intestinal obstruction extent: unspecified extent Intestinal obstruction type: unspecified Qualified Code(s): K56.609 - Unspecified intestinal obstruction, unspecified as to partial versus complete obstruction Code(s): K56.609 - Unspecified intestinal obstruction, unspecified as to partial versus complete obstruction Status: Acute Assessment and Plan: - NG tube has been removed. -slow bowel prep has been started as per Dr. Tirado. - On schedule for Sigmoid colectomy for Wednesday with Dr. Tirado. - Will have slow clean out over the weekend. - Encourage ambulation. -there are increased bowel sounds today on assessment. Seems to be resolved as there is less out the NG before it was removed yesterday and now we know the colonoscope can fit through the area of narrowing in the sigmoid colon. Patient however is still feeling occasionally bloated. He has tolerated the NG out for the last 24 hours. I have put him on routine Q 6 our scheduled doses of Reglan to see if that will help empty the small bowel. I believe this is safe now that we know that he does not have a complete obstruction in the area of his sigmoid. Will do repeat abdominal plain films tomorrow morning. This is because it would be good to know if he has significantly dilated bowel just at of surgery. (2) Obesity (BMI 30-39.9): Code(s): E66.9 - Obesity, unspecified Status: Chronic Assessment and Plan: - Pt. will need eventual education at some point during his hospitalization for lifestyle modifications. (3) History of diverticulitis of colon: Code(s): Z87.19 - Personal history of other diseases of the digestive system Status: Chronic Assessment and Plan: - Flex Sigmoidoscopy yesterday without any overt signs of acute Diverticulitis. - Pt. without diarrhea or pain. - Concern for possible Chronic DIVERTICULOSIS that has potentially been a causative factor for patient. - Plan to be made by surgery for management. (4) Obstructive sleep apnea: Code(s): G47.33 - Obstructive sleep apnea (adult) (pediatric) Status: Chronic Assessment and Plan: - Continue to defer in light of NG tube in place. Will start using CPAP once his NG tube is out. (5) Stricture of sigmoid colon: Onset Date: Unknown Code(s): K56.699 - Other intestinal obstruction unspecified as to partial versus complete obstruction Status: Chronic Assessment and Plan: See sigmoid /colonoscopy report. I have had a thorough discussion with the patient, his significant other ( baldemar ) and mother. I recommended that we continue with the slow colon clean out over the weekend. Await biopsies done today at the time of his sigmoid examination with the colonoscope. And then consider proceeding with a hand assisted laparoscopic sigmoid colectomy with anastomosis, possible open, possible colostomy, or diverting ileostomy. At this time and previously I have discussed the risks, benefits, and possible complications of such a procedure. Patient has now been marked by our ostomy nurses at sites ideal for ostomies if needed. These include bleeding, infection, possible leak from the anastomosis, possible injury to surrounding organs such as the left ureter posterior to the area of inflammation. Also, medical complications such as pneumonia heart attack or stroke have been discussed. We will allow him to have clear liquids through this time while were waiting for the biopsy reports. (I talked to our pathologist Wednesday late and preliminary report shows no signs of tumor ). Will also have him take some surgery Ensure for nutrition. (Apparently nutrition department is giving the nurses trouble trying to get this up for him). I have encouraged him to rotate between laying in bed, plugging the NG getting up and walking, and sitting in the chair
[2022-01-05] MEDS: FAMOTIDINE 20 MG/2 ML VIAL IV PUSH ×2 (09:04→20:35)
--- NOTE | 2022-01-05 09:51 | WPDANESEFPP ---
Anes - Eval Final PreProcedure Day of Procedure 01/05/22 09:51 Patient weight: obese Heart: regular rate and rhythm Lungs: decreased breath sounds Airway: Mallampati scale class II Neurological: alert and oriented Last oral intake: >/= 8 hours ASA classification: III Emergent: no Anesthetic plan: proceed Anesthesia type and monitoring: general ETT and standard monitoring Results Review: All pre-operative results and documents have been reviewed as part of the pre-operative evaluation. Informed Consent: The patient's anesthetic plan and its attendant risks and benefits were discussed with the patient/family/POA. Questions were solicited and answers provided to the satisfaction of the patient/family/POA.
[2022-01-05] MEDS: ALVIMOPAN 12 MG CAPSULE PO (10:01)
[2022-01-05] MEDS: ACETAMINOPHEN 500 MG TABLET 1000 MG PO (10:03)
[2022-01-05] MEDS: LACTATED RINGERS 1,000 ML 30 ML IV CONT ×2 (10:05→18:19)
[2022-01-05] MEDS: KETOROLAC 15 MG/ML VIAL (*BKC) IV PUSH (10:06)
--- NOTE | 2022-01-05 10:37 | P.HPUP_ITS ---
History and Physical Update Update Date/Time: 01/05/22 10:37 History and Physical has been reviewed, including an updated exam of the patient. There are changes in the patient's condition. Since his admission H and P he has been in the hospital. He has had a sigmoidoscopy which was able to pass the area of narrowing in the sigmoid colon. He has been able to tolerate a least partial prepped x2 and has been able to take antibiotic doses p.o. to give colon cleansing. He has been NPO except for clear liquids for several days. The area of stenosis was marked with Beverly ink at his sigmoidoscopy last week. He continues on IV antibiotics since admission. Biopsies done at time of co lonoscopy reveal inflammation no signs of tumor. Risks, benefits, and alternatives have been discussed and questions answered. Patient agrees to proceed with procedure.
[2022-01-05] MEDS: LIDO 2%/EPINEPHRINE 1:100,000 20 ML VIAL 40 ML INFILTRATE (14:28)
--- NOTE | 2022-01-05 18:21 | PM.IMPN ---
Progress Note: A&P Assessment and Plan (1) Bowel obstruction: Qualifiers: Intestinal obstruction extent: unspecified extent Intestinal obstruction type: unspecified Qualified Code(s): K56.609 - Unspecified intestinal obstruction, unspecified as to partial versus complete obstruction Code(s): K56.609 - Unspecified intestinal obstruction, unspecified as to partial versus complete obstruction Status: Acute Assessment and Plan: - NG tube has been removed. -S/P bowel prep has been started as per Dr. Tirado. - s/p Sigmoid colectomy 01/05/[address] Tirado. - Will have slow clean out over the weekend. - Encourage ambulation. -pain control IV antibiotics (2) Obesity (BMI 30-39.9): Code(s): E66.9 - Obesity, unspecified Status: Chronic Assessment and Plan: - lifestyle modifications. (3) History of diverticulitis of colon: Code(s): Z87.19 - Personal history of other diseases of the digestive system Status: Chronic Assessment and Plan: - Flex Sigmoidoscopy without any overt signs of acute Diverticulitis. - Pt. without diarrhea or pain. - Concern for possible Chronic DIVERTICULOSIS that has potentially been a causative factor for patient. - as above (4) Obstructive sleep apnea: Code(s): G47.33 - Obstructive sleep apnea (adult) (pediatric) Status: Chronic Assessment and Plan: - cpap. (5) Stricture of sigmoid colon: Onset Date: Unknown Code(s): K56.699 - Other intestinal obstruction unspecified as to partial versus complete obstruction Status: Chronic Assessment and Plan: surgery following ,follow on biopsy results (6) Diverticulitis: Onset Date: ~11/2021 Code(s): K57.92 - Diverticulitis of intestine, part unspecified, without perforation or abscess without bleeding Status: Acute Assessment and Plan: Patient has some element of chronic inflammation in the area of the sigmoid just above the rectosigmoid junction by CT. We are continuing the IV antibiotics to cover for possible micro perforation in the area . (7) Tobacco abuse: Code(s): Z72.0 - Tobacco use Status: Chronic Assessment and Plan: Patient using a nicotine patch in the hospital Subjective Date/time seen: 01/05/22 18:21 Interval history: 46-year-old male smoker with history of diverticulitis admitted for bowel obstruction. currently on iv antibiotics , had surgical intervention today tolerated well patient feels better today still c/o abdominal pain d/w the surgeon continue iv antibiotics I'm seeing the patient for SBO Exam Const: General: cooperative and comfortable Eyes: General: appearance normal, both eyes and all related structures Neck: Neck: normal visual inspection Chest: Chest palpation & inspection: normal inspection of the chest and normal palpation of entire chest wall Breast/axilla inspection: normal inspection of the breasts and normal inspection of the axillae Resp: Effort & Inspection: normal respiratory effort, able to speak in complete sentences, normal respiratory pattern, no audible wheezes, respiratory effort not decreased, no grunting, not labored, no nasal flaring and no use of accessory muscles Auscultation: clear to auscultation bilaterally, normal I/E ratio, no crackles and no rales Cardio: Jugular venous distension: no JVD Palpation: normal PMI Rate: regular rate Rhythm: regular rhythm Heart sounds: S1 normal heart sound present GI: Inspection: distended GI Palp: Yes abdominal tenderness Percussion: Yes normal to percussion Objective Data Vital Signs Vital Signs: Vital Signs - 24 hr 01/04/22 19:24 01/04/22 20:00 01/05/22 05:28 Temperature 97.7 F 97.2 F L Pulse Rate 99 99 95 Respiratory Rate 18 18 16 Blood Pressure 149/96 H 144/89 H Pulse Oximetry 94 94 94 01/05/22 09:56 Temperature 97 F L Pulse Rate 87 Respiratory Rate 20
--- NOTE | 2022-01-05 18:23 | W.PM.PROC2 ---
Procedure Note - Detailed Date of Procedure 01/06/22 Pre-op Diagnosis Sigmoid Colon Diverticular Stricture Post-op Diagnosis Same Procedure Performed Hand assisted laparoscopic sigmoid colon resection with anastomosis Surgeon Loki Tirado MD [employer] [facility] [place], [employer] Anesthesia General Indications Patient had a chronic diverticular stricture approximately 25-3 cm from the anal verge in the distal sigmoid colon due to previous repeat episodes of diverticulitis. He was now on his 2nd admission in the last month for relative near total obstruction secondary to this stricture. Findings Patient had a very fibrotic twisted distal sigmoid colon right at the pelvic brim. Description of Procedure Hand assited Laparoscopic left Sigmoid colectomy with anastamosis The patient was seen in the preop area. The suprapubic area marked for the site of possible hand assist incision. I again went over the risks, benefits, and possible complications of surgery with the patient. We went over the results of the prep. I confirmed the patient had received Entereg. Following this the patient was brought to the operating room and placed on the operating table and secured to the table with a wade bag padding the back and securing the shoulders. The patiient was placed in the low lithotomy position with the legs in the Phillip stirrups. Saunders catheter was then placed. An OG tube was then placed. Following this 1 L of NS irrigant was used to irrigate out the rectum using a Malenkaut catheter. Betadine was then infused into this catheter using approximately 500 cc. This was allowed to run back out. The catheter was then left in place in the distal rectum and connected to a Saunders bag. Following this the abdomen was prepped and draped in usual sterile fashion sterile fashion. The perineum was prepped with Betadine. An under the buttocks and leg drapes were applied followed by 4 towels and then the laparotomy / laparoscopy drape applied. This exposed nicely the entire abdomen. Following this time-out was performed with the OR staff. This confirmed patient and site of proposed surgery as the abdomen. Following this local anesthetic was infiltrated into a transverse incision marked out 2 fingerbreadths above the level of the pubic bone. This was centered on the midline. It was approximately 10 cm in length. Following this an incision was made and carried down to the fascia overlying the rectus sheath in this area. The anterior rectus sheath was incised the length of this incision transversely. Following this three Macy's were placed on the upper side of the cut edge of the rectus. I then carefully dissected the rectus fascia off the underlying rectus muscles up to about fdc from the incision to the umbilicus. This nicely exposed the fatty midline. Following this I also placed the Allis's on the fascia inferiorly and dissected approximately 3 cm inferiorly underneath the rectus sheath. Following this we tented up the midline fat with two DeBakey forceps and carefully entered the midline under direct vision. I then put my finger in the peritoneum and incised the peritoneum cephalad and inferiorly about an 8 cm length. This was our 1st entry into the abdomen and there was no significant adhesions under this incision. I swept my finger completely circumferentially underneath the abdominal wall and there were no significant adhesions. Following this the wound protector of the laparoscopic hand port was placed into the abdomen and then carefully rotated down to secure the hand port in place and protect the edges of the wound. I then placed my right hand through wound protector and placed it up in underneath the area of the umbilicus. There were no adhesions in this area. A vertical incision was outlined in the crease just above the umbilicus and local anesthetic infused. Then an 11 blade knife was made to make a 12 mm incision just superior t
[2022-01-05] MEDS: fentaNYL CITRATE INJ (*CRX) 100 MCG/2 ML VIAL 25 MCG IV PUSH ×2 (19:04→19:08)
[2022-01-05] MEDS: LABETALOL HCL INJ 100 MG/20 ML VIAL 10 MG IV PUSH (19:09)
[2022-01-05] MEDS: NICOTINE (*PBKC) 21 MG PATCH 1 PATCH TRANSDERM (20:34)
[2022-01-05] MEDS: MORPHINE SULFATE (*CRX) 2 MG/ML INJ IV PUSH ×2 (20:42→23:41)
[2022-01-06] VITALS (8 sets, daily range): BP systolic 120–148; BP diastolic 81–90; PULSE 101–114; RESP 16–18; TEMP 35.9–36.7; O2SAT 94–98; BMI 39.9
[2022-01-06] MEDS: SODIUM CHLORIDE 0.9% IV 1,000 ML 125 ML IV CONT (01:09)
[2022-01-06] MEDS: MORPHINE SULFATE (*CRX) 4 MG/ML INJ IV PUSH ×3 (01:09→05:59)
[2022-01-06] MEDS: metroNIDAZOLE 500 MG/ISO 100ML 500 MG/100 ML BAG 100 MG IVPB ×4 (02:25→20:54)
[2022-01-06 05:44] LABS: Basophils Percent Auto 0.1 % (0.2-1.2); Hematocrit 36.8 % (42.0-52.0); Hemoglobin 12.2 g/dL (14.0-18.0); Immature Granulocyte Absolute 0.07 K/mm3 (0.00-0.031); Immature Granulocyte Percent A 0.5 % (0-0.5); Lymphocytes Absolute Auto 0.99 K/mm3 (0.9-3.2); Lymphocytes Percent Auto 6.9 % (18.3-44.2); Mean Corpuscular HGB Conc 33.2 g/dl (32-36); Mean Corpuscular Hemoglobin 30.1 pg (26-34); Mean Corpuscular Volume 90.9 fl (80-100); Mean Platelet Volume 9.9 fl (7.4-10.4); Monocytes Absolute Auto 1.4 K/mm3 (0.1-0.6); Monocytes Percent Auto 9.9 % (2.6-8.5); Neutrophils Absolute Auto 11.8 K/mm3 (1.3-6.7); Neutrophils Percent Auto 82.6 % (45.5-73.1); Platelet Count Result 281 k/mm3 (150-375); Red Blood Count 4.05 M/mm3 (4.6-6.20); Red Cell Distribution Width 14.6 % (11.5-14.5); White Blood Count 14.3 K/mm3 (4.5-10.0)
[2022-01-06 05:55] LABS: Anion Gap 5 mmol/L (8-16); Blood Urea Nitrogen 9 mg/dL (9-20); Calcium 7.5 mg/dL (8.4-10.2); Carbon Dioxide 28 mmol/L (22-30); Chloride 99 mmol/L (98-107); Estimated CRCL calculation 198 ml/min; Estimated Glomerular Filt Rate > 60; Glucose 160 mg/dL (65-110); Potassium 4.1 mmol/L (3.4-5.0); Sodium 132 mmol/L (137-145)
[2022-01-06] MEDS: METOCLOPRAMIDE HCL INJ 10 MG/2 ML VIAL 5 MG IV PUSH ×3 (05:56→17:07)
--- NOTE | 2022-01-06 07:47 | P.PNAN_ITS ---
Anes - Prog Note Post-Op Date/Time: 01/06/22 07:47 Cardiovascular status: normal Respiratory status: normal Airway patency: baseline Mental status: baseline Post-Op hydration status: normal Vital Signs: Last Vital Signs Temp 35.9 C L 01/06/22 05:32 Pulse 104 H 01/06/22 05:32 Resp 18 01/06/22 05:32 BP 147/90 H 01/06/22 05:32 Pulse Ox 97 01/06/22 05:32 Pain Score (VAS): 3 I/O: Intake & Output 01/05/22 01/05/22 01/06/22 15:59 23:59 07:59 Intake Total 1100 900 690 Output Total 415 1240 Balance 1100 485 -550 Laboratory Tests 01/06/22 05:25 01/06/22 05:25 01/06/22 01/06/22 05:25 05:25 WBC 14.3 H RBC 4.05 L Hgb 12.2 L Hct 36.8 L MCV 90.9 MCH 30.1 MCHC 33.2 RDW 14.6 H Plt Count 281 MPV 9.9 Immature Gran % (Auto) 0.5 Neut % (Auto) 82.6 H Lymph % (Auto) 6.9 L [place] % (Auto) 9.9 H Eos % (Auto) 0.0 Baso % (Auto) 0.1 L Lymph # (Auto) 0.99 [place] # (Auto) 1.4 H Eos # (Auto) 0.0 Baso # (Auto) 0.0 Abs Immat Gran (auto) 0.07 H Absolute Neuts (auto) 11.8 H Absolute Nucleated RBC 0.0 Nucleated RBC % 0.0 Sodium 132 L Potassium 4.1 Chloride 99 Carbon Dioxide 28 Anion Gap 5 L BUN 9 Creatinine 0.60 L Estim Creat Clear Calc 198 Estimated GFR > 60 Glucose 160 H Calcium 7.5 L Post-procedural complaints: none Patient Feedback: Patient satisfied with anesthetic care.
--- NOTE | 2022-01-06 08:07 | PM.PNGS ---
Progress Note: A&P Assessment and Plan (1) Stricture of sigmoid colon: Onset Date: Unknown Code(s): K56.699 - Other intestinal obstruction unspecified as to partial versus complete obstruction Status: Chronic Assessment and Plan: Doing well postop day # 1 status post laparoscopic hand assisted resection of the segment that was strictured. Await pathology. Patient tolerating sips of clears. Will await 1st flatus or bowel movement to advance diet much. Encourage patient to be out of bed moving. On DVT prophylaxis. (2) Diverticulitis: Onset Date: ~11/2021 Code(s): K57.92 - Diverticulitis of intestine, part unspecified, without perforation or abscess without bleeding Status: Acute Assessment and Plan: No other specific problematic areas of diverticulitis noted along the left colon time of surgery. Time Spent With Patient Time: since patient tolerating diet slow down spoke with nurse several times about patient mobilization. Checked back on the patient again this afternoon and he had several loose stools without blood, was not nauseated and therefore advanced his diet to full liquids. Change his Reglan from scheduled to p.r.n. since he is not nauseated now. Subjective Subjective Date/Time Seen: 01/06/22 08:07 Post Op day: 1 (Doing well) Patient reports: no new complaints, no flatus and no bowel movement Interval history: patient lying in bed when I entered the room. Nurse reports he had a good urine output overnight. Patient is not nauseated. He is tolerating sips of liquids. Review of Systems Review of Systems: All systems reviewed & are unremarkable except as noted in HPI and below Constitutional: Constitutional: Reports as per HPI, Denies chills and Denies fever(s) Cardiovascular: Cardiovascular: Denies chest pain and Denies dyspnea Respiratory: Respiratory: Reports no additional respiratory complaints and Denies dyspnea Gastrointestinal: Gastrointestinal: Reports as per HPI and Denies bloating Musculoskeletal: Musculoskeletal: Reports no additional musculoskeletal complaints Neurologic: Denies memory loss Psychiatric: Psychiatric: Denies anxiety and Denies memory loss Exam Const: General: cooperative, comfortable, alert and awake Orientation/consciousness: patient oriented x3 HENMT: Head: normal to inspection Mouth: Yes moist mucous membranes Eyes: Sclera: sclerae normal Pupils: Equal, round and reactive pupils present Neck: Neck: normal visual inspection and no JVD Chest: Chest palpation & inspection: normal inspection of the chest Resp: Effort & Inspection: normal respiratory effort Auscultation: clear to auscultation bilaterally Cardio: Jugular venous distension: no JVD Rate: regular rate GI: Inspection: normal to inspection and incision ( Clean and dry with surgical glue in place.) Auscultation: normoactive bowel sounds Rectal Exam: deferred Neuro: General: patient oriented x3 Cranial nerves: Yes Equal, round and reactive pupils present Objective Data Vital Signs Vital Signs: Vital Signs - 24 hr 01/05/22 09:56 01/05/22 18:19 01/05/22 18:35 Temperature 36.1 C L 36.3 C L Pulse Rate 87 112 H 107 H Respiratory Rate 20 12 20 Blood Pressure 137/87 158/95 H 160/94 H Pulse Oximetry 95 97 97 01/05/22 18:50 01/05/22 19:05 01/05/22 19:09 Temperature 36.4 C Pulse Rate 105 H 103 H 100 Respiratory Rate 22 H 21 H Blood Pressure 176/102 H 173/100 H Pulse Oximetry 96 91 01/05/22 19:20 01/05/22 19:35 01/05/22 20:00 Temperature Pulse Rate 95 95 96 Respiratory Rate 16 16 18 Blood Pressure 119/68 141/87 H Pulse Oximetry 96 95 96 01/05/22 20:55 01/05/22 21:44 01/05/22 22:54 Temperature 36.3 C L 36.3 C L Pulse Rate 96 98 Respiratory Rate 18 20 Blood Pressure 163/92 H 167/93 H 140/89 Pulse Oximetry 96 98 01/05/22 22:55 01/06/22 01:32 01/06/22 02:43 Temperature 36.4 C Pulse Rate 95 110 H 101 H Respiratory
[2022-01-06] MEDS: ALVIMOPAN 12 MG CAPSULE PO ×2 (08:49→20:54)
[2022-01-06] MEDS: FAMOTIDINE 20 MG/2 ML VIAL IV PUSH ×2 (08:49→20:54)
[2022-01-06] MEDS: ENOXAPARIN 40 MG/0.4 ML SYRINGE SUB-Q (08:49)
[2022-01-06] MEDS: HYDROcodone/acetaminophen (*CRX) 7.5-325 MG TABLET 1 TAB PO ×3 (09:04→19:52)
--- NOTE | 2022-01-06 09:36 | PM.IMPN ---
Progress Note: A&P Assessment and Plan (1) Bowel obstruction: Qualifiers: Intestinal obstruction extent: unspecified extent Intestinal obstruction type: unspecified Qualified Code(s): K56.609 - Unspecified intestinal obstruction, unspecified as to partial versus complete obstruction Code(s): K56.609 - Unspecified intestinal obstruction, unspecified as to partial versus complete obstruction Status: Acute Assessment and Plan: - POD #1 s/p Sigmoid colectomy by Dr. Tirado - Will have slow clean out over the weekend. - Encourage ambulation. -pain control IV antibiotics (2) Obesity (BMI 30-39.9): Code(s): E66.9 - Obesity, unspecified Status: Chronic Assessment and Plan: - lifestyle modifications. (3) History of diverticulitis of colon: Code(s): Z87.19 - Personal history of other diseases of the digestive system Status: Chronic Assessment and Plan: - Flex Sigmoidoscopy without any overt signs of acute Diverticulitis. - Pt. without diarrhea or pain. - Concern for possible Chronic DIVERTICULOSIS that has potentially been a causative factor for patient. - as above (4) Obstructive sleep apnea: Code(s): G47.33 - Obstructive sleep apnea (adult) (pediatric) Status: Chronic Assessment and Plan: - cpap. (5) Stricture of sigmoid colon: Onset Date: Unknown Code(s): K56.699 - Other intestinal obstruction unspecified as to partial versus complete obstruction Status: Chronic Assessment and Plan: - No evidence of neoplasm per pathology report (6) Diverticulitis: Onset Date: ~11/2021 Code(s): K57.92 - Diverticulitis of intestine, part unspecified, without perforation or abscess without bleeding Status: Acute Assessment and Plan: - continue IV antibiotics per surgery. (7) Tobacco abuse: Code(s): Z72.0 - Tobacco use Status: Chronic Assessment and Plan: - Patient using a nicotine patch in the hospital Time Spent With Patient Time with patient: 15 - 25 minutes Subjective Date/time seen: 01/06/22 09:36 This pt. was examined at the bedside in interval assessment. He is currently POD#1 of a sigmoid colectomy by Dr. Tirado. The pt is resting quietly in bed upon my entry into the room. He has no acute signs of distress and denies any Nausea or vomiting. He does have some post-operative pain present. He denies any new complaints today of chest pain, dyspnea, urinary complaints. Review of Systems Review of Systems: All systems reviewed & are unremarkable except as noted in HPI and below Exam Const: General: no acute distress Other: Patient endorses incisional pain. HENMT: Mouth: Yes moist mucous membranes Eyes: Sclera: sclerae normal Neck: Neck: supple and no JVD Lymphatic: lymphadenopathy not noted Resp: Effort & Inspection: normal respiratory effort Auscultation: clear to auscultation bilaterally Cardio: Rate: regular rate Rhythm: regular rhythm GI: Inspection: non-distended GI Palp: Yes Soft to palpation and Yes Tenderness to palpation present (GI) Auscultation: abnormal bowel sounds ( Absent currently) Urinary Catheter: Urinary Catheter: patent and draining and urine dark Skin: General skin exam: normal color and no rashes or lesions noted Other: 3 horizontal incisions to the lower abdomen. One with drain placement a left lower. Surrounding skin is without any signs of acute infection. No drainage. Skin glue intact. Neuro: Cognition (Neuro): normal cognition Speech: normal speech Sensory Exam: normal sensation Extrem: General: normal to inspection Psych: Mental Status: mental status grossly normal Thought content: Yes Normal thought content present Objective Data Vital Signs Vital Signs: Vital Signs - 24 hr 01/05/22 09:56 01/05/22 18:19 01/05/22 18:35 Temperature 97 F L 97.3 F L Pulse Rate 87 112 H 107 H Respirator
[2022-01-06] MEDS: MORPHINE SULFATE (*CRX) 2 MG/ML INJ IV PUSH (11:30)
[2022-01-06] MEDS: SODIUM CHLORIDE 0.9% IV 1,000 ML 90 ML IV CONT (16:08)
[2022-01-06] MEDS: NICOTINE (*PBKC) 21 MG PATCH 1 PATCH TRANSDERM (17:08)
[2022-01-07] MEDS: HYDROcodone/acetaminophen (*CRX) 7.5-325 MG TABLET 1 TAB PO ×3 (01:42→13:52)
[2022-01-07] MEDS: metroNIDAZOLE 500 MG/ISO 100ML 500 MG/100 ML BAG 100 MG IVPB ×3 (02:28→14:11)
[2022-01-07 03:41] VITALS: BP 126/81; PULSE 107; RESP 18; TEMP 36.6; O2SAT 95
[2022-01-07 06:16] LABS: Basophils Percent Auto 0.2 % (0.2-1.2); Eosinophils Percent Auto 0.2 % (0-4.4); Hematocrit 34.8 % (42.0-52.0); Hemoglobin 11.5 g/dL (14.0-18.0); Immature Granulocyte Absolute 0.16 K/mm3 (0.00-0.031); Lymphocytes Absolute Auto 1.73 K/mm3 (0.9-3.2); Lymphocytes Percent Auto 10.5 % (18.3-44.2); Mean Corpuscular Hemoglobin 30.1 pg (26-34); Mean Corpuscular Volume 91.1 fl (80-100); Mean Platelet Volume 10.2 fl (7.4-10.4); Monocytes Absolute Auto 2.1 K/mm3 (0.1-0.6); Neutrophils Absolute Auto 12.4 K/mm3 (1.3-6.7); Neutrophils Percent Auto 75.1 % (45.5-73.1); Platelet Count Result 258 k/mm3 (150-375); Red Blood Count 3.82 M/mm3 (4.6-6.20); Red Cell Distribution Width 14.8 % (11.5-14.5); White Blood Count 16.5 K/mm3 (4.5-10.0)
[2022-01-07 06:23] LABS: Alanine Aminotransferase 12 U/L (6-50); Albumin Level 2.7 g/dL (3.5-5.1); Alkaline Phosphatase 69 U/L (38-126); Anion Gap 3 mmol/L (8-16); Aspartate Amino Transferase 22 U/L (17-59); Bilirubin,Total 0.6 mg/dL (0.2-1.3); Blood Urea Nitrogen 6 mg/dL (9-20); Calcium 7.6 mg/dL (8.4-10.2); Carbon Dioxide 32 mmol/L (22-30); Chloride 96 mmol/L (98-107); Estimated CRCL calculation 169 ml/min; Estimated Glomerular Filt Rate > 60; Glucose 111 mg/dL (65-110); Magnesium 1.7 mg/dL (1.6-2.3); Potassium 3.4 mmol/L (3.4-5.0); Sodium 131 mmol/L (137-145)
[2022-01-07] MEDS: ENOXAPARIN 40 MG/0.4 ML SYRINGE SUB-Q (08:06)
[2022-01-07] MEDS: ALVIMOPAN 12 MG CAPSULE PO (08:06)
[2022-01-07] MEDS: FAMOTIDINE 20 MG/2 ML VIAL IV PUSH (08:06)
--- NOTE | 2022-01-07 11:56 | PM.DS ---
DS: Admitting Diagnosis Discharge Date 01/07/22 Admitting Diagnosis bowel obstruction DS: Discharge Diagnosis Discharge Diagnosis (1) Bowel obstruction: Qualifiers: Intestinal obstruction extent: unspecified extent Intestinal obstruction type: unspecified Qualified Code(s): K56.609 - Unspecified intestinal obstruction, unspecified as to partial versus complete obstruction Code(s): K56.609 - Unspecified intestinal obstruction, unspecified as to partial versus complete obstruction Status: Acute Assessment and Plan: - POD # 2 s/p Sigmoid colectomy by Dr. Tirado -management per surgery -tolerating low fat diet without difficulty, ELOISA drain with serosanginous drainage -having BMs, pain minimal -discussed with Dr. Tirado who states patient is ready for discharge. Increasing WBC noted, no fevers or other signs of acute infection. We will have him return to lab in 2 days for repeat CBC and f/u w/ Dr. Tirado on Wednesday or Wednesday of next week to have the ELOISA drain removed. (2) Obesity (BMI 30-39.9): Code(s): E66.9 - Obesity, unspecified Status: Chronic Assessment and Plan: - lifestyle modifications. (3) History of diverticulitis of colon: Code(s): Z87.19 - Personal history of other diseases of the digestive system Status: Chronic Assessment and Plan: - Flex Sigmoidoscopy without any overt signs of acute Diverticulitis. - Concern for possible Chronic diverticulosis that has potentially been a causative factor for patient. - as above (4) Obstructive sleep apnea: Code(s): G47.33 - Obstructive sleep apnea (adult) (pediatric) Status: Chronic Assessment and Plan: -CPAP (5) Stricture of sigmoid colon: Onset Date: Unknown Code(s): K56.699 - Other intestinal obstruction unspecified as to partial versus complete obstruction Status: Chronic Assessment and Plan: -No evidence of neoplasm per pathology report (6) Diverticulitis: Onset Date: ~11/2021 Code(s): K57.92 - Diverticulitis of intestine, part unspecified, without perforation or abscess without bleeding Status: Acute Assessment and Plan: -IV antibiotics x8 days, per surgery discontinue abx on discharge (7) Tobacco abuse: Code(s): Z72.0 - Tobacco use Status: Chronic Assessment and Plan: - Patient using a nicotine patch in the hospital DS: Summary Hospital Course Reason for hospitalization: 46-year-old male smoker with history of diverticulitis admitted for bowel obstruction. Please see HPI for further details. Hospital Course: Please see above for details of hospital course. Time spent discussing smoking cessation with patient: more than 10 minutes Status at Discharge Cognitive/behavioral status at discharge: stable Functional status at discharge: independent ambulation Overall status at discharge: patient is progressing back to baseline Time Spent with Patient Time attestation: Total time spent providing and/or coordinating discharge services: 35 Time spent: Greater than 30 minutes Exam Narrative: General: No acute distress, non toxic appearing, obese Eyes: PERRL, no scleral icterus HEENT: NCAT, external ears normal, MMM Respiratory: No respiratory distress, Lungs CTA bilaterally, no wheezing Cardiovascular: RRR, no murmur Abdominal: Soft, mild lower abdominal ttp, non distended, no rebound or guarding, incisions c/d/i Musculoskeletal: Moves all 4 extremities, no edema Neurological: A/Ox3, speech clear, no facial asymmetry Skin: Warm, dry, no rashes Psychiatric: Normal affect, normal mood DS: Data Data Completed and Pending Completed studies during hospitalization: Pending at discharge 01/01/22 13:16 Surgical [PTH] Routine Pending studies at discharge: Pending at discharge 01/05/22 16:24 Surgical [PTH] Routine Surgical [
[2022-01-07 14:55] VITALS: BP 120/79; PULSE 106; RESP 18; TEMP 36.7; O2SAT 96
== END 2022-01-07 16:00 | disposition home or self-care (01) | DRG 330 ==
LOC: ANHED 12-30 02:42 → ANH2MED 12-30 03:08
PROVIDERS: Emergency Medicine; Internal Medicine Gastroenterology; Nurse Practitioner Adult Health; Student in an Organized Health Care Education/Training Program; Surgery; Admitting Provider Internal Medicine; Emergency Provider Nurse Practitioner Family; PCP Internal Medicine; Visit Provider Family Medicine
PROC: 0DJD8ZZ Inspection of Lower Intestinal Tract, Via Natural or Artificial Opening Endoscopic (ICD-10-PCS; CPT 45330; principal; 2022-01-01 13:00)
PROC: 0D1E4Z4 Bypass Large Intestine to Cutaneous, Percutaneous Endoscopic Approach (ICD-10-PCS; principal; 2022-01-05 11:00)
DX: K56.600 Partial intestinal obstruction, unspecified as to cause (principal); K57.32 Diverticulitis of large intestine without perforation or abscess without bleeding; Z68.38 Body mass index [BMI] 38.0-38.9, adult; G47.33 Obstructive sleep apnea (adult) (pediatric); F17.210 Nicotine dependence, cigarettes, uncomplicated; E66.9 Obesity, unspecified; K64.8 Other hemorrhoids; K66.0 Peritoneal adhesions (postprocedural) (postinfection)
CPT/HCPCS: 36415; 74018; 74019; 74177; 80048; 80053; 81001; 83690; 83735; 84145; 85025; 86850; 86900; 86901; 88305; 88307; 96361; 96374; 96375; 99285; A9270; C1729; J0330; J1100; J1170; J1650; J1885; J1956; J2250; J2270; J2370; J2405; J2550; J2704; J2710; J2765; J3010; J7030; J7120; Q9967

== ENCOUNTER 2022-01-09 12:23 | Outpatient (CLI) | payer OTHER, SELFPAY ==
[2022-01-09 12:41] LABS: Basophils Absolute Auto 0.1 K/mm3 (0.0-0.1); Basophils Percent Auto 0.5 % (0.2-1.2); Eosinophils Absolute Auto 0.3 K/mm3 (0-0.3); Eosinophils Percent Auto 2.7 % (0-4.4); Hematocrit 36.5 % (42.0-52.0); Hemoglobin 11.5 g/dL (14.0-18.0); Immature Granulocyte Absolute 0.13 K/mm3 (0.00-0.031); Immature Granulocyte Percent A 1.2 % (0-0.5); Lymphocytes Absolute Auto 2.13 K/mm3 (0.9-3.2); Lymphocytes Percent Auto 19.7 % (18.3-44.2); Mean Corpuscular HGB Conc 31.5 g/dl (32-36); Mean Corpuscular Hemoglobin 29.7 pg (26-34); Mean Corpuscular Volume 94.3 fl (80-100); Mean Platelet Volume 9.2 fl (7.4-10.4); Monocytes Absolute Auto 1.5 K/mm3 (0.1-0.6); Monocytes Percent Auto 13.6 % (2.6-8.5); Neutrophils Absolute Auto 6.7 K/mm3 (1.3-6.7); Neutrophils Percent Auto 62.3 % (45.5-73.1); Platelet Count Result 326 k/mm3 (150-375); Red Blood Count 3.87 M/mm3 (4.6-6.20); Red Cell Distribution Width 15.2 % (11.5-14.5); White Blood Count 10.8 K/mm3 (4.5-10.0)
== END 2022-01-09 12:24 | disposition home or self-care (01) ==
LOC: ANHLAB 12:24
PROVIDERS: PCP Internal Medicine; Visit Provider Physician Assistant
DX: K56.699 Other intestinal obstruction unspecified as to partial versus complete obstruction (principal)
CPT/HCPCS: 36415; 85025

== ENCOUNTER 2022-01-16 08:06 | Outpatient (CLI) | payer OTHER, SELFPAY ==
--- NOTE | ~2022-01-16 | CT_ITS ---
EXAMINATION: CT abdomen pelvis w con DATE: 01/16/2022 08:34 INDICATION: Diverticulitis of large intestine with perforation post partial sigmoidectomy with primar y anastomosis presenting with increasing brownish fluid from the ELOISA drain post recent bowel movement. TECHNIQUE: Computed tomography (CT) of the abdomen and pelvis was performed with 75 mL Omnipaque-300 intravenous contrast. Automated exposure control and iterative reconstruction technique were employed . The dose-length product was 1425.53 mGy-cm. COMPARISON: 12/30/2021 FINDINGS: Heart size is normal. No pericardial or pleural effusion. Liver, gallbladder, pancreas, bilateral adr enal glands and kidneys are normal. Splenic ossifications consistent with old granulomatous disease. Bladder is normal. Small bowel and appendix are normal. Postoperative changes in the interval partial sigmoidectomy of the segment of thickened bowel wall seen on the prior CT. There is small amount of free intraperitoneal gas in the soft tissues immediately surrounding the anastomosis at the sigmoid c olon with some surrounding inflammatory stranding but no abscess. There appears to be at least partia l dehiscence of the anastomosis with a fairly substantial defect in the bowel wall. The tip of the ELOISA drain is positioned immediately adjacent to the defect. No pathologically enlarged abdominal or pelv ic lymphadenopathy. Mild thoracolumbar spondylosis. IMPRESSION: 1. Localized collection of intraperitoneal gas along side but appears be a likely at least partially dehiscent sigmoid anastomosis. Reviewed, dictated and finalized at location A. IMPRESSION: 1. Localized collection of intraperitoneal gas along side but appears be a like ly at least partially dehiscent sigmoid anastomosis.
== END 2022-01-16 08:07 | disposition home or self-care (01) ==
LOC: ANHIMG 08:07
PROVIDERS: PCP Internal Medicine; Visit Provider Surgery
DX: K57.20 Diverticulitis of large intestine with perforation and abscess without bleeding (principal)
CPT/HCPCS: 74177; Q9967

== ENCOUNTER 2022-01-16 12:57 | Outpatient (CLI) | payer OTHER, SELFPAY ==
--- NOTE | ~2022-01-16 | XR_ITS ---
EXAMINATION: XR enema water soluble DATE: 01/16/2022 13:58 INDICATION: Concern for bowel dehiscence and leak following partial sigmoidectomy with primary reanas tomosis for diverticulitis. TECHNIQUE: A 911 operator radiograph was obtained. A catheter was inserted into the patient's rectum. Water- soluble contrast was infused by gravity. Fluoroscopic spot images and conventional radiographs were o btained. Fluoroscopy exposure time was 1.5 minutes. A total of 19 fluoroscopic images and 4 overhead radiograph were obtained. COMPARISON: CT dated 01/16/2022 FINDINGS: There appears to be a small collection of extraluminal contrast at the site of a sigmoid anastomosis in the deep pelvis located near the tip of a ELOISA drain. Lucent filling defects are outlined by the con trast which appears to at least in part to feculent material potentially with gas bubbles. The majori ty of the contrast extends past the site of the leak into the more proximal sigmoid colon and descend ing colon. There is no more remote tracking of the contrast away from the site of the leak. No clearl y defined neck of contrast noted between the intraluminal and extraluminal contrast with appearance s uggesting a likely larger dehiscence at the anastomosis. Contrast is seen within the catheter and bul b of the ELOISA drain on the final images. Also seen on the final image is some subcutaneous gas at the l eft lower quadrant abdominal wall likely originating along the drainage catheter tract. IMPRESSION: 1. Likely dehiscence of a sigmoid colon anastomosis with contrast and feculent material accumulating within a contained leak. This drains via the ELOISA drain, the tip of which is located along side the shell stomosis. Reviewed, dictated and finalized at location A. IMPRESSION: 1. Likely dehiscence of a sigmoid colon anastomosis with contrast and feculent material accumulating within a contained leak. This drains via the ELOISA drain, th e tip of which is located along side the anastomosis.
[2022-01-16 14:34] LABS: Basophils Absolute Auto 0.1 K/mm3 (0.0-0.1); Basophils Percent Auto 0.5 % (0.2-1.2); Eosinophils Absolute Auto 0.1 K/mm3 (0-0.3); Eosinophils Percent Auto 1.5 % (0-4.4); Hematocrit 34.1 % (42.0-52.0); Hemoglobin 10.9 g/dL (14.0-18.0); Immature Granulocyte Absolute 0.06 K/mm3 (0.00-0.031); Immature Granulocyte Percent A 0.6 % (0-0.5); Lymphocytes Absolute Auto 1.73 K/mm3 (0.9-3.2); Lymphocytes Percent Auto 18.6 % (18.3-44.2); Mean Corpuscular Hemoglobin 30.4 pg (26-34); Mean Platelet Volume 9.5 fl (7.4-10.4); Monocytes Absolute Auto 1.1 K/mm3 (0.1-0.6); Monocytes Percent Auto 11.5 % (2.6-8.5); Neutrophils Absolute Auto 6.3 K/mm3 (1.3-6.7); Neutrophils Percent Auto 67.3 % (45.5-73.1); Platelet Count Result 437 k/mm3 (150-375); Red Blood Count 3.59 M/mm3 (4.6-6.20); Red Cell Distribution Width 14.6 % (11.5-14.5); White Blood Count 9.3 K/mm3 (4.5-10.0)
[2022-01-16 14:53] LABS: Alanine Aminotransferase 32 U/L (6-50); Albumin Level 3.7 g/dL (3.5-5.1); Alkaline Phosphatase 124 U/L (38-126); Anion Gap 5 mmol/L (8-16); Aspartate Amino Transferase 35 U/L (17-59); Bilirubin,Total 0.4 mg/dL (0.2-1.3); Blood Urea Nitrogen 19 mg/dL (9-20); CRP 7.4 mg/dL (<1.0); Calcium 8.3 mg/dL (8.4-10.2); Carbon Dioxide 30 mmol/L (22-30); Chloride 102 mmol/L (98-107); Estimated Glomerular Filt Rate > 60; Glucose 111 mg/dL (65-110); Potassium 4.5 mmol/L (3.4-5.0); Sodium 137 mmol/L (137-145)
== END 2022-01-16 12:58 | disposition home or self-care (01) ==
PROVIDERS: PCP Internal Medicine; Visit Provider Surgery
DX: K57.20 Diverticulitis of large intestine with perforation and abscess without bleeding (principal); T81.32XA Disruption of internal operation (surgical) wound, not elsewhere classified, initial encounter
CPT/HCPCS: 36415; 74270; 80053; 85025; 86140

== ENCOUNTER 2022-01-19 02:03 | Day surgery (SDC) | payer OTHER, SELFPAY ==
--- NOTE | 2022-01-16 15:26 | PCWOUND ---
WOCN NOTE Received order to esther both side of patient abdomen for possible ostomy placement sites. had patient sit, bend and lay down to determine best placement sites. Marked sites with black marker X and covered with tegaderm dressings. Did basic education on ostomy creation and care.
[2022-01-16 16:13] VITALS: BMI 36.6
--- NOTE | 2022-01-16 16:17 | SUR.PREOP ---
Report to the Outpatient Waiting Room, entrance under the green pavilion located off [facility], at time __11:00__ on date __01/19/22_. OR Time: __1300 . - You and your visitor will be asked a series of questions to screen for COVID 19 for your protection. - Only one visitor is allowed at this time. - The patient visitor is requested to leave or wait in car when not with patient. - A mask is required within the hospital. Patients may have clear liquids (water, carbonated beverages, clear teas, apple juice) until 3 hours prior to surgery with a maximum of 20 ounces. - No food from midnight until time of surgery - Infants may have breast milk until 4 hours before surgery, formula 6 hours prior to surgery. - Children will be allowed to drink immediately following surgery. If applicable, please bring a bottle or sippy cup to assist with drinking. Juice, water, soda, and popsicles are readily available. For infants on formula, please bring formula the day of surgery. Pacifiers are allowed. Take the following medications with a SIP of water the morning of surgery: ___as directed by Dr. Tirado Medications to discontinue per physician Date to take last dose Please no make-up, nail libyan, hairspray, perfume, deodorant, or body powder the day of surgery. No jewelry (including any body piercings) or valuables the day of surgery, leave them at home. Please take a shower or bath the night before, or the morning of, surgery with an antibacterial soap. Wear comfortable, loose fitting clothing. Children are encouraged to wear pajamas. - Jewelry must be removed prior to entering the operating room. Rings and piercings that are not removed may be cut off. - The hospital will not accept responsibility for valuables. - Please leave all valuables, including medications, at home the day of surgery. If you are going home after surgery, a licensed wood pile driver operator must drive you home. - NO public transportation without another adult. - We recommend that an adult stay with you for 24 hours following discharge. - We also recommend that you do not drive, make important decision, drink alcoholic beverages, or take any drugs that were not prescribed by your health care provider for at least 24 hours after your discharge time. For Pediatric surgeries, we recommend two adults accompany the child home (only one inside the building at this time). Follow any additional instructions given to you from your surgeon. If you or anyone in your household have experienced Covid symptoms in the past week, please notify your surgeon or the nurse liaison at the phone number below for possible testing. Telephone instructions given to __patient and asked if any additional questions and then verbalized understanding. Patient advised to call surgeon office or pre surgery nurse liaison [phone] if any additional questions.
[2022-01-19 11:41] LABS: Basophils Percent Auto 0.6 % (0.2-1.2); Eosinophils Absolute Auto 0.1 K/mm3 (0-0.3); Eosinophils Percent Auto 1.3 % (0-4.4); Hematocrit 34.5 % (42.0-52.0); Hemoglobin 11.1 g/dL (14.0-18.0); Immature Granulocyte Absolute 0.03 K/mm3 (0.00-0.031); Immature Granulocyte Percent A 0.4 % (0-0.5); Lymphocytes Absolute Auto 0.96 K/mm3 (0.9-3.2); Mean Corpuscular HGB Conc 32.2 g/dl (32-36); Mean Corpuscular Volume 93.2 fl (80-100); Mean Platelet Volume 9.4 fl (7.4-10.4); Monocytes Absolute Auto 0.9 K/mm3 (0.1-0.6); Neutrophils Absolute Auto 4.8 K/mm3 (1.3-6.7); Neutrophils Percent Auto 70.7 % (45.5-73.1); Platelet Count Result 378 k/mm3 (150-375); Red Cell Distribution Width 14.8 % (11.5-14.5); White Blood Count 6.8 K/mm3 (4.5-10.0)
[2022-01-19 11:54] LABS: Alanine Aminotransferase 19 U/L (6-50); Albumin Level 3.7 g/dL (3.5-5.1); Alkaline Phosphatase 109 U/L (38-126); Anion Gap 7 mmol/L (8-16); Aspartate Amino Transferase 30 U/L (17-59); Bilirubin,Total 0.4 mg/dL (0.2-1.3); Blood Urea Nitrogen 9 mg/dL (9-20); Calcium 8.4 mg/dL (8.4-10.2); Carbon Dioxide 26 mmol/L (22-30); Chloride 101 mmol/L (98-107); Estimated CRCL calculation 164 ml/min; Estimated Glomerular Filt Rate > 60; Glucose 109 mg/dL (65-110); Sodium 134 mmol/L (137-145)
[2022-01-19 11:56] LABS: CRP 4.9 mg/dL (<1.0)
--- NOTE | 2022-01-19 12:04 | ECG_ITS ---
Measurements Intervals [place] Rate: 91 P: 52 UT: 160 QRS: 53 QRSD: 94 T: 47 QT: 354 QTc: 438 Interpretive Statements SINUS RHYTHM BASELINE ARTIFACT- I, III, AVL NORMAL ECG Electronically Signed On 01-19-2022 12:40:57 CDT by Zach Lopez D.O.
[2022-01-19 12:37] VITALS: BP 122/75; PULSE 93; RESP 14; TEMP 36.6; O2SAT 94
--- NOTE | 2022-01-19 14:05 | SUR.PREOP ---
[address] WALLS DISCUSSED WITH PT AND REASON WHY AND FOLLOW UP. DR WALLS ASSESSED BEDSIDE AT BEDSIDE. 1400 UNSTANDING OF THIS BY PT AND . ENSURE AND APPLE JUICE TOLERATED WELL BEFORE DC.
--- NOTE | 2022-01-19 15:44 | P.OP_ITS ---
Procedure Note - Detailed Date of Procedure 01/19/22 Pre-op Diagnosis colorectal anastomosis leak (contained with drain in place) Post-op Diagnosis Same Procedure Performed Re-suturing of ELOISA drain left lower quadrant the abdomen Surgeon Loki Tirado MD Special Education Bus Driver SAVITA Lauren, OR nurse Anesthesia Local ( 2% lidocaine with epi) Indications The current suture appears to be pulling through the skin and is causing significant discomfort. Findings Normal appearing skin around drain exit site Description of Procedure After appropriate time-out in the preoperative area and after informing the patient and significant other of the plan I carefully under sterile conditions with local anesthetic re-sutured the patient's ELOISA drain Details: Initial prep around the drain and or the drain was exiting with chlorhexidine. A sterile blue towels placed above and below the drain area. On other sterile drape we opened a scissors, suture 3-0 Ethilon, needle older, and syringes and needles for local anesthetic administration. Using 18 gauge needle a obtain sterilely 5 cc of 2% xylocaine with epinephrine. We then injected this underneath the current stitch holding the drain and around the drain exit site. We waited further D seconds and then I placed a new suture on the medial side of the drain the other having been on the lateral. I then cut the old suture at the skin cut off the loop but ileus left some of it tied around the drain so we would know where it had been originally been sutured. I then gently pulled out on the drain slightly it seemed to come out about another cm and seemed to rest there nicely I then tied an air knot was about 5 throws then wrapped the 3-0 nylon around the drain and tied another not. We cut this and then we dressed it with a 2 x 2 and Tegaderm. Patient tolerated the procedure well. Estimated blood loss less than 1 cc Home going instructions were then given please see discharge orders and papers. This included a written type doubt patient instructions. He will be following up in the office later this week. Implants none Estimated Blood Loss 1 Drains Yes ( No new drains just maintaining the current one.) Packing No Pathology None sent Complications No immediate complications Condition Stable Disposition Other ( Planned OR canceled after thorough discussion patient back home.) [facility] Billing Surgery - Charge Forward: Surgery Billing
--- NOTE | 2022-01-19 16:48 | PM.PNGS ---
Progress Note: A&P Assessment and Plan (1) Anastomotic leak of intestine: Onset Date: 01/14/22 Code(s): K91.89 - Other postprocedural complications and disorders of digestive system Status: Acute Assessment and Plan: this is the main reason for the patient's visit. This time I saw the patient examined him and took and interval history. See above. Following this I gave the patient 3 choices as to continuing treatment. They are outlined below: 1. The least aggressive would be to go home on antibiotics until he finishes the current course. 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 If he decided on this option he would also need to use his CPAP whenever he sleeps. This means even naps. Also he would need to take his temperature twice a day or if he feels like it has a fever and let me know if he begins running a temperature greater than 100.5. He would need to stay on clear liquids with the only other thing to drink 3 surgery ensures per day until his next office visit were 0 when we would re-evaluate. This will be 2021. he will empty the ELOISA drain twice a day carefully recording how much is emptied. He will also monitor it and if it becomes decompressed they will empty it and recordhow much was out. Two. Next option would be to be admitted to the hospital go on complete bowel rest other than occasional sips of water and received PPN initially then possibly a midline or PICC line and TPN for complete bowel rest with parental nutrition. Would probably keep him on IV antibiotics for a day or 2 and then try stopping those if he continued to have a low white count as he did today. ( CBC, CMP, and CRP were all checked today and both the white count which was normal and the CRP are improved. Patient's to [place] appears to be okay as he had normal total protein and albumin on the CMP. would then check with his insurance to see if they would cover home TPN and then keep him on bowel rest and TPN until this fistula closed. ( he realizes that both of the above are temporary solutions and if they work he would avoid an ostomy. However, if they do not work we may need to again consider the more aggressive option listed below). 3. The most aggressive option is that outlined on last Wednesday's previous office note which would be a laparoscopy with operative laparoscopy and creation of a loop or divided ileostomy on the right side of the abdomen 1 to 1-1/2 feet back from the ileocecal valve. This would allow complete diversion,and then hopeful healing of the current anastomotic leak at the colorectal level. He would also need to stop smoking in order for all this to heal. He would also need to religiously use his CPAP both in the hospital and home. After thorough discussion patient opted for option 1. Above in realizes again that this may not work and that we may have to change planned to 1 of the others depending on how he does. However, it seems to be a good sign that the patient has done well over the weekend without fevers and with his white count stay normal while on oral antibiotics. (2) Tobacco abuse: Code(s): Z72.0 - Tobacco use Status: Chronic Assessment and Plan: I spent least 5 minutes discussing with him the importance of cessation in order to prevent nicotine from inhibiting healing. (3) Obstructive sleep apnea: Code(s): G47.33 - Obstructive sleep apnea (adult) (pediatric) Status: Chronic Assessment and Plan: Use his CPAP all the time when he sleeps in order to improve oxygenation to the healing tissues. (4) Obesity (BMI 30-39.9): Code(s): E66.9 - Obesity, unspecified Status: Chronic Assessment and Plan: Patient will be on a somewhat restricted diet because of this problem. He k
== END 2022-01-19 14:25 | disposition home or self-care (01) ==
PROVIDERS: PCP Internal Medicine; Visit Provider Surgery
PROC: 0D1E4Z4 Bypass Large Intestine to Cutaneous, Percutaneous Endoscopic Approach (ICD-10-PCS; principal; 2022-01-19 13:00)
DX: T83.84XA Pain due to genitourinary prosthetic devices, implants and grafts, initial encounter (principal); Z98.0 Intestinal bypass and anastomosis status; Z90.49 Acquired absence of other specified parts of digestive tract; Z87.19 Personal history of other diseases of the digestive system; Y83.8 Other surgical procedures as the cause of abnormal reaction of the patient, or of later complication, without mention of misadventure at the time of the procedure; F17.210 Nicotine dependence, cigarettes, uncomplicated; E66.2 Morbid (severe) obesity with alveolar hypoventilation; Z68.35 Body mass index [BMI] 35.0-35.9, adult
CPT/HCPCS: 36415; 80053; 85025; 86140; 86850; 86900; 86901; 93005; 99213; A9270; G0463; J1170; J1885; J2250; J3010

== ENCOUNTER 2022-01-28 09:42 | Outpatient (CLI) | payer OTHER, SELFPAY ==
[2022-01-28 10:17] LABS: Basophils Percent Auto 0.3 % (0.2-1.2); Eosinophils Absolute Auto 0.2 K/mm3 (0-0.3); Eosinophils Percent Auto 2.4 % (0-4.4); Hematocrit 34.2 % (42.0-52.0); Hemoglobin 10.9 g/dL (14.0-18.0); Immature Granulocyte Absolute 0.05 K/mm3 (0.00-0.031); Immature Granulocyte Percent A 0.5 % (0-0.5); Lymphocytes Absolute Auto 1.92 K/mm3 (0.9-3.2); Lymphocytes Percent Auto 20.4 % (18.3-44.2); Mean Corpuscular HGB Conc 31.9 g/dl (32-36); Mean Corpuscular Volume 94.2 fl (80-100); Mean Platelet Volume 9.7 fl (7.4-10.4); Monocytes Percent Auto 10.4 % (2.6-8.5); Neutrophils Absolute Auto 6.2 K/mm3 (1.3-6.7); Platelet Count Result 315 k/mm3 (150-375); Red Blood Count 3.63 M/mm3 (4.6-6.20); Red Cell Distribution Width 14.9 % (11.5-14.5); White Blood Count 9.4 K/mm3 (4.5-10.0)
[2022-01-28 10:19] LABS: Alanine Aminotransferase 16 U/L (6-50); Albumin Level 3.6 g/dL (3.5-5.1); Alkaline Phosphatase 102 U/L (38-126); Anion Gap 9 mmol/L (8-16); Aspartate Amino Transferase 26 U/L (17-59); Bilirubin,Total 0.6 mg/dL (0.2-1.3); Blood Urea Nitrogen 16 mg/dL (9-20); CRP 3.6 mg/dL (<1.0); Calcium 8.9 mg/dL (8.4-10.2); Carbon Dioxide 28 mmol/L (22-30); Chloride 101 mmol/L (98-107); Estimated Glomerular Filt Rate > 60; Glucose 101 mg/dL (65-110); Potassium 5.4 mmol/L (3.4-5.0); Sodium 138 mmol/L (137-145)
== END 2022-01-28 09:43 | disposition home or self-care (01) ==
PROVIDERS: PCP Internal Medicine; Visit Provider Surgery
DX: K57.20 Diverticulitis of large intestine with perforation and abscess without bleeding (principal); K91.89 Other postprocedural complications and disorders of digestive system; T81.32XA Disruption of internal operation (surgical) wound, not elsewhere classified, initial encounter
CPT/HCPCS: 36415; 80053; 85025; 86140

== ENCOUNTER 2022-02-10 08:37 | Outpatient (CLI) | payer OTHER, SELFPAY ==
[2022-02-10 09:02] LABS: Hematocrit 34.7 % (42.0-52.0); Hemoglobin 11.4 g/dL (14.0-18.0); Mean Corpuscular HGB Conc 32.9 g/dl (32-36); Mean Corpuscular Hemoglobin 30.2 pg (26-34); Mean Platelet Volume 9.5 fl (7.4-10.4); Platelet Count Result 278 k/mm3 (150-375); Red Blood Count 3.77 M/mm3 (4.6-6.20); Red Cell Distribution Width 15.3 % (11.5-14.5); White Blood Count 7.3 K/mm3 (4.5-10.0)
[2022-02-10 09:20] LABS: Alanine Aminotransferase 18 U/L (6-50); Alkaline Phosphatase 98 U/L (38-126); Anion Gap 2 mmol/L (8-16); Aspartate Amino Transferase 23 U/L (17-59); Bilirubin,Total 0.4 mg/dL (0.2-1.3); Blood Urea Nitrogen 18 mg/dL (9-20); CRP 3.6 mg/dL (<1.0); Calcium 8.9 mg/dL (8.4-10.2); Carbon Dioxide 33 mmol/L (22-30); Chloride 104 mmol/L (98-107); Estimated Glomerular Filt Rate > 60; Glucose 108 mg/dL (65-110); Potassium 4.5 mmol/L (3.4-5.0); Sodium 139 mmol/L (137-145)
== END 2022-02-10 08:38 | disposition home or self-care (01) ==
LOC: ANHLAB 08:39
PROVIDERS: PCP Internal Medicine; Visit Provider Surgery
DX: K63.2 Fistula of intestine (principal); K91.89 Other postprocedural complications and disorders of digestive system
CPT/HCPCS: 36415; 80053; 85027; 86140

== ENCOUNTER 2022-02-17 10:44 | Outpatient (CLI) | payer OTHER, SELFPAY ==
--- NOTE | ~2022-02-17 | XR_ITS ---
EXAMINATION: XR enema water soluble DATE: 02/17/2022 12:23 INDICATION: Other postprocedural complications and disorders TECHNIQUE: A scrum coach radiograph was obtained. A catheter was inserted into the patient's rectum. Contra st was infused by gravity. Fluoroscopic spot images and conventional radiographs were obtained. Fluor oscopy exposure time was 1.3 minutes. 21 images were obtained. COMPARISON: 01/16/2022 FINDINGS: There is persistent stricturing of the sigmoid colon near the anastomosis. No inocente extrava sation of contrast is identified as seen on the comparison examination. There is contrast within the ELOISA drain and drainage tubing. The visualized portions of the remaining colon are unremarkable. IMPRESSION: 1. Persistent stricture of the sigmoid colon near the surgical anastomosis. 2. Small persistent leak inferred by the presence of contrast in the ELOISA drain and drainage tubing. No large volume extravasation as seen on the comparison examination. Findings were discussed with Dr. Fabian brock. Reviewed, dictated and finalized at location A. IMPRESSION: 1. Persistent stricture of the sigmoid colon near the surgical anastomosis. 2. Small persistent leak inferred by the presence of contrast in the ELOISA drain a nd drainage tubing. No large volume extravasation as seen on the comparison exa mination. Findings were discussed with Dr. Tirado.
== END 2022-02-17 10:45 | disposition home or self-care (01) ==
LOC: ANHIMG 10:45
PROVIDERS: PCP Internal Medicine; Visit Provider Surgery
DX: K91.89 Other postprocedural complications and disorders of digestive system (principal)
CPT/HCPCS: 74270

== ENCOUNTER 2022-03-05 08:01 | Outpatient (CLI) | payer OTHER, SELFPAY ==
[2022-03-05 08:32] LABS: Basophils Percent Auto 0.6 % (0.2-1.2); Eosinophils Absolute Auto 0.3 K/mm3 (0-0.3); Eosinophils Percent Auto 4.8 % (0-4.4); Hemoglobin 11.6 g/dL (14.0-18.0); Immature Granulocyte Absolute 0.02 K/mm3 (0.00-0.031); Immature Granulocyte Percent A 0.3 % (0-0.5); Lymphocytes Absolute Auto 2.07 K/mm3 (0.9-3.2); Lymphocytes Percent Auto 33.2 % (18.3-44.2); Mean Corpuscular HGB Conc 31.4 g/dl (32-36); Mean Corpuscular Hemoglobin 30.1 pg (26-34); Mean Corpuscular Volume 95.9 fl (80-100); Mean Platelet Volume 9.4 fl (7.4-10.4); Monocytes Absolute Auto 0.7 K/mm3 (0.1-0.6); Monocytes Percent Auto 11.2 % (2.6-8.5); Neutrophils Absolute Auto 3.1 K/mm3 (1.3-6.7); Neutrophils Percent Auto 49.9 % (45.5-73.1); Platelet Count Result 256 k/mm3 (150-375); Red Blood Count 3.86 M/mm3 (4.6-6.20); Red Cell Distribution Width 15.5 % (11.5-14.5); White Blood Count 6.2 K/mm3 (4.5-10.0)
[2022-03-05 08:36] LABS: Alanine Aminotransferase 14 U/L (6-50); Alkaline Phosphatase 91 U/L (38-126); Anion Gap 2 mmol/L (8-16); Aspartate Amino Transferase 20 U/L (17-59); Bilirubin,Total 0.1 mg/dL (0.2-1.3); Blood Urea Nitrogen 19 mg/dL (9-20); CRP 2.7 mg/dL (<1.0); Calcium 8.7 mg/dL (8.4-10.2); Carbon Dioxide 32 mmol/L (22-30); Chloride 106 mmol/L (98-107); Estimated Glomerular Filt Rate > 60; Glucose 93 mg/dL (65-110); Potassium 4.1 mmol/L (3.4-5.0); Sodium 140 mmol/L (137-145)
== END 2022-03-05 08:02 | disposition home or self-care (01) ==
LOC: ANHLAB 08:02
PROVIDERS: PCP Internal Medicine; Visit Provider Surgery
DX: K91.89 Other postprocedural complications and disorders of digestive system (principal)
CPT/HCPCS: 36415; 80053; 85025; 86140

== ENCOUNTER 2022-03-27 02:45 | Day surgery (SDC) | payer OTHER, SELFPAY ==
[2022-03-25 13:33] VITALS: BMI 33.0
--- NOTE | 2022-03-26 09:56 | SUR.PREOP ---
0956 spoke with patient regarding his magnesium citrate. Patient said he had been notified to not take that portion of the prep. No other questions voiced.
--- NOTE | 2022-03-27 07:42 | WPDANESEPPF ---
Anes - Initial Pre Proc Eval Procedure: Operation Date: 03/27/22 09:30 Proposed Procedures p Flexible Sigmoidoscopy - Yahir Sanderson MD Date/Time: 03/27/22 07:42 Surgeon: Yahir Sanderson MD Pre Op Diagnosis: colocutaneous fistula Patient Data Age: 47 Gender: M Height: 1.91 m Weight: 120 kg Allergies Allergy/AdvReac Type Severity Reaction Status Date / Time Penicillins Allergy Unknown unknown Verified 03/27/22 08:15 Home Medications Medication Instructions Recorded Confirmed Type vtunshvk-dilebggtw-zyflmotvg 3.5 4 drp EACH EAR Q6H 03/12/22 03/27/22 History mg/mL-10,000 unit/mL-1 % ear solution ofloxacin 0.3 % ear drops 10 drp EACH EAR DAILY 03/12/22 03/27/22 History Patient hx anesthesia problems: none Family hx anesthesia problems: none Results Review: All pre-operative results and documents have been reviewed as part of the pre-operative evaluation. 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 with body mass index (BMI) greater than or equal to 70 in adult resolved as of 03/24/2022 History of diverticulitis of colon Obstructive sleep apnea Stricture of sigmoid colon (Unknown) S/P resection 12/30/2021 Tobacco abuse Varicose veins of bilateral lower extremities with other complications Surgical History Surgical History History of ear surgery Family History Family History Mother Diabetes mellitus Family history of elevated blood lipids Depression Family history of malignant neoplasm of breast in first degree relative Family history of type 2 diabetes mellitus Father Hypertension Family history of elevated blood lipids Other Family history of cardiovascular disease Family history of malignant neoplasm Social History Social History Smoking packs per day: 0.75 Smoking cigarettes per day: 15.0 Years smoked: 25 Smoking pack-years: 18.75 Smoking status: Current every day smoker Tobacco type: cigarettes Second hand tobacco smoke exposure: Yes Additional smoking assessment comments: Over the past few weeks he has decreased to 5 cigarettes per day Alcohol intake: never Substance use: never Substance use type: does not use Living arrangements: with family Gender identity (if verbalized by the patient): Male Spiritual care concerns: No Anes - Eval Final PreProcedure Day of Procedure 03/27/22 07:42 Patient weight: obese Heart: regular rate and rhythm Lungs: decreased breath sounds Airway: Mallampati scale class II Neurological: alert and oriented Last oral intake: >/= 8 hours ASA classification: III Emergent: no Anesthetic plan: proceed Anesthesia type and monitoring: general GIVS and standard monitoring Results Review: All pre-operative results and documents have been reviewed as part of the pre-operative evaluation. Informed Consent: The patient's anesthetic plan and its attendant risks and benefits were discussed with the patient/family/POA. Questions were solicited and answers provided to the satisfaction of the patient/family/POA.
[2022-03-27 08:16] VITALS: BP 106/71; PULSE 70; RESP 18; TEMP 36.1; O2SAT 100; BMI 35.4
[2022-03-27] MEDS: LACTATED RINGERS 1,000 ML 150 ML IV CONT (08:24)
--- NOTE | 2022-03-27 08:44 | PM.HPGS ---
History of Present Illness History of Present Illness Consent: Risks, benefits, and alternatives have been discussed and questions answered. Patient agrees to proceed with procedure. 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, ELOISA drain still in place with + drainage Review of Systems Constitutional: Constitutional: Denies headache(s) and Denies weakness Eyes: Eyes: Denies blurry vision ENT: Reports Normal hearing present, Denies headache(s) and Denies neck pain Cardiovascular: Cardiovascular: Denies chest pain and Denies dyspnea Respiratory: Respiratory: Denies dyspnea Gastrointestinal: Gastrointestinal: Reports no additional gastrointestinal complaints Genitourinary: Genitourinary: Denies dysuria Musculoskeletal: Musculoskeletal: Denies neck pain Integumentary/Breasts: Skin/Breast: Denies dry skin Neurologic: Reports Normal hearing present, Denies headache(s) and Denies weakness Psychiatric: Psychiatric: Denies anxiety Endocrine: Endocrine: Denies change in body appearance Hematologic/Lymphatic: Hematologic/Lymphatic: Denies easy bleeding Allergic/Immunologic: Allergic/Immunologic: Denies urticaria PMFSH Past Medical History Medical History (Updated 03/24/22 @ 10:29 by Loki Tirado MD) Abnormal colonoscopy acute diverticulitis in 2018 Bowel obstruction 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 with body mass index (BMI) greater than or equal to 70 in adult resolved as of 03/24/2022 History of diverticulitis of colon Obstructive sleep apnea Stricture of sigmoid colon (Unknown) S/P resection 12/30/2021 Tobacco abuse Varicose veins of bilateral lower extremities with other complications Surgical History Surgical History History of ear surgery Family History Family History Mother Diabetes mellitus Family history of elevated blood lipids Depression Family history of malignant neoplasm of breast in first degree relative Family history of type 2 diabetes mellitus Father Hypertension Family history of elevated blood lipids Other Family history of cardiovascular disease Family history of malignant neoplasm Social History Social History Smoking packs per day: 0.75 Smoking cigarettes per day: 15.0 Years smoked: 25 Smoking pack-years: 18.75 Smoking status: Current every day smoker Tobacco type: cigarettes Second hand tobacco smoke exposure: Yes Additional smoking assessment comments: Over the past few weeks he has decreased to 5 cigarettes per day Alcohol intake: never Substance use: never Substance use type: does not use Living arrangements: with family Gender identity (if verbalized by the patient): Male Spiritual care concerns: No Meds Home Medications and Allergies Home Medications Medication Instructions Recorded Confirmed Type ubbaqoix-zyattvpyr-ybdersgog 3.5 4 drp EACH EAR Q6H 03/12/22 03/27/22 History mg/mL-10,000 unit/mL-1 % ear solution ofloxacin 0.3 % ear drops 10 drp EACH EAR DAILY 03/12/22 03/27/22 History Allergies Allergy/AdvReac Type Severity Reaction Status Date / Time Penicillins Allergy Unknown unknown Verified 03/27/22 08:15 Vital Signs Vital Signs - 24 hr 03/27/22 08:16 Temperature 97.0 F L Pulse Rate 70 Respiratory Rate 18 Blood Pressure 106/71 Pulse Oximetry 100 Oxygen Delivery Room Air Exam Const: General: comfortable and no acute distress HENMT: General nose exam: Normal nares present Eyes: General: appearance normal, both eyes and all related structures Neck: Neck: no JVD Resp: Auscultation: clear to auscultation bilatera
[2022-03-27 09:02] VITALS: BP 107/80; PULSE 78; RESP 18; O2SAT 98
[2022-03-27 09:12] VITALS: BP 110/73; PULSE 68; RESP 18; O2SAT 99
[2022-03-27 09:22] VITALS: BP 112/68; PULSE 72; RESP 18; O2SAT 100
--- NOTE | 2022-03-27 09:25 | SUR.PHASEII ---
0915: DR WALLS AND AGRICULTURAL PRODUCTION ENGINEER AT BEDSIDE, ADVANCED ELOISA DRAIN, PLACED BAG OVER DRAIN. MOTHER AT BEDSIDE. PT TOLERATED WELL. INSTRUCTION FROM DR WALLS GIVEN TO PT AND MOTHER.
--- NOTE | 2022-03-27 09:54 | SUR.PHASEII ---
0952: LAYNE SOFTWARE ENGINEERING SUPERVISOR COMPLETED PT INSTRUCTIONS AND TEACHING. PT AND MOTHER STATE UNDERSTANDING.
--- NOTE | 2022-03-27 10:06 | PCWOUND ---
WOCN NOTE Went to GI with Dr Tirado. placed ostomy appliance over drain on left lower abdomen. Instructed patient and mother on how to apply appliance over drain and how to measure.
--- NOTE | 2022-03-30 11:23 | WPDWOUNDNOTE ---
Wound Care Note Date/Time: 03/27/22 11:23 History: Rod was seen today during a flexible sigmoidoscopy to check on a internal portion of the colocutaneous fistula and the anastomotic site of his previous sigmoid resection. At his recent visit on : I recorded that ----Rod returns today for a recheck following? a Sigmoid colon resection with colorectal anastomosis for a strictured area of sigmoid colon related to diverticular disease done on 01/05/2022.? Subsequently he had an anastomotic leak discovered approximately 7-9 days following his surgical intervention and then on 01/19/2022 a resuturing of the ELOISA drain which is in the left lower quadrant of the abdomen? because the stitch pulled through and we were depending on it to adequately drain the area of anastomotic leakage.? Treatment of anastomotic leakage was discussed with the patient at that time and because he was having no systemic signs of infection or problems we elected not to do a diverting ileostomy but to treat as an outpatient with clear liquid diet plus surgery Ensure? nutritional supplement and otherwise bowel rest.? 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 ?? ? Patient stated he has been following his diet as directed, which now includes fruit smoothies, 2 scrambled eggs/ day, and the Ensures. He reports he has returned to work on light duty and he is doing well with no concerns. He reports that his incisions are healing well. He does reports that his drain output has continued to be between 15-18 mL/day over the last week. He has started taking Metamucil daily as recommended. He reports he can tell a difference since started the Metamucil, his BMs are softer and smoother. He is having BMs twice a day. ? ? ? Wound history: Patient has a longstanding ELOISA drain from previous colon resection that internally sits near the site of anastomosis and is draining and anastomotic leak. On the surface this looks like an external drain site incision that has been sutured several times. Wound width: 1.3 cm Wound length: 0. 5 cm Wound depth: unknown Drainage: brownish cloudy liquid Surrounding tissue appearance: mild granulation tissue and normal skin Tunneling: yes ---along the drain itself Percentage granulation tissue: 25% Treatment/Procedures: today the patient had a colonoscopy which showed that the distal end of the drain is actually in opening which is the diameter of the drain at the level of his anastomosis probably below it rather than above it. See op note by Dr. Christine. Therefore, I worked with Marleny from Wound and ostomy and we decided to pull the drain back part way so that it would perhaps be out of the lumen of the colon but yet draining the tract that is a colo-cutaneous fistula at this point. In the recovery area of the GI lab with the patient's previous verbal permission and discussion of the plan, we went ahead and exposed the drain. The current suture holding the drain was snipped but that portion around the translucent tubing was left intact and the drain was pulled out about 5 cm such that about 2-3 cm of the white flatter part of the drain (a flat 10 [place] ELOISA) was exposed at the external opening. I then used a 3-0 nylon to suture this to the edge of the wound and then brought it through the drain itself such that the drain could not slip back in. We cut the drain off approximately 3 cm from where it changed to a circular dimension. Then ostomy bag was applied with only the drain exit site exposed the inside of the bag and Karya of the ostomy device protecting his surrounding skin. ( see wound care nurse note). Dressings: No dressings other than the 1 piece ostomy bag now containing an approximate 5 cm portion of the drain exiting the skin at the level of the left lower quadrant of the abdomen. Patient was taught how to empty and record the amount of drainage coming into the ostomy bag. Assessment and Plan Asse
--- NOTE | 2022-04-17 16:48 | WPDWOUNDNOTE ---
Wound Care Note Date/Time: 04/17/22 12:48 History: Rod returns today for a recheck following?a Sigmoid colon resection with colorectal anastomosis for a strictured area of sigmoid colon related to diverticular disease done on 01/05/2022.? Subsequently he had an anastomotic leak discovered approximately 7-9 days following his surgical intervention and then on 01/19/2022 a resuturing of the ELOISA drain which is in the left lower quadrant of the abdomen,?because the stitch pulled through and we were depending on it to adequately drain the area of anastomotic leakage.? Treatment of anastomotic leakage was discussed with the patient at that time and because he was having no systemic signs of infection or problems we elected not to do a diverting ileostomy but to treat as an outpatient with clear liquid diet plus surgery Ensure?nutritional supplement and otherwise bowel rest.? 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 ? Since the patient was seen last on 04/02 he states that he has felt well and he has had minimal drainage out where he has been packing in left lower quadrant drain site.? ( this is the site where his drain slid out prematurely after he had colonoscopy to check on the anastomotic site and the possible colocutaneous fistula). He has been having bowel movements okay (he states these are formed and soft) and eating okay he has maintained a strict diet of to scrambled eggs in the morning, some fruit smoothies and surgery Ensure and some fruits mixed as a smoothie.? He has also tried minimizes smoking. I again encouraged him to go completely off the smoking if possible. I also encouraged him to try to be careful when he advances his diet not to gain weight. Wound history: Wound history: This wound is really a ELOISA drain site that was also a laparoscopic port site at the time of his surgery on 01/05/2022.? We are treating in the wound clinic because once the white part of the ELOISA drain exited the skin we could no longer keep suction and a bulb on this to control the drainage.?He needed an ostomy bag that can be specifically fashioned for the current wound and drain. ? Therefore, I asked for clearance/? Pre approval from the patient's insurance to go ahead with wound clinic visits and this is been approved. ? ? At the depth of the wound being drained there was most likely a small opening at the area of the anastomosis from his previous colorectal anastomotic site in the deep left pelvis. The stitch holding this in placed on 03/27/2022 apparently pulled through the skin and then the drain backed itself out over 36 hours that weekend and ended up being totally in the ostomy bag when he was seen on 03/30/2022.? Since his last visit on 04/02 he has had minimal drainage and none that looked like the cloudy brown drainage that he had when his drain catheter was present still at the wound site.? ( over the weekend of 03/28/2022 the drain backed out into the bag that was acting as a receptacle for any drainage when I had pulled the white part of his ELOISA drain out and sutured to this the edge of wound.? Apparently the suture pulled through and over 3 days following his colonoscopy the drain came completely out into the bag).? Therefore, on 03/30/2022 we began simply packing the external opening to allow to heal from the inside out.? Initially we will get quarter-inch Nu Gauze 1 strand down about 10 cm.? Now it is about 2 cm deep and the external opening is only 0.5 x 0.3 cm in size and needs to be dilated daily with a Q-tip. I think this is healing and gradually and he is having no significant drainage from it anymore.. Wound width: 0.8 cm Wound length: 0.3 cm Wound depth: 2 cm Drainage: serosanguineous Surrounding tissue appearance: normal appearing skin Tunneling: none Percentage granulation tissue: this is a granulating tract Treatment/Procedures: will continue to have the patient back with 1 strand of plain quar
== END 2022-03-27 10:05 | disposition home or self-care (01) ==
PROVIDERS: PCP Internal Medicine; Visit Provider Internal Medicine Gastroenterology
PROC: 0DJD8ZZ Inspection of Lower Intestinal Tract, Via Natural or Artificial Opening Endoscopic (ICD-10-PCS; CPT 45330; principal; 2022-03-27 09:30)
DX: K63.2 Fistula of intestine (principal); Z98.0 Intestinal bypass and anastomosis status; Z90.49 Acquired absence of other specified parts of digestive tract; G47.33 Obstructive sleep apnea (adult) (pediatric); Z87.19 Personal history of other diseases of the digestive system; F17.210 Nicotine dependence, cigarettes, uncomplicated; E66.9 Obesity, unspecified; Z68.35 Body mass index [BMI] 35.0-35.9, adult
CPT/HCPCS: 45330; J2704; J7120

== ENCOUNTER 2022-04-17 07:16 | Outpatient (RCR) | payer OTHER, SELFPAY ==
[2022-03-23 14:05] VITALS: BMI 34.4
--- NOTE | 2022-03-24 10:24 | WPDWOUNDNOTE ---
Wound Care Note Date/Time: 03/23/22 13:24 History: Rod returns today for a recheck following a Sigmoid colon resection with colorectal anastomosis for a strictured area of sigmoid colon related to diverticular disease done on 01/05/2022. Subsequently he had an anastomotic leak discovered approximately 7-9 days following his surgical intervention and then on 01/19/2022 a resuturing of the ELOISA drain which is in the left lower quadrant of the abdomen because the stitch pulled through and we were depending on it to adequately drain the area of anastomotic leakage. Treatment of anastomotic leakage was discussed with the patient at that time and because he was having no systemic signs of infection or problems we elected not to do a diverting ileostomy but to treat as an outpatient with clear liquid diet plus surgery Ensure nutritional supplement and otherwise bowel rest. 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 Patient stated he has been following his diet as directed, which now includes fruit smoothies, 2 scrambled eggs/ day, and the Ensures. He reports he has returned to work on light duty and he is doing well with no concerns. He reports that his incisions are healing well. He does reports that his drain output has continued to be between 15-18 mL/day over the last week. He has started taking Metamucil daily as recommended. He reports he can tell a difference since started the Metamucil, his BMs are softer and smoother. He is having BMs twice a day. Today he called my office because the suture holding the drain again pulled through and the drain has come out a ways. Therefore, we arranged to see him today instead of 2 days from now which had been originally planned. At this point we will plan to use a local anesthetic and re-sutured the drain so that it will not inadvertently come out sooner than what I have planned for. Wound history: This wound is really a ELOISA drain site that was also a laparoscopic port site at the time of his surgery on 01/05/2022. We are treating the wound clinic because once the white part of the ELOISA drain exits the skin will no longer be able to keep suction and a bulb on this to control the drainage. May need an ostomy bag that can be specifically fashion for the current wound and drain therefore, I asked for clearance/ Pre approval from the patient's insurance to go ahead with wound clinic visits and this is been approved. at the depth of the wound being drained there was most likely a small opening at the area of the anastomosis from his previous colorectal anastomotic site in the deep felt pelvis. Wound width: 0.5 cm Wound length: 0.5 cm Wound depth: unknown ( Patient has drain in place ----It may be as long as 25 cm) Drainage: Cloudy brownish díaz in color Surrounding tissue appearance: normal appearing skin surrounding the ELOISA drain exit site with a little bit of granulation tissue in some places. Tunneling: None other than along the drain itself. Percentage granulation tissue: Not applicable Treatment/Procedures: Today I went ahead and placed local anesthetic at the exit site of the drain in left lower quadrant. Time-out was performed and the area was cleansed with Betadine after removing all of the dressing. The 3-0 nylon suture that had been used to suture the last time was noted to be a proximally 3 cm from the skin at this time. This would seem to indicate that the drainage backed out by 3 cm in the last 24 hours. Following this a 3-0 nylon suture was used to place a [id number]-[id number]-[id number] suture in the skin on the medial side of the drain inferiorly. An air knot was tied about 0.5 cm above the skin level and then it was wrapped around the drain once and tied to tie it securely between knots and suture cut. This again held the drain at this spot. Prior to suturing this ELOISA drain I did pull gently out on the drain while it was not sutured and I could see the junctio
[2022-04-02 11:33] LABS: Basophils Absolute Auto 0.1 K/mm3 (0.0-0.1); Basophils Percent Auto 0.6 % (0.2-1.2); Eosinophils Absolute Auto 0.3 K/mm3 (0-0.3); Eosinophils Percent Auto 3.4 % (0-4.4); Hemoglobin 12.7 g/dL (14.0-18.0); Immature Granulocyte Absolute 0.02 K/mm3 (0.00-0.031); Immature Granulocyte Percent A 0.2 % (0-0.5); Lymphocytes Absolute Auto 2.54 K/mm3 (0.9-3.2); Lymphocytes Percent Auto 30.8 % (18.3-44.2); Mean Corpuscular HGB Conc 31.8 g/dl (32-36); Mean Corpuscular Hemoglobin 30.5 pg (26-34); Mean Corpuscular Volume 96.2 fl (80-100); Mean Platelet Volume 9.8 fl (7.4-10.4); Monocytes Absolute Auto 0.8 K/mm3 (0.1-0.6); Monocytes Percent Auto 9.2 % (2.6-8.5); Neutrophils Absolute Auto 4.6 K/mm3 (1.3-6.7); Neutrophils Percent Auto 55.8 % (45.5-73.1); Platelet Count Result 252 k/mm3 (150-375); Red Blood Count 4.16 M/mm3 (4.6-6.20); Red Cell Distribution Width 14.9 % (11.5-14.5); White Blood Count 8.3 K/mm3 (4.5-10.0)
[2022-04-02 11:49] LABS: Alanine Aminotransferase 18 U/L (6-50); Albumin Level 4.1 g/dL (3.5-5.1); Alkaline Phosphatase 112 U/L (38-126); Anion Gap 7 mmol/L (8-16); Aspartate Amino Transferase 20 U/L (17-59); Bilirubin,Total 0.4 mg/dL (0.2-1.3); Blood Urea Nitrogen 21 mg/dL (9-20); CRP 1.3 mg/dL (<1.0); Calcium 8.6 mg/dL (8.4-10.2); Carbon Dioxide 31 mmol/L (22-30); Chloride 103 mmol/L (98-107); Estimated CRCL calculation 128 ml/min; Estimated Glomerular Filt Rate > 60; Glucose 94 mg/dL (65-110); Potassium 3.9 mmol/L (3.4-5.0); Sodium 141 mmol/L (137-145)
--- NOTE | 2022-04-02 22:02 | WPDWOUNDNOTE ---
Wound Care Note Date/Time: 04/02/22 11:02 History: At his recent visit on : I recorded that ----Rod returns today for a recheck following?a Sigmoid colon resection with colorectal anastomosis for a strictured area of sigmoid colon related to diverticular disease done on 01/05/2022.? Subsequently he had an anastomotic leak discovered approximately 7-9 days following his surgical intervention and then on 01/19/2022 a resuturing of the ELOISA drain which is in the left lower quadrant of the abdomen? because the stitch pulled through and we were depending on it to adequately drain the area of anastomotic leakage.? Treatment of anastomotic leakage was discussed with the patient at that time and because he was having no systemic signs of infection or problems we elected not to do a diverting ileostomy but to treat as an outpatient with clear liquid diet plus surgery Ensure?nutritional supplement and otherwise bowel rest.? 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 ?? ? Since the patient was seen on Wednesday of this week he states that he has felt well he has had minimal drainage out where he has been packing in left lower quadrant drain site. He has been having bowel movements okay and eating okay he has maintained a strict diet of clear liquids with only about 3 smoothies a day made with surgery Ensure and some fruits. He has also tried minimizes smoking.. Wound history: This wound is really a ELOISA drain site that was also a laparoscopic port site at the time of his surgery on 01/05/2022.? We are treating the wound clinic because once the white part of the ELOISA drain exits the skin we will no longer be able to keep suction and a bulb on this to control the drainage.? May need an ostomy bag that can be specifically fashioned for the current wound and drain. Therefore, I asked for clearance/? Pre approval from the patient's insurance to go ahead with wound clinic visits and this is been approved. ? ? at the depth of the wound being drained there was most likely a small opening at the area of the anastomosis from his previous colorectal anastomotic site in the deep felt pelvis. Since his last visit Wednesday he has had minimal drainage and none that looked like the cloudy brown drainage that he had when his catheter was present still at the wound site. ( over the weekend last the drain backed out into the bag that was acting as a receptacle for any drainage when I had pulled the white part of his ELOISA drain out and sutured to this the edge of wound. Suture pulled through and over 3 days following his colonoscopy the drain came completely out into the bag. Therefore on 03/30/2022 we began simply packing the external opening to allow to heal from the inside out. Initially we will get quarter-inch Nu Gauze 1 strand down about 10 cm. Now it is about 5 cm deep. Wound width: 1 cm Wound length: 0.5 cm Wound depth: 5 cm Drainage: minimal serous Surrounding tissue appearance: normal skin Tunneling: only to the depth noted above Percentage granulation tissue: not applicable Treatment/Procedures: no procedures today Wound was packed down to 5 cm with quarter-inch iodoform Nu Gauze Dressings: quarter-inch iodoform Nu Gauze covered by 4 x 4 and tape Assessment and Plan Assessment and plan (1) Colocutaneous fistula: Code(s): K63.2 - Fistula of intestine Status: Acute Assessment and Plan: This is between his recent anastomotic site and the ELOISA drain site left lower quadrant of the abdomen. It has now been 10 weeks status post sigmoid resection with colorectal anastomosis. 7-10 days following his anastomosis he had increased drainage and apparent fistulization to the area of the ELOISA drain and this has been controlled. The CT and two Gastrografin enemas have shown patent anastomosis with dye going above the area of the anastomosis but with some leakage into the area drained by the ELOISA drain. The patien
--- NOTE | 2022-04-16 12:34 | PCWOUND ---
WOCN NOTE patient did not show up for appointment, called and rescheduled for tomorrow at 12:30.
== END 2022-06-08 09:57 | disposition home or self-care (01) ==
LOC: ANHWOC 07:16
PROVIDERS: PCP Internal Medicine; Visit Provider Surgery
DX: T85.698D Other mechanical complication of other specified internal prosthetic devices, implants and grafts, subsequent encounter (principal)
CPT/HCPCS: 36415; 80053; 85025; 86140; 99212; 99213; A9270; G0463

== ENCOUNTER 2022-05-05 07:42 | Outpatient (CLI) | payer OTHER, SELFPAY ==
--- NOTE | ~2022-05-05 | XR_ITS ---
EXAMINATION: XR enema water soluble DATE: 05/05/2022 08:20 INDICATION: Sigmoid colon perforation. TECHNIQUE: A front of house manager radiograph was obtained. A catheter was inserted into the patient's rectum. Contra st was infused by gravity. Fluoroscopic spot images and conventional radiographs were obtained. Fluor oscopy exposure time was 0.3 minutes. The total number of images was 21. COMPARISON: Contrast enema 02/17/2022, CT abdomen and pelvis 01/16/2022 FINDINGS: There is a stricture of the sigmoid colon. The more proximal colon is normal in caliber. Th ere is no extraluminal contrast. IMPRESSION: 1. Stricture of the sigmoid colon. Reviewed, dictated and finalized at location A.
== END 2022-05-05 07:43 | disposition home or self-care (01) ==
PROVIDERS: PCP Internal Medicine; Visit Provider Surgery
DX: K91.89 Other postprocedural complications and disorders of digestive system (principal); K56.699 Other intestinal obstruction unspecified as to partial versus complete obstruction
CPT/HCPCS: 74270

== ENCOUNTER → 2023-03-18 19:47 | Outpatient (CLI) | payer OTHER, SELFPAY ==
--- NOTE | ~2023-03-18 | XR_ITS ---
EXAM: XR ankle LT min 3V DATE: 03/18/2023 19:58 HISTORY: M25.572 - Pain in left ankle and joints of left foot . COMPARISON: None available. FINDINGS: Normal mineralization. No fracture or dislocation. No lytic or blastic lesion. Mild tibiot alar osteoarthritis. Moderate osteoarthritis in multiple midfoot joints. Achilles and plantar entheso dorothy. Somewhat linear ossification projecting over the lateral soft tissues may represent an old avu lsion fracture, heterotopic bone, or ossification within a peroneal tendon. No erosion or periosteal change. Subdermal calcifications in the medial lower leg. IMPRESSION: No acute osseous finding the left ankle. Chronic and degenerative changes detailed above. Reviewed, dictated and finalized at location K. IMPRESSION: No acute osseous finding the left ankle. Chronic and degenerative c hanges detailed above.
== END ==
LOC: EXPCRAD 19:50
PROVIDERS: PCP Family Medicine; Visit Provider Family Medicine
DX: M25.572 Pain in left ankle and joints of left foot (principal); M19.079 Primary osteoarthritis, unspecified ankle and foot; M76.62 Achilles tendinitis, left leg; M77.52 Other enthesopathy of left foot and ankle
CPT/HCPCS: 73610